=== PATIENT | male | born 1970 | race African-American/Black ===

== ENCOUNTER 2017-10-21 19:10 | Emergency (ER) | payer OTHER, MEDICAID, SELFPAY ==
[2017-10-21 19:12] VITALS: BP 158/117; PULSE 122; RESP 20; TEMP 38.2; O2SAT 94; BMI 51.6
--- NOTE | 2017-10-21 19:19 | ED.DCSUM_ITS ---
- ER Visit Summary Date of Service: 10/21/17 Chief Complaint: Cough, fever, chills History of Present Illness: The patient is a 47 M with history of coronary vascular disease status post stenting, diabetes, hypertension presents with cough, fever, and chills. Patient symptoms began yesterday. He states he started with a mild sore throat and some myalgias. Over the past 24 hours, he had worsening cough. He does describe some scant sputum. He states he has had episodes where his cough somewhat she felt like he wanted to vomit. He has had no chest pain. He denies leg swelling or orthopnea. He has 2 young children at home who are sick, but they have a diarrhea illness. He began have a fevers today. He has no underlying history of lung disease. He does not smoke. Physical Examination: Vital signs reviewed General: Well-nourished, well-developed Head: Normocephalic, atraumatic Eyes: Pupils equal and reactive, extraocular muscles intact Neck, supple, no lymphadenopathy Heart: Regular rate and rhythm Respiratory: No distress, scant wheezing heard throughout Abdomen: Soft, nontender, nondistended, no peritoneal signs Back: Nontender Extremities: Nontender, no edema, no cords Skin: Normal color no rash Neuro: Alert and oriented, no focal or lateralizing deficits Test Results: [] Emergency Department Course and Treatment: The patient did have scant wheezing heard in all lung hickman. He was given a nebulized aerosol with some improvement. He did have a T-max of 100.7. IV was established. He was given fluids, Toradol, and Zofran. He did have improvement of his myalgias. Screening labs were obtained and do demonstrate a chronic anemia which is unchanged. His x-ray does not show focal infiltrate. The patient's had cough with some scant sputum. I am going to treat him for an infectious bronchitis. He is started on doxycycline here. He is counseled on concerning symptoms and reasons to return. He has no hypoxia. He is resting comfortably. I do feel that he is safe for outpatient therapy. I am hesitant to start prednisone as the patient has significant diabetes that is borderline controlled. He is comfortable with this plan of care. Treatment Plan: [] Disposition: Discharge Impression: 1. Infectious bronchitis This note was generated with [employer] software. It may contain incorrect words, spelling, and punctuation that were not noted in review of the chart prior to signing ED Disposition - Plan for ED Patient: Chief Complaint: Cough Instructions: ED Upper Resp Infec Abx Tx Prescriptions: Albuterol Inhaler [Ventolin Hfa] 1 - 2 puff INHALATION Q4H PRN PRN #1 inhaler PRN Reason: Wheezing Benzonatate [Tessalon Perle] 200 mg PO TID PRN PRN #20 cap PRN Reason: Cough Doxycycline Monohydrate 100 mg PO BID #20 cap Referrals: Darion Jasmine DO [Primary Care Provider] -
[2017-10-21] MEDS: Ketorolac 30 MG/ML Syringe IV (19:27)
[2017-10-21] MEDS: Ondansetron 4 MG/2 ML Vial IV (19:27)
[2017-10-21] MEDS: Acetaminophen 500 MG Tablet 1000 MG PO (19:27)
[2017-10-21] MEDS: Ipratropium/Albuterol Sulfate 3 ML AMPUL.NEB INHALATION (19:32)
--- NOTE | 2017-10-21 19:50 | RAD_ITS ---
STUDY: X-RAY CHEST REASON FOR EXAM: Male, 47 years old. Malaise TECHNIQUE: Frontal and lateral views of the chest COMPARISON: 10/20/2015 FINDINGS: The lungs are clear. There are no pleural effusions. There is no pneumothorax. The heart is normal in size. The visualized osseous structures are within normal limits. RAD/Chest PA and Lateral IMPRESSION: No acute thoracic pathology. Electronically Signed: Fabien Padilla, at 20:24 EDT Tel , Service support ,
[2017-10-21 19:53] VITALS: PULSE 122; RESP 20
[2017-10-21 20:16] LABS: Absolute Lymphocyte Count 0.82 X10^3/ul (0.83-4.51); Absolute Neutrophil Count 4.7 X10^3/uL (2.0-7.7); Basophil# 0.03 X10^3/uL; Basophil% 0.4 % (0-1); Eosinophil# 0.11 X10^3/uL; Eosinophils% 1.5 % (0-5); Hematocrit 38.4 % (40-54); Hemoglobin 12.4 g/dl (13.0-16.5); Lymphocyte # 0.82 X10^3/ul (4.0); Lymphocyte % 11.5 % (19-41); Mean Corp Hgb Conc 32.3 g/gl (32-36); Mean Corpuscular Hgb 27.2 pg (27.0-32.0); Mean Corpuscular Volume 84.2 fL (80-94); Mean Platelet Vol. 11.6 fl (6.2-12.0); Monocyte# 1.45 X10^3/uL; Monocyte% 20.3 % (0-10); Neutrophil # 4.73 X10^3/uL (2.7-7.7); Platelet Count 253 K/mm3 (150-450); RBC Distribution Width CV 14.8 % (11.6-14.6); RBC Distribution Width SD 45.4 fl (35.1-43.9); Red Blood Count 4.56 M/mm3 (4.6-6.2); White Blood Count 7.2 K/mm3 (4.4-11.0)
[2017-10-21 20:21] LABS: POSITIVE COUNT NO; POSITIVE DIFFERENTIAL NO; POSITIVE MORPHOLOGY NO
[2017-10-21 20:34] LABS: Anion Gap 9 (5-15); BUN 22 mg/dL (7-18); BUN/Creat Ratio 15.5 RATIO (10-20); Chloride 101 mmol/L (98-107); Creatinine, Serum 1.42 mg/dL (0.70-1.30); EST Glomerular Filtration Rate 57 mL/min (>60); Est Glom Filt Rate - Afr Amer 68 mL/min (>60); Estimated Creatinine Clearance 73.97 ml/min; Glucose 139 mg/dL (74-106); Potassium 5.3 mmol/L (3.5-5.1); Sodium Level 134 mmol/L (136-145)
[2017-10-21] MEDS: Doxycycline 100 MG CAPSULE PO (20:39)
[2017-10-21 20:40] VITALS: BP 137/72; PULSE 119; RESP 20; TEMP 37.8; O2SAT 92
== END 2017-10-21 20:50 | disposition home or self-care (01) ==
LOC: ED 20:13
PROVIDERS: Emergency Provider Emergency Medicine; Family Provider Family Medicine; PCP Family Medicine
DX: J20.8 Acute bronchitis due to other specified organisms (principal); D53.9 Nutritional anemia, unspecified; E66.9 Obesity, unspecified; I25.10 Atherosclerotic heart disease of native coronary artery without angina pectoris; E11.9 Type 2 diabetes mellitus without complications; I10 Essential (primary) hypertension; E78.00 Pure hypercholesterolemia, unspecified; Z95.5 Presence of coronary angioplasty implant and graft; Z79.82 Long term (current) use of aspirin; Z79.4 Long term (current) use of insulin; Z79.84 Long term (current) use of oral hypoglycemic drugs; Z79.899 Other long term (current) drug therapy
CPT/HCPCS: 71046; 80048; 85025; 87804; 94640; 96361; 96374; 96375; 99285; J7030; J7040; A4216; J2405

== ENCOUNTER → 2018-10-28 10:30 | Outpatient (CLI) | payer MEDICAID, SELFPAY ==
[2018-10-28 11:54] LABS: Absolute Lymphocyte Count 4.17 X10^3/ul (0.83-4.51); Basophil# 0.08 X10^3/uL; Eosinophils% 2.5 % (0-5); Hematocrit 42.2 % (40-54); Hemoglobin 13.8 g/dl (13.0-16.5); Lymphocyte # 4.17 X10^3/ul (4.0); Lymphocyte % 52.6 % (19-41); Mean Corp Hgb Conc 32.7 g/gl (32-36); Mean Corpuscular Hgb 27.4 pg (27.0-32.0); Mean Corpuscular Volume 83.9 fL (80-94); Mean Platelet Vol. 10.7 fl (6.2-12.0); Monocyte# 0.47 X10^3/uL; Monocyte% 5.9 % (0-10); Neutrophil % 37.9 % (47-70); POSITIVE COUNT NO; POSITIVE DIFFERENTIAL NO; POSITIVE MORPHOLOGY NO; Platelet Count 241 K/mm3 (150-450); RBC Distribution Width CV 14.6 % (11.6-14.6); RBC Distribution Width SD 44.3 fl (35.1-43.9); Red Blood Count 5.03 M/mm3 (4.6-6.2); White Blood Count 7.9 K/mm3 (4.4-11.0)
[2018-10-28 12:10] LABS: Microalbumin:Creatinine Ratio 86.3 mg/g CRE (<30 mg/g CRE)
[2018-10-28 12:12] LABS: ALB/GLOB Ratio 0.9 RATIO (0.9-2.4); AST(SGOT) 40 U/L (15-37); Alanine Aminotransfer ALT/SGPT 60 U/L (16-61); Alkaline Phosphatase 75 U/L (45-117); Anion Gap 7 (5-15); BUN 14 mg/dL (7-18); BUN/Creat Ratio 11.6 RATIO (10-20); Chloride 105 mmol/L (98-107); Cholesterol 204 mg/dL (200); Creatinine, Serum 1.21 mg/dL (0.70-1.30); EST Glomerular Filtration Rate 68 mL/min (>60); Est Glom Filt Rate - Afr Amer 82 mL/min (>60); Globulin 4.3 g/dL (2.2-4.2); Glucose 124 mg/dL (74-106); High Density Lipoprotein 40 mg/dL; Potassium 3.8 mmol/L (3.5-5.1); Protein, Total 8.3 g/dL (6.4-8.2); Sodium Level 139 mmol/L (136-145); Triglycerides 214 mg/dL; Uric Acid 8.4 mg/dL (3.5-7.2); Very Low Density Lipoprotein 43 mg/dL (5-40)
[2018-10-28 12:22] LABS: Hemoglobin A1c 7.9 % (4.2-6.3)
== END ==
PROVIDERS: Family Provider Family Medicine; PCP Family Medicine; Referring Provider Family Medicine; Visit Provider Family Medicine
DX: E11.59 Type 2 diabetes mellitus with other circulatory complications (principal); I12.9 Hypertensive chronic kidney disease with stage 1 through stage 4 chronic kidney disease, or unspecified chronic kidney disease; E11.22 Type 2 diabetes mellitus with diabetic chronic kidney disease; N18.3 Chronic kidney disease, stage 3 (moderate); E78.5 Hyperlipidemia, unspecified
CPT/HCPCS: 36415; 80053; 80061; 82043; 82570; 83036; 84550; 85025

== ENCOUNTER 2021-02-06 03:58 | Emergency (ER) | payer MEDICAID, SELFPAY ==
[2021-02-06 04:00] VITALS: BP 207/126; PULSE 107; RESP 20; TEMP 36.1; O2SAT 98; BMI 46.2
--- NOTE | 2021-02-06 04:28 | CT_ITS ---
STUDY: CT ABDOMEN AND PELVIS WITH CONTRAST REASON FOR EXAM: Male, 50 years old. Colitis. TECHNIQUE: Transaxial images were obtained from the dome of the diaphragm to the symphysis pubis without oral contrast. IV 100mL Isovue-370 was administered. Sagittal and coronal images were reconstructed. Individualized dose optimization techniques were used for this CT. COMPARISON: 12/20/2015 CT abdomen. FINDINGS: Partially visualized lower chest: Lung bases unremarkable. Liver: Diffuse steatosis again demonstrated. No focal lesions are evident. Gallbladder and biliary tree: No visible gallstones. No pericholecystic inflammation. No biliary ductal dilation. Pancreas: No pancreatic lesions or inflammation. Spleen: Normal size, no splenic lesions. Adrenal glands: No concerning masses. Kidneys and ureters: No hydronephrosis or renal stones. No concerning masses. No ureteral dilation. Bowel: Normal appendix. Wall thickening of the cecum, ascending and transverse colon with mild adjacent edema. Sigmoid colon diverticulosis, no diverticulitis. Fluid throughout the bowel with no formed stool. Small bowel unremarkable. No obstruction. Urinary bladder: No stones or wall thickening. Reproductive:Normal size prostate. Vascular: No abdominal aortic aneurysm. Retroperitoneal and peritoneal spaces: No ascites or free air. No retroperitoneal lesions. Osseous: No acute osseous abnormality. Abdominal and pelvic wall: No concerning findings. CT/Abdomen/Pelvis W IV Cont ONLY IMPRESSION: Mild in severity infectious versus inflammatory right colitis with resulting diarrhea. Hepatic steatosis. Electronically Signed: Dima Hwang MD at 7:12 EDT Tel , Service support ,
[2021-02-06 04:44] LABS: Absolute Lymphocyte Count 1.59 X10^3/uL (0.83-4.51); Absolute Neutrophil Count 6.7 X10^3/uL (2.0-7.7); Basophil# 0.04 X10^3/uL; Basophil% 0.4 % (0-1); Eosinophil# 0.03 X10^3/uL; Eosinophils% 0.3 % (0-5); Hematocrit 43.4 % (40-54); Lymphocyte # 1.59 X10^3/ul (0.83-4.51); Lymphocyte % 16.8 % (19-41); Mean Corp Hgb Conc 32.3 g/dL (32-36); Mean Corpuscular Hgb 26.1 pg (27.0-32.0); Mean Platelet Vol. 9.9 fl (6.2-12.0); Monocyte# 1.02 X10^3/uL; Monocyte% 10.8 % (0-10); NRBC Flagged by Analyzer 0 % (0-5); Neutrophil # 6.74 X10^3/uL (2.7-7.7); Neutrophil % 71.4 % (47-70); Platelet Count 226 K/mm3 (150-450); RBC Distribution Width CV 14.2 % (11.6-14.6); RBC Distribution Width SD 41.1 fl (35.1-43.9); Red Blood Count 5.36 M/mm3 (4.6-6.2); White Blood Count 9.5 K/mm3 (4.4-11.0)
[2021-02-06] MEDS: Ondansetron 4 MG/2 ML Vial IV (04:45)
[2021-02-06] MEDS: 0.9% Normal Saline 1,000 ML 1000 ML IV (04:45)
[2021-02-06] MEDS: Dicyclomine 20 MG/2 ML Vial IM (04:47)
[2021-02-06 05:22] LABS: ALB/GLOB Ratio 0.8 RATIO (0.9-2.4); AST(SGOT) 26 U/L (15-37); Alanine Aminotransfer ALT/SGPT 40 U/L (16-61); Albumin, Serum 3.5 g/dL (3.2-5.0); Alkaline Phosphatase 83 U/L (45-117); Anion Gap 9 (5-15); BUN 11 mg/dL (7-18); BUN/Creat Ratio 9.6 RATIO (10-20); Calcium,Total 8.9 mg/dL (8.5-10.1); Chloride 102 mmol/L (98-107); Creatinine, Serum 1.15 mg/dL (0.70-1.30); EST Glomerular Filtration Rate 71 mL/min (>60); Est Glom Filt Rate - Afr Amer 86 mL/min (>60); Estimated Creatinine Clearance 88.36 ml/min; Globulin 4.4 g/dL (2.2-4.2); Glucose 180 mg/dL (74-106); Lipase 102 U/L (73-393); Potassium 3.6 mmol/L (3.5-5.1); Protein, Total 7.9 g/dL (6.4-8.2); Sodium Level 135 mmol/L (136-145)
--- NOTE | 2021-02-06 06:52 | EX.ED.DYSGE1 ---
HPI History of Present Illness Chief Complaint: Nausea/Vomiting/Diarrhea Informant: patient and spouse/S.O. Narrative Narrative: 50-year-old male presents to the emergency department with 2 days of nausea and diarrhea. He states that initially he thought it was going to be a quick 24-hour illness but is persisted. He notes intermittent abdominal cramping. He states he has had a prior history of diverticulitis. No reported fevers. He denies any bad food exposure [facility] Medical History Congestive heart failure (CHF) Hypertension Home Medications amlodipine 10 mg PO DAILY 12/01/14 [History Last Taken 10/20/15] aspirin 81 mg PO DAILY 12/01/14 [History Last Taken 10/20/15] clopidogrel 75 mg PO DAILY 12/01/14 [History Last Taken 10/20/15] furosemide 40 mg PO DAILY 12/01/14 [History Last Taken 10/20/15] lisinopril 20 mg PO BID 12/01/14 [History Last Taken 10/20/15] spironolactone 25 mg PO BID 12/01/14 [History Last Taken 10/20/15] allopurinol 400 mg PO DAILYCM 05/24/15 [History Last Taken 10/20/15] glipizide 10 mg PO BID 05/24/15 [History Last Taken 10/20/15] linagliptin [Tradjenta] 5 mg PO DAILY 10/20/15 [History Last Taken 10/20/15] oxycodone 7.5 mg PO 4X/DAY 10/20/15 [History Last Taken 10/20/15] atorvastatin 40 mg PO QHS #30 tablet 10/21/15 [Rx Last Taken Unknown] carvedilol 25 mg PO BID #60 tablet 10/21/15 [Rx Last Taken Unknown] albuterol sulfate 1 - 2 puff INHALATION Q4H PRN PRN #1 inhaler 10/21/17 [Rx Last Taken Unknown] benzonatate 200 mg PO TID PRN PRN #20 cap 10/21/17 [Rx Last Taken Unknown] doxycycline monohydrate 100 mg PO BID #20 cap 10/21/17 [Rx Last Taken Unknown] esomeprazole magnesium [Nexium] 20 mg PO BID 10/21/17 [History Last Taken Unknown] insulin degludec [Tresiba Flextouch U-100] 63 unit SQ DAILY 10/21/17 [History Last Taken Unknown] liraglutide [Victoza] 1.8 mg SQ DAILY 10/21/17 [History Last Taken Unknown] ciprofloxacin HCl 500 mg PO BID #14 tablet 02/06/21 [Rx Last Taken Unknown] dicyclomine 20 mg PO TIDAC #20 capsule 02/06/21 [Rx Last Taken Unknown] metronidazole 500 mg PO Q8H #21 tab 02/06/21 [Rx Last Taken Unknown] ondansetron 4 mg PO Q6H PRN PRN #15 tab 02/06/21 [Rx Last Taken Unknown] Allergy/AdvReac Type Severity Reaction Status Date / Time Penicillins Allergy Intermediate Rash Verified 02/06/21 03:58 hydrocodone bitartrate Allergy Mild Itching Verified 02/06/21 03:58 [From Vicodin] Social History (Updated 02/06/21 @ 06:[address] Justen Gaytan, DO) Smoking Status: Never smoker substance use type: does not use ROS ROS ED Constitutional Constitutional ED: Denies chills or weight loss Eyes Eyes: Denies change in vision or diplopia ENT ENT ED: Denies ear pain, rhinorrhea or sore throat Cardiovascular Cardiovascular: Denies chest pain, orthopnea, palpitations or racing heartbeat Respiratory/Chest Respiratory/Chest: Denies cough, dyspnea or orthopnea Gastrointestinal Gastrointestinal: Reports abdominal pain, diarrhea and nausea; Denies vomiting Genitourinary Genitourinary ED: Denies dysuria, hematuria or urinary frequency Musculoskeletal Musculoskeletal: Denies arthralgias or myalgias Integumentary Denies abscess or rash Neurologic Neurologic: Denies headache(s) or weakness Psychiatric Psychiatric: Denies anxiety, depression, suicidal ideation or suicidal thoughts Endocrine Endocrinology: Denies polydipsia, polyphagia or polyuria Allergic/Immunologic Allergic/Immunologic ED: Denies mouth swelling, tongue swelling or urticaria EXAM Physical Exam Const Vital Signs: 02/06/21 04:00 Temperature 96.9 F L Temperature Source Temporal Pulse Rate 107 H Respiratory Rate 20 H Blood Pressure 207/126 H Blood Pressure Mean 153 Pulse Ox 98 Oxygen Delivery Method Room Air Positive well nourished and well developed General Appearance ED: well developed HEENT Reports normocephalic, head/scalp atraumatic and moist mucous membranes Eyes PERRL and EOMs intact bilaterally Neck no lymphadenopathy, supple and no JVD Resp normal respiratory effort and clear to auscultation bilaterally Cardio regular rate, regular rhythm and no murmurs GI normal to inspection, nondistended, normoactive bowel sounds and non-tender Palpation: soft Back/Spine no CVA tenderness and normal ROM Extremity normal to inspection General Extremety ED: Negative for edema General Extremity: Negative for edema Neuro oriented x3 and CN's II-XII intact bilaterally Sensorium / Orientation: alert Motor Exam: strength 5/5 throughout Psych mental status grossly normal Mood & Affect: Negative for depressed or tearful Skin no rashes or lesions noted and no wounds MDM MDM MDM Narrative Medical decision making narrative: Patient received IV fluids Zofran and Bentyl here in the department has been resting more comfortably. Basic blood work was obtained and essentially negative. CT the abdomen pelvis demonstrates some wall thickening of the cecum the ascending and transverse colon with some mild adjacent edema questionable colitis. I recommend that he use Zofran Bentyl and Imodium as needed and continue to orally hydrate. I will also write for Cipro Flagyl. Lab Data Attestation: I reviewed the patient's lab results. Labs: Laboratory Results - last 24 hr 02/06/21 02/06/21 04:40 04:40 WBC 9.5 RBC 5.36 Hgb 14.0 Hct 43.4 MCV 81.0 MCH 26.1 L MCHC 32.3 RDW Std Deviation 41.1 RDW Coeff of Madhavi 14.2 Plt Count 226 MPV 9.9 Immature Gran % (Auto) 0.300 Neut % (Auto) 71.4 H Lymph % (Auto) 16.8 L [place] % (Auto) 10.8 H Eos % (Auto) 0.3 Baso % (Auto) 0.4 Absolute Neuts (auto) 6.7 Absolute Lymphs (auto) 1.59 Nucleated RBC % 0 Sodium 135 L Potassium 3.6 Chloride 102 Carbon Dioxide 24.0 Anion Gap 9 BUN 11 Creatinine 1.15 Estim Creat Clear Calc 88.36 Est GFR (MDRD) Af Amer 86 Est GFR (MDRD) Non-Af 71 BUN/Creatinine Ratio 9.6 L Glucose 180 H Calcium 8.9 Total Bilirubin 0.50 AST 26 ALT 40 Alkaline Phosphatase 83 Total Protein 7.9 Albumin 3.5 Globulin 4.4 H Albumin/Globulin Ratio 0.8 L Lipase 102 Radiography Diagnostic Testing: Radiology Impression Abdomen/Pelvis CT 02/06/21 04:28 IMPRESSION: Mild in severity infectious versus inflammatory right colitis with resulting diarrhea. Hepatic steatosis. Electronically Signed: Dima Hwang MD at 7:12 EDT Tel , Service support , Discharge Plan Triage Chief Complaint: Nausea/Vomiting/Diarrhea ED Provider: Justen Gaytan Dx/Rx/DC Orders Clinical Impression: Diarrhea, Nausea, Abdominal pain Instructions: ED Diarrhea, Unknown Cause Prescriptions: New ondansetron [ondansetron] 4 MG tablet 4 mg PO Q6H PRN PRN (Reason: Nausea) Qty: 15 RF: 0 dicyclomine 10 MG capsule 20 mg PO TIDAC Qty: 20 RF: 0 metronidazole [metronidazole] 500 MG tablet 500 mg PO Q8H Qty: 21 RF: 0 ciprofloxacin HCl [ciprofloxacin HCl] 500 MG tablet 500 mg PO BID Qty: 14 RF: 0 No Action furosemide 40 MG tablet 40 mg PO DAILY RF: 0 lisinopril 20 MG tablet 20 mg PO BID RF: 0 clopidogrel 75 MG tablet 75 mg PO DAILY RF: 0 spironolactone 25 MG tablet 25 mg PO BID RF: 0 amlodipine 10 MG tablet 10 mg PO DAILY RF: 0 aspirin 81 MG tablet,chewable 81 mg PO DAILY RF: 0 allopurinol 100 MG tablet 400 mg PO DAILYCM RF: 0 glipizide 5 MG tablet 10 mg PO BID RF: 0 oxycodone 5 MG tablet 7.5 mg PO 4X/DAY RF: 0 linagliptin [Tradjenta] 5 MG tablet 5 mg PO DAILY RF: 0 atorvastatin 40 MG tablet 40 mg PO QHS Qty: 30 RF: 0 carvedilol 25 MG tablet 25 mg PO BID Qty: 60 RF: 0 esomeprazole magnesium [Nexium] 20 MG capsule 20 mg PO BID RF: 0 liraglutide [Victoza 2-Kirby] 0.6 MG/0.1 ML pen injector 1.8 mg SQ DAILY RF: 0 insulin degludec [Tresiba FlexTouch U-100] 100 UNIT/ML insulin pen 63 unit SQ DAILY RF: 0 benzonatate 100 MG capsule 200 mg PO TID PRN PRN (Reason: Cough) Qty: 20 RF: 0 doxycycline monohydrate 100 MG capsule 100 mg PO BID Qty: 20 RF: 0 albuterol sulfate 1 INHALER inhaler 1 - 2 puff INHALATION Q4H PRN PRN (Reason: Wheezing) Qty: 1 RF: 0 Primary Care Provider: Darion Jasmine Referrals: Darion Jasmine DO [Primary Care Provider] - Activity Restrictions/Additional Instructions: Continue to orally hydrate. Imodium as needed for diarrhea Disposition Disposition: Home, Self Care
== END 2021-02-06 07:33 | disposition home or self-care (01) ==
PROVIDERS: Emergency Provider Emergency Medicine; PCP Family Medicine
DX: R19.7 Diarrhea, unspecified (principal); R11.2 Nausea with vomiting, unspecified; R10.9 Unspecified abdominal pain
CPT/HCPCS: 74177; 80053; 83690; 85025; 96361; 96372; 96374; 99283; J7030; Q9967; A4216; J2405

== ENCOUNTER 2021-10-22 01:11 | Emergency (ER) | payer MEDICAID, SELFPAY ==
[2021-10-22 01:12] VITALS: BP 223/159; PULSE 108; RESP 19; TEMP 38; O2SAT 97; BMI 49.2
--- NOTE | 2021-10-22 01:32 | EKG12_ITS ---
Test Reason : DYSRHYTHMIA Blood Pressure : / mmHG Vent. Rate : 103 BPM Atrial Rate : 103 BPM P-R Int : 222 ms QRS Dur : 102 ms QT Int : 356 ms P-R-T Axes : 052 005 054 degrees QTc Int : 466 ms Sinus tachycardia with 1st degree A-V block with Premature atrial complexes Low voltage QRS Borderline ECG Confirmed by KWADWO ARIZMENDI, JEFFREY ([id number]), mapping editor JULIUS BENSON ([id number]) on 10/22/2021 2:14:17 PM Referred By: JOE Confirmed By:JEFFREY BURKETT MD
--- NOTE | 2021-10-22 01:32 | RAD_ITS ---
INDICATION: cough EXAMINATION/TECHNIQUE: X-RAY - XR Chest 2 Views COMPARISON: 10/21/2017. FINDINGS: LUNGS: No consolidation. No pneumothorax. MEDIASTINUM: Unremarkable. CARDIAC SILHOUETTE: Not enlarged. BONES AND SOFT TISSUES: No acute abnormalities. IMPRESSION: No evidence of active intrathoracic disease. Electronically Signed: Ghazala Pierce MD at 2:42 EDT , RAD/Chest PA and Lateral
[2021-10-22 01:41] VITALS: PULSE 92; RESP 20; RESP 22; O2SAT 95
[2021-10-22] MEDS: Ipratropium/Albuterol Sulfate 3 ML AMPUL.NEB INHALATION (01:41)
[2021-10-22] MEDS: Albuterol 2.5 MG/3 ML VIAL.NEB. INHALATION (01:41)
[2021-10-22] MEDS: MethylPREDNISolone 125 MG/2 ML Vial IV (01:44)
[2021-10-22] MEDS: Labetalol (Prefilled) 20 MG/4 ML 40 MG IV (01:45)
[2021-10-22] MEDS: Acetaminophen 500 MG Tablet 1000 MG PO (01:45)
[2021-10-22] MEDS: cloNIDine HCl 0.2 MG Tablet PO (01:46)
[2021-10-22 01:51] LABS: Absolute Lymphocyte Count 1.16 X10^3/uL (0.83-4.51); Absolute Neutrophil Count 5.9 X10^3/uL (2.0-7.7); Basophil# 0.04 X10^3/uL; Basophil% 0.5 % (0-1); Eosinophil# 0.06 X10^3/uL; Eosinophils% 0.7 % (0-5); Hematocrit 44.2 % (40-54); Hemoglobin 14.4 g/dL (13.0-16.5); Lymphocyte # 1.16 X10^3/ul (0.83-4.51); Lymphocyte % 13.7 % (19-41); Mean Corp Hgb Conc 32.6 g/dL (32-36); Mean Corpuscular Hgb 26.4 pg (27.0-32.0); Mean Corpuscular Volume 81.1 fL (80-94); Mean Platelet Vol. 10.9 fl (6.2-12.0); Monocyte# 1.24 X10^3/uL; Monocyte% 14.7 % (0-10); NRBC Flagged by Analyzer 0 % (0-5); Neutrophil # 5.91 X10^3/uL (2.7-7.7); Platelet Count 215 K/mm3 (150-450); RBC Distribution Width CV 13.6 % (11.6-14.6); RBC Distribution Width SD 39.4 fl (35.1-43.9); Red Blood Count 5.45 M/mm3 (4.6-6.2); White Blood Count 8.4 K/mm3 (4.4-11.0)
[2021-10-22 01:55] VITALS: BP 175/103; PULSE 80; RESP 18; O2SAT 98
--- NOTE | 2021-10-22 01:56 | EX.ED.DYSGE1 ---
HPI History of Present Illness Chief Complaint: Shortness of Breath Narrative Narrative: Patient is a 51-year-old male who states that his entire family was sick with influenza about 2 to 3 weeks ago. He states he did not get out however and has been doing fine onto the last few days. He states now he has increased congestion and drainage and has been developing long bouts of coughing spells. He states that over the last day or so he developed a fever and feels like his shortness of breath has been slowly worsening. He reports vaping occasionally but denies any history of lung pathology or need for supplemental oxygen. With concern he is developing pneumonia he presents for evaluation [facility] Medical History CAD (coronary artery disease) Cardiomyopathy Congestive heart failure (CHF) Diabetes HLD (hyperlipidemia) Hypertension Morbid obesity with BMI of 40.0-44.9, adult [place] (obstructive sleep apnea) Systolic CHF, chronic Home Medications amlodipine 10 mg PO DAILY 12/01/14 [History Last Taken 10/20/15] aspirin 81 mg PO DAILY 12/01/14 [History Last Taken 10/20/15] clopidogrel 75 mg PO DAILY 12/01/14 [History Last Taken 10/20/15] furosemide 40 mg PO DAILY 12/01/14 [History Last Taken 10/20/15] lisinopril 20 mg PO BID 12/01/14 [History Last Taken 10/20/15] spironolactone 25 mg PO BID 12/01/14 [History Last Taken 10/20/15] allopurinol 400 mg PO DAILYCM 05/24/15 [History Last Taken 10/20/15] Tradjenta 5 mg PO DAILY 10/20/15 [History Last Taken 10/20/15] oxycodone 7.5 mg PO 4X/DAY 10/20/15 [History Last Taken 10/20/15] carvedilol 25 mg PO BID #60 tablet 10/21/15 [Rx Last Taken Unknown] albuterol sulfate 1 - 2 puff INHALATION Q4H PRN PRN #1 inhaler 10/21/17 [Rx Last Taken Unknown] benzonatate 200 mg PO TID PRN PRN #20 cap 10/21/17 [Rx Last Taken Unknown] esomeprazole magnesium [Nexium] 20 mg PO BID 10/21/17 [History Last Taken Unknown] insulin degludec [Tresiba Flextouch U-100] 93 unit SQ DAILY 10/21/17 [History Last Taken Unknown] liraglutide [Victoza] 19 mg SQ DAILY 10/21/17 [History Last Taken Unknown] albuterol sulfate [Ventolin HFA] 2 puff INHALATION Q4H PRN PRN #1 device 10/22/21 [Rx Last Taken Unknown] azelastine 2 spray INTRANASAL BID #30 ml 10/22/21 [Rx Last Taken Unknown] prednisone 40 mg PO DAILY 5 Days #10 tab 10/22/21 [Rx Last Taken Unknown] Allergy/AdvReac Type Severity Reaction Status Date / Time Penicillins Allergy Intermediate Rash Verified 10/22/21 01:17 hydrocodone bitartrate Allergy Mild Itching Verified 10/22/21 01:17 [From Vicodin] ciprofloxacin Allergy PT UNABLE Verified 10/22/21 01:17 TO RESPOND-NEEDS F/U Family History (Updated 10/22/21 @ 01:[address] Jewels Combs MD) Mother Heart disease Hypertension Father Heart disease Hypertension Surgical History (Updated 10/22/21 @ 01:[address] Jewels Combs MD) Coronary angioplasty status S/P hernia repair Social History (Updated 10/22/21 @ 02:[address] Jewels Combs MD) household members: spouse Smokeless tobacco user: other alcohol intake: never substance use type: does not use ROS ROS ED Constitutional Constitutional ED: Reports chills and fever(s) ENT ENT ED: Reports rhinorrhea and sore throat Cardiovascular Cardiovascular: Denies chest pain Respiratory/Chest Respiratory/Chest: Reports cough and dyspnea Gastrointestinal Gastrointestinal: Denies abdominal pain, diarrhea, nausea or vomiting Genitourinary Genitourinary ED: Denies dysuria Musculoskeletal Musculoskeletal: Reports myalgias Integumentary Denies rash Neurologic Neurologic: Denies headache(s) Hematologic/Lymphatic Hematologic/Lymphatic: Reports easy bleeding and easy bruising EXAM Physical Exam Const Vital Signs: 10/22/21 01:12 10/22/21 01:41 10/22/21 01:55 Temperature 100.4 F H Temperature Source Oral Pulse Rate 108 H 92 80 Respiratory Rate 19 H 22 H 18 Respiratory Effort Non-Labored Short of Breath Respiratory Depth Shallow Respiratory Pattern Tachypnea Blood Pressure 223/159 H 175/103 H Blood Pressure Mean 180 127 Pulse Ox 97 95 98 Oxygen Delivery Method Room Air Room Air Room Air 10/22/21 02:39 Temperature Temperature Source Pulse Rate Respiratory Rate Respiratory Effort Respiratory Depth Respiratory Pattern Blood Pressure 186/111 H Blood Pressure Mean 136 Pulse Ox 93 Oxygen Delivery Method Room Air Positive well nourished, well developed and obese General Appearance ED: well developed Nutritional Appearance: obese HEENT Reports moist mucous membranes HEENT Narrative: Cobblestoning the posterior pharynx consistent with sinus drainage but no airway edema or compromise no tongue or lip swelling noted Eyes PERRL and EOMs intact bilaterally Neck supple and no JVD Neck Narrative: Positive anterior cervical lymphadenopathy Resp normal respiratory effort Resp Narrative: Breath sounds are diminished throughout with diffuse expiratory wheeze and rhonchi noted in the right lower lobe however no signs of respiratory distress Cardio regular rhythm Rate: tachycardic GI normal to inspection, nondistended, normoactive bowel sounds, non-tender, non-distended and no masses Auscultation: normoactive bowel sounds Palpation: soft Extremity normal to inspection Extremity Narrative: No asymmetric edema no pitting edema negative Homans' sign bilaterally Neuro oriented x3 and CN's II-XII intact bilaterally Sensorium / Orientation: alert Motor Exam: strength 5/5 throughout Psych mental status grossly normal Skin no rashes or lesions noted MDM MDM MDM Narrative Medical decision making narrative: Patient presented to the ER slightly febrile 100.4 and hypertensive but states he is not been taking his blood pressure medication. He does not have signs of respiratory distress and his pulse ox is in the mid 90s on room air. He has been exposed to people with viral syndrome at home but he does have asymmetric rhonchi on his exam concerning for pneumonia development. Therefore because of his past medical history fever and hypertension I did elect to perform basic laboratory studies as well as viral swabs and chest x-ray. Labs revealed no clinically significant findings. Viral swabs for Covid and influenza were negative. Chest x-ray also revealed no acute lung pathology. Patient was given steroids and breathing treatments and on reevaluation reports feeling much better and he remains in no acute respiratory distress with a pulse ox in the mid 90s. At this time his history and exam appears to be consistent with a viral infection but as he is not requiring supplemental oxygen or having signs of endorgan damage from hypertension he is safe for discharge Lab Data Attestation: I reviewed the patient's lab results. Labs: Laboratory Results - last 24 hr 10/22/21 10/22/21 10/22/21 01:45 01:45 01:45 WBC 8.4 RBC 5.45 Hgb 14.4 Hct 44.2 MCV 81.1 MCH 26.4 L MCHC 32.6 RDW Std Deviation 39.4 RDW Coeff of Madhavi 13.6 Plt Count 215 MPV 10.9 Immature Gran % (Auto) 0.400 Neut % (Auto) 70.0 Lymph % (Auto) 13.7 L [place] % (Auto) 14.7 H Eos % (Auto) 0.7 Baso % (Auto) 0.5 Absolute Neuts (auto) 5.9 Absolute Lymphs (auto) 1.16 Nucleated RBC % 0 Sodium 133 L Potassium 4.1 Chloride 101 Carbon Dioxide 26.0 Anion Gap 6 BUN 10 Creatinine 1.22 Estim Creat Clear Calc 82.35 Est GFR (MDRD) Af Amer 80 Est GFR (MDRD) Non-Af 66 BUN/Creatinine Ratio 8.2 L Glucose 240 H Calcium 9.2 Magnesium 1.9 B-Natriuretic Peptide 122.0 H Radiography Diagnostic Testing: Clinical Impression(s) from Imaging Studies Chest X-Ray 10/22/21 01:32 Chest x-ray as interpreted by the emergency medicine physician reveals no acute infiltrate pneumothorax or pleural effusion Discharge Plan Triage Chief Complaint: Shortness of Breath ED Provider: James Muñoz Dx/Rx/DC Orders Clinical Impression: Viral URI with cough, Hypertension Instructions: Controlling High Blood Pressure, ED URI, Viral W/ Wheezing (Adult) Prescriptions: New prednisone 20 mg tablet 40 mg PO DAILY 5 Days Qty: 10 RF: 0 azelastine 137 mcg (0.1 %) aerosol,spray 2 spray intranasal BID Qty: 30 RF: 0 albuterol sulfate [Ventolin HFA] 90 mcg/actuation HFA aerosol inhaler 2 puff inhalation Q4H PRN PRN (Reason: Wheezing) Qty: 1 RF: 1 No Action furosemide 40 MG tablet 40 mg PO DAILY RF: 0 lisinopril 20 MG tablet 20 mg PO BID RF: 0 clopidogrel 75 MG tablet 75 mg PO DAILY RF: 0 spironolactone 25 MG tablet 25 mg PO BID RF: 0 amlodipine 10 MG tablet 10 mg PO DAILY RF: 0 aspirin 81 MG tablet,chewable 81 mg PO DAILY RF: 0 allopurinol 100 MG tablet 400 mg PO DAILYCM RF: 0 oxycodone 5 MG tablet 7.5 mg PO 4X/DAY RF: 0 Tradjenta 5 MG tablet 5 mg PO DAILY RF: 0 carvedilol 25 MG tablet 25 mg PO BID Qty: 60 RF: 0 esomeprazole magnesium [Nexium] 20 MG capsule 20 mg PO BID RF: 0 Victoza 2-Kirby 0.6 MG/0.1 ML pen injector 19 mg SQ DAILY RF: 0 Tresiba FlexTouch U-100 100 UNIT/ML insulin pen 93 unit SQ DAILY RF: 0 benzonatate 100 MG capsule 200 mg PO TID PRN PRN (Reason: Cough) Qty: 20 RF: 0 albuterol sulfate 1 INHALER inhaler 1 - 2 puff INHALATION Q4H PRN PRN (Reason: Wheezing) Qty: 1 RF: 0 Primary Care Provider: Darion Jasmine Referrals: Darion Jasmine, [Primary Care Provider] - Activity Restrictions/Additional Instructions: Please continue with Tylenol and/or Motrin to control your fever and take your medications as directed to help reduce cough and improve your breathing. Please return to the ER should you have any further concerns or symptoms fail to improve with outpatient Disposition Disposition: Home, Self Care
[2021-10-22 02:05] LABS: Anion Gap 6 (5-15); BUN 10 mg/dL (7-18); BUN/Creat Ratio 8.2 RATIO (10-20); Calcium,Total 9.2 mg/dL (8.5-10.1); Chloride 101 mmol/L (98-107); Creatinine, Serum 1.22 mg/dL (0.70-1.30); EST Glomerular Filtration Rate 66 mL/min (>60); Est Glom Filt Rate - Afr Amer 80 mL/min (>60); Estimated Creatinine Clearance 82.35 ml/min; Glucose 240 mg/dL (74-106); Magnesium 1.9 mg/dL (1.6-2.6); Potassium 4.1 mmol/L (3.5-5.1); Sodium Level 133 mmol/L (136-145)
[2021-10-22 02:39] VITALS: BP 186/111; O2SAT 93
--- NOTE | 2021-10-22 02:43 | CPS ---
x1 Albuterol given to pt. as well
[2021-10-22 05:00] VITALS: BP 139/88; PULSE 84; O2SAT 98
== END 2021-10-22 05:08 | disposition home or self-care (01) ==
PROVIDERS: Emergency Provider Emergency Medicine; PCP Family Medicine; Visit Provider Emergency Medicine
DX: J06.9 Acute upper respiratory infection, unspecified (principal); I11.0 Hypertensive heart disease with heart failure; I50.22 Chronic systolic (congestive) heart failure; I42.9 Cardiomyopathy, unspecified; E11.9 Type 2 diabetes mellitus without complications; Z79.4 Long term (current) use of insulin; I25.10 Atherosclerotic heart disease of native coronary artery without angina pectoris; G47.33 Obstructive sleep apnea (adult) (pediatric); E66.9 Obesity, unspecified; Z79.82 Long term (current) use of aspirin; Z79.899 Other long term (current) drug therapy
CPT/HCPCS: 83735; 96375; 71046; 93005; 94640; G0463; 85025; 87428; 96374; 83880; 99282; 80048; 99251; A4216

== ENCOUNTER 2021-10-23 18:18 | Inpatient (IN) | payer MEDICAID, SELFPAY ==
[2021-10-23] VITALS (15 sets, daily range): BP systolic 123–231; BP diastolic 73–168; PULSE 95–122; RESP 15–24; TEMP 36.4–37.1; O2SAT 90–98; BMI 48.5; BMI 48.4
--- NOTE | 2021-10-23 18:35 | EKG12_ITS ---
Test Reason : TACHYCARIA Blood Pressure : / mmHG Vent. Rate : 109 BPM Atrial Rate : 109 BPM P-R Int : 198 ms QRS Dur : 100 ms QT Int : 324 ms P-R-T Axes : 067 024 034 degrees QTc Int : 436 ms Sinus tachycardia with Premature atrial complexes Poor R- wave progression Nonspecific T- wave abnormalities Confirmed by JAUN ARIZMENDI, LIVAN ([id number]), primer expeditor and drier MIKE GARCIA ([id number]) on 10/29/2021 11:04:36 AM Referred By: Confirmed By:LIVAN ZAMORANO MD
--- NOTE | 2021-10-23 18:37 | EDS_ITS ---
HPI History of Present Illness Chief Complaint: Shortness of Breath Detail of Chief Complaint: Shortness of breath, orthopnea Informant: patient Onset/Context/Timing Onset: Days Context: Sudden Onset Timing: Continuous and Waxes and wanes Quality: Shortness of breath at rest and increased with activity Location: Respiratory Current Severity: Mild Maximum Severity: Moderate Worsened by: Activity Relieved by: Nothing Associated Symptoms Associated Symptoms: Wheezing Narrative Narrative: Patient is a 51-year-old male with history of coronary disease, hypertension, hypercholesterolemia, diabetes mellitus and congestive heart failure who was recently seen and diagnosed with upper respiratory infection. He presents today because of increased shortness of breath. He presently denies rhinorrhea or sore throat. He does have a cough which is nonproductive. He does endorse two-pillow orthopnea. He was unaware that his lower extremity exam mildly swollen. He has not taken any of his blood pressure medication since yesterday. He is not compliant with his CPAP/BiPAP machine. He denies chest pressure or heaviness. He denies fever, chills night sweats. Denies weight loss or weight gain. He denies abdominal pain or back pain. He denies urologic symptoms. He denies leg pain, discoloration or asymmetry. There is no history of DVT. Prior similar symptoms: Yes (Diagnosed with upper respiratory infection) Recent Illness/Hospitalization: [facility] Medical History CAD (coronary artery disease) Cardiomyopathy Congestive heart failure (CHF) Diabetes HLD (hyperlipidemia) Hypertension Morbid obesity with BMI of 40.0-44.9, adult GEORGES (obstructive sleep apnea) Systolic CHF, chronic Home Medications amlodipine 10 mg PO DAILY 12/01/14 [History Last Taken 10/20/15] aspirin 81 mg PO DAILY 12/01/14 [History Last Taken 10/20/15] clopidogrel 75 mg PO DAILY 12/01/14 [History Last Taken 10/20/15] furosemide 40 mg PO DAILY 12/01/14 [History Last Taken 10/20/15] lisinopril 20 mg PO BID 12/01/14 [History Last Taken 10/20/15] spironolactone 25 mg PO BID 12/01/14 [History Last Taken 10/20/15] allopurinol 400 mg PO DAILYCM 05/24/15 [History Last Taken 10/20/15] Tradjenta 5 mg PO DAILY 10/20/15 [History Last Taken 10/20/15] oxycodone 7.5 mg PO 4X/DAY 10/20/15 [History Last Taken 10/20/15] carvedilol 25 mg PO BID #60 tablet 10/21/15 [Rx Last Taken Unknown] albuterol sulfate 1 - 2 puff INHALATION Q4H PRN PRN #1 inhaler 10/21/17 [Rx Last Taken Unknown] benzonatate 200 mg PO TID PRN PRN #20 cap 10/21/17 [Rx Last Taken Unknown] esomeprazole magnesium [Nexium] 20 mg PO BID 10/21/17 [History Last Taken Unknown] insulin degludec [Tresiba Flextouch U-100] 93 unit SQ DAILY 10/21/17 [History Last Taken Unknown] liraglutide [Victoza] 19 mg SQ DAILY 10/21/17 [History Last Taken Unknown] albuterol sulfate [Ventolin HFA] 2 puff INHALATION Q4H PRN PRN #1 device 10/22/21 [Rx Last Taken Unknown] azelastine 2 spray INTRANASAL BID #30 ml 10/22/21 [Rx Last Taken Unknown] prednisone 40 mg PO DAILY 5 Days #10 tab 10/22/21 [Rx Last Taken Unknown] Allergy/AdvReac Type Severity Reaction Status Date / Time Penicillins Allergy Intermediate Rash Verified 10/23/21 18:21 hydrocodone bitartrate Allergy Mild Itching Verified 10/23/21 18:21 [From Vicodin] ciprofloxacin Allergy PT UNABLE Verified 10/23/21 18:21 TO RESPOND-NEEDS F/U Family History Mother Heart disease Hypertension Father Heart disease Hypertension Surgical History Coronary angioplasty status S/P hernia repair Social History household members: spouse Smoking Status: Never smoker Smokeless tobacco user: other alcohol intake: never substance use type: does not use ROS ROS ED Constitutional Constitutional ED: Denies chills, fever(s), subjective, sweats or weight loss Eyes Eyes: Denies blurry vision, change in vision or diplopia ENT ENT ED: Denies ear pain, rhinorrhea or sore throat Cardiovascular Cardiovascular: Reports orthopnea, palpitations and racing heartbeat; Denies chest pain or paroxysmal nocturnal dyspnea Respiratory/Chest Respiratory/Chest: Reports cough, dyspnea, dyspnea on exertion and orthopnea; Denies paroxysmal nocturnal dyspnea or sputum Gastrointestinal Gastrointestinal: Denies abdominal pain, constipation, diarrhea, nausea or vomiting Genitourinary Genitourinary ED: Denies dysuria, hematuria or urinary frequency Musculoskeletal Musculoskeletal: Denies arthralgias, back pain, myalgias or neck pain Integumentary Denies rash Neurologic Neurologic: Denies headache(s), paresthesias or weakness Endocrine Endocrinology: Denies polydipsia, polyphagia or polyuria EXAM Physical Exam Const Vital Signs: 10/23/21 18:18 10/23/21 18:43 Temperature 97.8 F 98.7 F Temperature Source Oral Temporal Pulse Rate 121 H 111 H Respiratory Rate 24 H 20 H Blood Pressure 231/168 H 196/132 H Blood Pressure Mean 189 153 Pulse Ox 97 97 Oxygen Delivery Method Room Air Room Air Positive well nourished, well developed and obese General Appearance ED: well developed and other Patient has mild respiratory distress. He is tachycardic and tachypneic. He is not hypoxic. His blood pressure is markedly elevated 231/168. ; Negative for cyanotic, diaphoretic, NAD or pallor Nutritional Appearance: obese HEENT Reports TM's clear and moist mucous membranes HEENT Narrative: Uvula is midline. There is no angioedema. There is no erythema or exudate of the posterior pharynx. Negative for trauma or tenderness Tympanic Membrane ED: Yes TM's clear Eyes PERRL and EOMs intact bilaterally General Eye ED: Negative for pale conjunctiva or scleral icterus Neck no lymphadenopathy and supple General: other Chest Wall Chest: other Trachea is midline. There is no inspiratory expiratory stridor. Resp No normal respiratory effort and No clear to auscultation bilaterally Effort and Inspection: Negative for pain with movement Auscultation: rales right base and wheezes expiratory wheezes, posterior and throughout; Negative for rhonchi Cardio regular rhythm, S1 normal heart sound, S2 normal heart sound and no murmurs Rate: tachycardic GI normal to inspection, nondistended, normoactive bowel sounds, non-tender and non-distended Auscultation: normoactive bowel sounds Palpation: soft Back/Spine no CVA tenderness General Back: Negative for CVA tenderness Cervical Spine: Negative for cervical spine tenderness Thoracic Spine / Upper Back: Negative for thoracic spinal tenderness Extremity normal to inspection Extremity Narrative: Minimal pitting edema 1 to 2 mm General Extremety ED: Yes edema; Negative for tenderness General Extremity: edema Neuro oriented x3, CN's II-XII intact bilaterally and no sensory deficits noted Sensorium / Orientation: alert Motor Exam: strength 5/5 throughout Psych mental status grossly normal Skin no rashes or lesions noted and no wounds General Skin Exam: Negative for jaundice or pallor MDM MDM MDM Narrative Medical decision making narrative: Differential diagnosis is upper respiratory fraction with bronchospasm, congestive heart failure due to hypertensive urgency/emergency. Since he has not had a UA since 2015 UA was obtained to assess for proteinuria and hematuria and casts. Basic metabolic panel to assess renal function. CBC to evaluate white count and H&H. Troponin to rule out non- ST elevation TX since he had a non-ST elevation TX 5 years ago. BNP to evaluate for congestive heart failure. Will reassess blood pressure if his pressure is still markedly elevated after additional readings will initiate therapy. Lab Data Attestation: I reviewed the patient's lab results. Lab results narrative: Troponin was normal 2 days ago. Troponin today is 761. Patient was started on nitroglycerin for blood pressure reduction as well as preload reduction since there is evidence of mild heart failure on his chest x- ray. The hospitalist was paged for admission. Labs: Laboratory Results - last 24 hr 10/23/21 10/23/21 18:40 18:40 WBC 10.7 RBC 5.52 Hgb 15.0 Hct 43.8 MCV 79.3 L MCH 27.2 MCHC 34.2 RDW Std Deviation 39.4 RDW Coeff of Madhavi 13.7 Plt Count 225 MPV 10.7 Immature Gran % (Auto) 0.600 Neut % (Auto) 70.8 H Lymph % (Auto) 13.7 L [place] % (Auto) 12.0 H Eos % (Auto) 2.3 Baso % (Auto) 0.6 Absolute Neuts (auto) 7.6 Absolute Lymphs (auto) 1.47 Nucleated RBC % 0 Sodium 134 L Potassium 4.0 Chloride 102 Carbon Dioxide 26.0 Anion Gap 6 BUN 23 H Creatinine 1.47 H Estim Creat Clear Calc 68.34 Est GFR (MDRD) Af Amer 65 Est GFR (MDRD) Non-Af 53 L BUN/Creatinine Ratio 15.6 Glucose 317 H Calcium 9.1 Troponin I High Sens 761 H* Radiography Chest X-Ray - ED: 1 View (Single view portable chest x-ray reveals cephalization. Cardiac silhouette is unremarkable. Osseous structures are unremarkable. There is no infiltrate or fullness of the perihilar region. The chest x-ray interpreted by me at 1920.) Diagnostic Testing: Clinical Impression(s) from Imaging Studies Chest X-Ray 10/23/21 19:03 IMPRESSION: There are no acute findings. Electronically Signed: Ricardo Trevino MD at 19:38 EDT Reading Location ID and State: [facility] / MD , Service support , EKG Initial EKG: Attestation: I personally reviewed and interpreted this EKG as follows: Interpretation: Sinus Tachycardia (Ventricular rate is 109. ND interval is 198 ms. Cures duration 100 ms. QT duration 3 and 24 ms. [place] is normal. Computer is reading premature atrial beat. There is 1 premature beat noted. There is no acute ischemic changes. Decreased anterior force noted.) Critical Care Time Critical Care Time: Yes Critical care time (excluding procedures): 30-74 minutes (33 minutes), Including time spent: (History, physical, documentation, review of prior visit, interpretation laboratory results and initiation of therapy), Discussing w/Patient &/or Family/Automatic Vulcanizing Operator, Discussing w/Consultants and Arranging Admission or Transfer Discharge Plan Dx/Rx/DC Orders Clinical Impression: Non-ST elevated myocardial infarction, Congestive heart failure (CHF), Hypertensive emergency Disposition Disposition: Acute Care Hospital [facility]
[2021-10-23 18:46] LABS: Absolute Lymphocyte Count 1.47 X10^3/uL (0.83-4.51); Absolute Neutrophil Count 7.6 X10^3/uL (2.0-7.7); Basophil# 0.06 X10^3/uL; Basophil% 0.6 % (0-1); Eosinophil# 0.25 X10^3/uL; Eosinophils% 2.3 % (0-5); Hematocrit 43.8 % (40-54); Lymphocyte # 1.47 X10^3/ul (0.83-4.51); Lymphocyte % 13.7 % (19-41); Mean Corp Hgb Conc 34.2 g/dL (32-36); Mean Corpuscular Hgb 27.2 pg (27.0-32.0); Mean Corpuscular Volume 79.3 fL (80-94); Mean Platelet Vol. 10.7 fl (6.2-12.0); Monocyte# 1.29 X10^3/uL; NRBC Flagged by Analyzer 0 % (0-5); Neutrophil # 7.61 X10^3/uL (2.7-7.7); Neutrophil % 70.8 % (47-70); Platelet Count 225 K/mm3 (150-450); RBC Distribution Width CV 13.7 % (11.6-14.6); RBC Distribution Width SD 39.4 fl (35.1-43.9); Red Blood Count 5.52 M/mm3 (4.6-6.2); White Blood Count 10.7 K/mm3 (4.4-11.0)
--- NOTE | 2021-10-23 19:03 | RAD_ITS ---
STUDY: X-RAY CHEST REASON FOR EXAM: Male, 51 years old. CHEST PAIN Dyspnea, orthopnea and wheezing TECHNIQUE: XR Chest 1 View COMPARISON: Study done yesterday FINDINGS: There is no demonstrated pleural abnormality. Normal size heart. Normal mediastinum and marshal. Normal visualized pulmonary arteries. Normal visualized aortic arch and descending thoracic aorta. Normal visualized thoracic spine. Normal visualized ribs, clavicles, and shoulders. There is no demonstrated abnormality of the visualized soft tissue structures of the upper abdomen. RAD/Chest 1 View (Portable) IMPRESSION: There are no acute findings. Electronically Signed: Ricardo Trevino MD at 19:38 EDT ,
[2021-10-23 19:16] LABS: Anion Gap 6 (5-15); BUN 23 mg/dL (7-18); BUN/Creat Ratio 15.6 RATIO (10-20); Calcium,Total 9.1 mg/dL (8.5-10.1); Chloride 102 mmol/L (98-107); Creatinine, Serum 1.47 mg/dL (0.70-1.30); EST Glomerular Filtration Rate 53 mL/min (>60); Est Glom Filt Rate - Afr Amer 65 mL/min (>60); Estimated Creatinine Clearance 68.34 ml/min; Glucose 317 mg/dL (74-106); Sodium Level 134 mmol/L (136-145); Troponin-I HS 761 pg/mL (3.0-78.0)
--- NOTE | 2021-10-23 19:30 | PCM.HP.STD ---
HPI - General General Date of Admission: 10/23/21 Date of Service: 10/23/21 Chief Complaint: Fatigue, malaise, severe coughing fits, worsening. HPI Narrative The patient is a 51 y/o M w/ PMHx: GEORGES on CPAP bilevel per records but patient denies ever having it officially set-up at home, CAD s/p PCI circumflex and LAD, GERD, HTN, HLD, Chronic CHF/Ischemic Cardiomyopathy, Hx Lung CA, Gout, Diabetes mellitus type II, Morbid Obesity with recent evaluation [facility] ED on 10/22/21 with history of his entire family recently being ill with influenza A approximately 2 to 3 weeks prior noting that over the last few days he seemed to improve initially however now he has had increased congestion, significant coughing spells without productive sputum with onset of fever and shortness of breath which has progressively been worsening prompting eventual ED evaluation with admitted failure to take his home medications including his hypertensive regimen with discharge on steroids and PRN albuterol however he noted continued fatigue, malaise and severe bouts of coughing prompting ED return for repeat evaluation on 10/23/21. He notes he was never officially set-up for CPAP and that he has not taken his medications x 3 days secondary to how poorly he had been feeling. Work-up on 10/23/21 included T 98.7, heart rate 111, BP 196/132, respiratory rate 20, 97% on room air, CBC with WC 10.7, hemoglobin 15, platelet 225 without marked shift, BMP with sodium 134, BUN/creat 23/1.47, glucose 317, troponin VII 61, BNP pending, chest x-ray with concern for mild cephalization although radiology read no acute cardiopulmonary findings, EKG with sinus tachycardia with no acute ischemic changes. In the ED patient administered aspirin 324 mg p.o. x1 as well as initiated on a nitroglycerin drip. Patient of note had work-up and interventions on 10/22/21 that including T 100.4, heart rate 108, BP 223/159, respiratory rate 19, 97% on room air--> heart rate 80, BP 175/103, respiratory rate 18, 98% on room air, CBC with WBC 8.4, hemoglobin 14.4, platelet 215 without marked shift, BMP with sodium 133, glucose 240, BNP 122, rapid influenza negative, rapid Covid antigen negative, magnesium 1.9, EKG with ST without acute evidence of ischemia, chest x-ray with no acute cardiopulmonary findings. In the ED patient administered Solu-Medrol, labetalol 40 mg IV x1, clonidine 0.2 mg p.o. x1, albuterol, DuoNeb therapy and Tylenol. [facility] Medical History CAD (coronary artery disease) Cardiomyopathy Congestive heart failure (CHF) Diabetes HLD (hyperlipidemia) Hypertension Morbid obesity with BMI of 40.0-44.9, adult GEORGES (obstructive sleep apnea) Systolic CHF, chronic Home Medications amlodipine 10 mg PO DAILY 12/01/14 [History Last Taken 10/20/15] aspirin 81 mg PO DAILY 12/01/14 [History Last Taken 10/20/15] clopidogrel 75 mg PO DAILY 12/01/14 [History Last Taken 10/20/15] furosemide 40 mg PO DAILY 12/01/14 [History Last Taken 10/20/15] lisinopril 20 mg PO BID 12/01/14 [History Last Taken 10/20/15] spironolactone 25 mg PO BID 12/01/14 [History Last Taken 10/20/15] allopurinol 400 mg PO DAILYCM 05/24/15 [History Last Taken 10/20/15] Tradjenta 5 mg PO DAILY 10/20/15 [History Last Taken 10/20/15] oxycodone 7.5 mg PO 4X/DAY 10/20/15 [History Last Taken 10/20/15] carvedilol 25 mg PO BID #60 tablet 10/21/15 [Rx Last Taken Unknown] albuterol sulfate 1 - 2 puff INHALATION Q4H PRN PRN #1 inhaler 10/21/17 [Rx Last Taken Unknown] benzonatate 200 mg PO TID PRN PRN #20 cap 10/21/17 [Rx Last Taken Unknown] esomeprazole magnesium [Nexium] 20 mg PO BID 10/21/17 [History Last Taken Unknown] insulin degludec [Tresiba Flextouch U-100] 93 unit SQ DAILY 10/21/17 [History Last Taken Unknown] liraglutide [Victoza] 19 mg SQ DAILY 10/21/17 [History Last Taken Unknown] albuterol sulfate [Ventolin HFA] 2 puff INHALATION Q4H PRN PRN #1 device 10/22/21 [Rx Last Taken Unknown] azelastine 2 spray INTRANASAL BID #30 ml 10/22/21 [Rx Last Taken Unknown] prednisone 40 mg PO DAILY 5 Days #10 tab 10/22/21 [Rx Last Taken Unknown] Allergy/AdvReac Type Severity Reaction Status Date / Time Penicillins Allergy Intermediate Rash Verified 10/23/21 18:21 hydrocodone bitartrate Allergy Mild Itching Verified 10/23/21 18:21 [From Vicodin] ciprofloxacin Allergy PT UNABLE Verified 10/23/21 18:21 TO RESPOND-NEEDS F/U Family History Mother Heart disease Hypertension Father Heart disease Hypertension Surgical History Coronary angioplasty status S/P hernia repair Social History household members: spouse Smoking Status: Never smoker Smokeless tobacco user: other alcohol intake: never substance use type: does not use ROS ROS Narrative Admission Review of Systems: CONSTITUTIONAL: No weight loss, + fever, chills, weakness or fatigue. HEENT: + Congestion, rhinorrhea, facial pressure, sore throat. Eyes: No visual loss, blurred vision, double vision or yellow sclerae. Ears, Nose, Throat: No hearing loss. SKIN: No rash or itching, lesions, wounds. CARDIOVASCULAR: No chest pain, chest pressure or chest discomfort, palpitations, edema, orthopnea, syncopal events. RESPIRATORY: + shortness of breath, cough without marked sputum, wheezing, harsh coughing fits. No hemoptysis. GASTROINTESTINAL: + Anorexia, No nausea, vomiting or diarrhea, abdominal pain, melena, BRBPR. GENITOURINARY: No dysuria, frequency, urgency or retention. NEUROLOGICAL: No headache, dizziness, syncope, paralysis, ataxia, numbness or tingling in the extremities, focal weakness, change in bowel or bladder control, seizure. MUSCULOSKELETAL: + muscle, back pain, joint pain or stiffness. HEMATOLOGIC: No anemia, bleeding or bruising. LYMPHATICS: No enlarged nodes. No history of splenectomy. PSYCHIATRIC: No history of depression or anxiety. ENDOCRINOLOGIC: No reports of sweating, cold or heat intolerance. No polyuria or polydipsia. ALLERGIES: No history of asthma, hives, eczema or rhinitis. Vital Signs Vital Signs Vital Signs: 10/23/21 18:18 10/23/21 18:43 Temperature 97.8 F 98.7 F Temperature Source Oral Temporal Pulse Rate 121 H 111 H Respiratory Rate 24 H 20 H Blood Pressure 231/168 H 196/132 H Blood Pressure Mean 189 153 Pulse Ox 97 97 Oxygen Delivery Method Room Air Room Air Weight Weight: 378 lb 3.2 oz Body Mass Index (BMI) 48.5 Physical Exam Narrative Physical Examination: General: Awake, alert, oriented x 3 and cooperative, seated upright in the ED bed, fatigued and ill-appearing Skin: Normal color, normal turgor, no icterus, no cyanosis. HEENT: AT/NC, EOMI, PERRLA, moderately dry MM, posterior OP erythema without exudate, no carotid bruits or JVD noted. Lungs: Diffusely diminished, greater bases, end expiratory wheezing, harsh coughing fits with any increased inspiratory attempts, no current rhonchi, minimal rales BL bases noted. Heart: Mildly tachycardic with regular rhythm; no gallop, rub audible. Abdomen: Soft, morbidly obese, NTTP, no obvious distention but habitus makes examination difficult, distant normal bowel sounds, no obvious HSM however difficult exam secondary to habitus. Extremities: No cyanosis, no clubbing, mild BL distal not marked pitting ankle edema. Neurological: Patient awake, alert, oriented as noted, cognitive function intact; pupils equally reactive to light and accommodation, cranial nerves II-XII grossly normal, moving all 4 extremities, no focal deficits, strength moderately to severely globally creased secondary to acute presentation. Psychiatric: Affect appears fatigued and ill-appearing, no acute evidence of depressive or anxiety feelings. Results Lab / Micro Data Result Diagrams: 10/23/21 18:40 10/23/21 18:40 Labs: Laboratory Results - last 24 hr 10/23/21 18:40: WBC 10.7, RBC 5.52, Hgb 15.0, Hct 43.8, MCV 79.3 L, MCH 27.2, MCHC 34.2, RDW Std Deviation 39.4, RDW Coeff of Madhavi 13.7, Plt Count 225, MPV 10.7, Immature Gran % (Auto) 0.600, Neut % (Auto) 70.8 H, Lymph % (Auto) 13.7 L, [place] % (Auto) 12.0 H, Eos % (Auto) 2.3, Baso % (Auto) 0.6, Absolute Neuts (auto) 7.6, Absolute Lymphs (auto) 1.47, Nucleated RBC % 0 10/23/21 18:40: Sodium 134 L, Potassium 4.0, Chloride 102, Carbon Dioxide 26.0, Anion Gap 6, BUN 23 H, Creatinine 1.47 H, Estim Creat Clear Calc 68.34, Est GFR (MDRD) Af Amer 65, Est GFR (MDRD) Non-Af 53 L, BUN/Creatinine Ratio 15.6, Glucose 317 H, Calcium 9.1, Troponin I High Sens 761 H* Assessment & Plan Assessment/Plan (1) Hypertensive emergency: (2) Congestive heart failure (CHF): QUALIFIERS: Heart failure type: systolic Heart failure chronicity: acute Qualified Code(s): I50.21 - Acute systolic (congestive) heart failure (3) Non-ST elevated myocardial infarction: (4) Viral URI with cough: PLAN: The patient is a 51 y/o M w/ PMHx: GEORGES on CPAP bilevel per records but patient denies ever having it officially set-up at home, CAD s/p PCI circumflex and LAD, GERD, HTN, HLD, Chronic CHF/Ischemic Cardiomyopathy, Hx Lung CA, Gout, Diabetes mellitus type II, Morbid Obesity with recent evaluation [facility] ED on 10/22/21 with history of his entire family recently being ill with influenza A approximately 2 to 3 weeks prior noting that over the last few days he seemed to improve initially however now he has had increased congestion, significant coughing spells without productive sputum with onset of fever and shortness of breath which has progressively been worsening prompting eventual ED evaluation with admitted failure to take his home medications including his hypertensive regimen with discharge on steroids and PRN albuterol however he noted continued fatigue, malaise and severe bouts of coughing prompting ED return for repeat evaluation on 10/23/21. #1. Acute NSTEMI, likely associated with #2, #3, #4, possibly type II with demand: EKG in ED w/ T with no acute evidence of ischemia, CXR w/ with minimal cephalization concerns otherwise with no acute cardiopulmonary findings. Trop elevated, 761. Will admit to ICU, will consult irrigation teacher and body shop estimator given ICU bed placement, maintain on a monitored bed, continue serial cardiac enzymes and EKGs, obtain magnesium level upon admission. Start Heparin drip pending cardiac enzyme trending. We will plan n.p.o. after midnight be cautious. Continue medical management w/ asa, Plavix, BB, statin w/ AM FLP. ASA, NG, morphine. #2. Hypertensive emergency: Initiated on nitroglycerin drip, contributing to #1 and unfortunately complicating presentation as patient did not take his hypertensive regimen for the last 3 days, will resume these medicines, IV Lasix pulse dose now upon presentation as some concern for mild cephalization with resumption of oral Lasix the following day if appropriate, as needed IV hydralazine additionally and wean off nitroglycerin drip as able. #3. Mild Acute on Chronic systolic CHF/ischemic cardiopathy: Most recent echocardiogram noted 09/17/2014 with mild to moderate segmental systolic dysfunction, EF 40%, moderate to severe concentric LVH, mildly enlarged LA, mild MVI, trivial TVI, RVSP 33 mmHg. Will maintain patient on aspirin, Plavix, Coreg, lisinopril, spironolactone, statin therapy. Will maintain on IV lasix pulse dose upon admission and transition to oral following. NG drip ongoing given BP as noted. ECHO requested. #4. Suspected Recent Acute Viral Syndrome, likely influenza A given family was all ill and tested with Acute Bronchospasms: Will maintain on oxygen with wean as tolerated to room air, continue ATC duonebs, PRN albuterol, maintain on IV solumedrol, HOB, IS parameters w/ pending sputum cultures, obtain full respiratory viral panel and urine antigens to be cautious. #5. CAD: Status post PCI circumflex and LAD, history GA, will continue patient aspirin, Plavix, Coreg, lisinopril, statin therapy. #6. Diabetes mellitus type II: Hold oral home regimen, continue home insulin regimen, ADA diet until midnight, accu checks w/ ISS. #7. Hyperlipidemia: Continue home statin regimen. FLP in AM. #8. Morbid Obesity: Weight loss and lifestyle changes encouraged. #9. Gout: We will continue patient home allopurinol regimen. #10. GERD: We will continue patient on PPI. #11. GEORGES: CPAP nightly will be initiated #12. DVT prophylaxis: SCDs, heparin drip. Charges/Coding Visit Charges Inpatient E&M: 65705 Init Hosp L3
[2021-10-23] MEDS: Aspirin 81 MG TAB.CHEW 324 MG PO (20:07)
[2021-10-23] MEDS: Nitroglycerin Infusion 250 ML 3 MG CONT INF (20:08)
[2021-10-23 21:20] LABS: Color, Urine Yellow (Yellow); Glucose, Dipstick 1000 mg/dl (Normal); Ketone-Dipstick 5 mg/dl (Negative); Leukocyte Esterase-Dipstick Negative /ul (Negative); Nitrite-Dipstick Negative (Negative); Occult Blood-Urine 50 /ul (Negative); Protein-Dipstick 100 mg/dl (Negative); Urine Bilirubin Dipstick Negative (Negative); Urine Clarity Clear (Clear); Urine Urobilinogen Normal (Normal)
--- NOTE | 2021-10-23 21:20 | ECHOCS_ITS ---
Reason For Study: NSTEMI Procedure This was a 2D Doppler, Color Flow transthoracic echocardiogram. The study was technically difficult. Exam performed portable in ICU/CCU. Left Ventricle Severe eccentric left ventricular hypertrophy. The estimated ejection fraction is 50 %. Right Ventricle Mildly dilated right ventricle. Normal systolic function. Atria The left atrium is mildly enlarged. Normal right atrium. Mitral Valve The mitral valve is structurally normal. No prolapse or stenosis seen. Mild (1+) mitral valve insufficiency. Tricuspid Valve Normal tricuspid valve. Trivial tricuspid valve insufficiency. Aortic Valve Normal aortic valve. Pulmonic Valve The pulmonic valve is not well visualized. Great Vessels Normal aortic root. Pericardium/Pleural No pericardial effusion. Medication Diluted definity 3ml given slow IV push to enhance endocardial definition. MMode/2D Measurements & Calculations LVIDd: 5.7 cm IVSd: 1.4 cm Ao root diam: 3.1 cm LVIDs: 4.2 cm LVPWd: 1.2 cm RVDd: 4.1 cm FS: 26.9 % LAV(MOD-bp): 95.4 ml LVAd ap4: 44.4 cm2 SV(MOD-sp4): 74.0 ml LAV(MOD-bp) Indexed: 33.5 ml/m2 LVLd ap4: 9.8 cm LAV(MOD-sp2): 90.3 ml EDV(MOD-sp4): 162.5 ml LAV(MOD-sp4): 91.3 ml EDV(sp4-el): 171.5 ml LVAs ap4: 29.0 cm2 LVLs ap4: 7.7 cm ESV(MOD-sp4): 88.5 ml ESV(sp4-el): 92.2 ml EF(MOD-sp4): 45.5 % EF(sp4-el): 46.2 % SV(sp4-el): 79.2 ml LA A4 area: 28.0 cm2 LA dimension(2D): 3.9 cm RA A4 area: 23.1 cm2 Time Measurements MV dec time: 0.18 sec Doppler Measurements & Calculations MV E max sage: 80.8 cm/sec Lat Peak E' Sage: 3.4 cm/sec Med Peak E' Sage: 5.9 cm/sec MV A max sage: 110.9 cm/sec E/E' lat: 23.6 E/E' med: 13.7 MV E/A: 0.73 Ao V2 max: 160.9 cm/sec LV V1 max: 123.0 cm/sec PA V2 max: 128.2 cm/sec Ao max P.4 mmHg LV V1 max P.1 mmHg TR max sage: 243.1 cm/sec TR max P.6 mmHg ECHO/Echo Complete W/ Contrast Interpretation Summary The estimated ejection fraction is 50 %. Grade #1 Diastolic Dysfunction RV systolic pressure estimated 30 mmhg No significant changes from prior echo Ordering Physician: Jewels Combs Referring Physician: DELLA MONREAL Performed By: Amy Nichols RDCS
--- NOTE | 2021-10-23 21:20 | EKG12_ITS ---
Test Reason : AM EKG Blood Pressure : / mmHG Vent. Rate : 081 BPM Atrial Rate : 081 BPM P-R Int : 210 ms QRS Dur : 096 ms QT Int : 398 ms P-R-T Axes : 058 017 102 degrees QTc Int : 462 ms Sinus rhythm with 1st degree A-V block with Premature atrial complexes Low voltage QRS Nonspecific T wave abnormality Prolonged QT Abnormal ECG When compared with ECG of 23-OCT-2021 18:43, MANUAL COMPARISON REQUIRED, DATA IS UNCONFIRMED Confirmed by CYN ARIZMENDI, MOHINI ([id number]), editor trade journal KALLI GUAJARDO ([id number]) on 10/31/2021 1:31:46 PM Referred By: IRINEO Confirmed By:AMA ADDISON MD
[2021-10-23 21:36] LABS: BNP,B-Type NATRIURETIC PEPTIDE 56.2 pg/mL (0-100)
[2021-10-23 21:42] LABS: AST(SGOT) 48 U/L (15-37); Alanine Aminotransfer ALT/SGPT 52 U/L (16-61); Albumin, Serum 3.6 g/dL (3.2-5.0); Alkaline Phosphatase 106 U/L (45-117); Globulin 4.4 g/dL (2.2-4.2); Magnesium 1.8 mg/dL (1.6-2.6)
[2021-10-23] MEDS: Pantoprazole Sodium 20 MG Tablet PO (21:44)
[2021-10-23] MEDS: Lisinopril 20 MG Tablet PO (21:44)
[2021-10-23] MEDS: Spironolactone 25 MG Tablet PO (21:44)
[2021-10-23] MEDS: Nitroglycerin Infusion 250 ML 3 MG IV (21:46)
[2021-10-23] MEDS: Carvedilol 25 MG Tablet PO (21:51)
[2021-10-23] MEDS: oxyCODONE 5 MG Tablet 7.5 MG PO (21:51)
[2021-10-23] MEDS: Furosemide 40 MG/4 ML Vial IV (21:52)
[2021-10-23 21:54] LABS: Partial Thromboplast Time 32.4 Seconds (24.1-36.2)
[2021-10-23] MEDS: guaiFENesin/Codeine 5 ML UDC PO (22:08)
[2021-10-23] MEDS: Insulin Lispro 100 UNIT/ML INSULN.PEN SC (22:08)
[2021-10-23] MEDS: Heparin Injection (Vial) 5,000 UNIT/ML VIAL 14000 UNIT IV (22:14)
[2021-10-23 22:21] LABS: Procalcitonin 0.31 ng/mL (0.00-0.09)
[2021-10-23 22:30] LABS: Bedside Glucose 312 mg/dL (74-106)
--- NOTE | 2021-10-23 23:29 | PCM.CONS.C ---
Assessment & Plan Assessment/Plan (1) Hypertensive emergency: (2) Congestive heart failure (CHF): QUALIFIERS: Heart failure type: systolic Heart failure chronicity: acute Qualified Code(s): I50.21 - Acute systolic (congestive) heart failure (3) S/P PTCA (percutaneous transluminal coronary angioplasty): (4) Obesity: (5) Troponin I above reference range: (6) Non-ST elevated myocardial infarction: PLAN: 52-year-old patient with history of CAD, cardiomyopathy with congestive heart failure Presented with symptoms of fatigue, severe coughing No symptoms of chest pain. This patient had history of CAD with prior PCI and stent of LAD and the left circumflex artery Nonischemic cardiomyopathy and history of lung cancer diabetes mellitus morbid obesity. Hypertensive urgency, he had progressive symptoms of cough shortness of breath and family had history of influenza A. And his chest x-ray showed evidence of congestive heart failure. He had persistently elevated high sensitive troponin from prior evaluation Cardiac care plan recommendations; Discontinue the nitroglycerin as she had mild lightheadedness and dizziness he has no active symptoms of chest pain Elevated cardiac biomarker high sensitive troponin secondary to type II NM with demand myocardial ischemia congestive heart failure with acute on chronic systolic heart failure. Agree to continue the current treatment with the aspirin Plavix, carvedilol, statin, lisinopril. Other medical problems with diabetes mellitus, hypertension, hyperlipidemia, morbid obesity and obstructive sleep apnea Patient has been on treatment with IV Solu-Medrol and albuterol as needed and awaiting respiratory viral panel result We will repeat echocardiogram and will have a series of high sensitive troponin We will discuss further plan based on his clinical progression during this admission. HPI Consult Data Date of Consult: 10/23/21 HPI Narrative Reason for Consultation: CAD/CHF HPI Narrative: STAN CABRERA, is a 51 M who presents [facility] Medical History CAD (coronary artery disease) Cardiomyopathy Congestive heart failure (CHF) Diabetes HLD (hyperlipidemia) Hypertension Morbid obesity with BMI of 40.0-44.9, adult [place] (obstructive sleep apnea) Systolic CHF, chronic Home Medications amlodipine 10 mg PO DAILY 12/01/14 [History Last Taken 10/20/15] aspirin 81 mg PO DAILY 12/01/14 [History Last Taken 10/20/15] clopidogrel 75 mg PO DAILY 12/01/14 [History Last Taken 10/20/15] furosemide 40 mg PO DAILY 12/01/14 [History Last Taken 10/20/15] lisinopril 20 mg PO BID 12/01/14 [History Last Taken 10/20/15] spironolactone 25 mg PO BID 12/01/14 [History Last Taken 10/20/15] allopurinol 400 mg PO DAILYCM 05/24/15 [History Last Taken 10/20/15] Tradjenta 5 mg PO DAILY 10/20/15 [History Last Taken 10/20/15] oxycodone 7.5 mg PO 4X/DAY 10/20/15 [History Last Taken 10/20/15] carvedilol 25 mg PO BID #60 tablet 10/21/15 [Rx Last Taken Unknown] albuterol sulfate 1 - 2 puff INHALATION Q4H PRN PRN #1 inhaler 10/21/17 [Rx Last Taken Unknown] benzonatate 200 mg PO TID PRN PRN #20 cap 10/21/17 [Rx Last Taken Unknown] esomeprazole magnesium [Nexium] 20 mg PO BID 10/21/17 [History Last Taken Unknown] insulin degludec [Tresiba Flextouch U-100] 93 unit SQ DAILY 10/21/17 [History Last Taken Unknown] liraglutide [Victoza] 19 mg SQ DAILY 10/21/17 [History Last Taken Unknown] albuterol sulfate [Ventolin HFA] 2 puff INHALATION Q4H PRN PRN #1 device 10/22/21 [Rx Last Taken Unknown] azelastine 2 spray INTRANASAL BID #30 ml 10/22/21 [Rx Last Taken Unknown] prednisone 40 mg PO DAILY 5 Days #10 tab 10/22/21 [Rx Last Taken Unknown] Allergy/AdvReac Type Severity Reaction Status Date / Time Penicillins Allergy Intermediate Rash Verified 10/23/21 18:21 hydrocodone bitartrate Allergy Mild Itching Verified 10/23/21 18:21 [From Vicodin] ciprofloxacin Allergy PT UNABLE Verified 10/23/21 18:21 TO RESPOND-NEEDS F/U Family History Mother Heart disease Hypertension Father Heart disease Hypertension Surgical History Coronary angioplasty status S/P hernia repair Social History household members: spouse Smoking Status: Never smoker Smokeless tobacco user: other alcohol intake: never substance use type: does not use Physical Exam Narrative Patient seen and evaluated at bedside along with the nursing staff Has symptoms of dizziness lightheadedness with shortness of breath Cardiovascular examination; Cardiac telemetry showed underlying normal sinus, S1-S2 is normal, no systolic or diastolic murmur Chest examination mildly diminished air entry bilateral with minimal basilar rales Examination lower extremity no clubbing no cyanosis no extremity edema Risk Stratification Risk Stratification Applicable: Yes Age >/= 65: No >/= 3 CAD Risk Factors (HTN, HLD, DM, family hx of CAD, or current smoker): Yes Aspirin Use in the Past 7 Days: Yes Severe Angina (>/= episodes in 24 hours): No EKG ST Changes >/= 0.5mm: No Positive Cardiac Marker: Yes KEVYN Risk Stratification Score: 3 KEVYN % Risk: 13% Risk Objective Data Vital Signs: Vital Signs Temp Pulse Resp BP Pulse Ox 98.8 F 116 H 20 H 158/73 H 97 10/23/21 20:00 10/23/21 21:46 10/23/21 20:00 10/23/21 21:46 10/23/21 20:00 Oxygen Delivery Method Room Air Weight: 377 lb 3.375 oz Body Mass Index (BMI) 48.4 Intake & Output: Intake and Output for Last 24 Hours 10/21/21 10/22/21 10/23/21 23:59 23:59 23:59 Intake Total 7.35 / 7.35 Balance 7.35 / 7.35 Lab / Micro Data Result Diagrams: 10/23/21 18:40 10/23/21 18:40 Labs: Laboratory Results - last 24 hr 10/23/21 18:40: WBC 10.7, RBC 5.52, Hgb 15.0, Hct 43.8, MCV 79.3 L, MCH 27.2, MCHC 34.2, RDW Std Deviation 39.4, RDW Coeff of Madhavi 13.7, Plt Count 225, MPV 10.7, Immature Gran % (Auto) 0.600, Neut % (Auto) 70.8 H, Lymph % (Auto) 13.7 L, [place] % (Auto) 12.0 H, Eos % (Auto) 2.3, Baso % (Auto) 0.6, Absolute Neuts (auto) 7.6, Absolute Lymphs (auto) 1.47, Nucleated RBC % 0 10/23/21 18:40: Sodium 134 L, Potassium 4.0, Chloride 102, Carbon Dioxide 26.0, Anion Gap 6, BUN 23 H, Creatinine 1.47 H, Estim Creat Clear Calc 68.34, Est GFR (MDRD) Af Amer 65, Est GFR (MDRD) Non-Af 53 L, BUN/Creatinine Ratio 15.6, Glucose 317 H, Calcium 9.1, Troponin I High Sens 761 H* 10/23/21 18:40: B-Natriuretic Peptide 56.2 10/23/21 18:40: Magnesium 1.8, Total Bilirubin 0.30, Direct Bilirubin 0.10, AST 48 H, ALT 52, Alkaline Phosphatase 106, Total Protein 8.0, Albumin 3.6, Globulin 4.4 H 10/23/21 20:58: Urine Color Yellow, Urine Clarity Clear, Urine pH 5.0, Ur Specific [place] 1.020, Urine Protein 100 H, Urine Glucose (UA) 1000 H, Urine Ketones 5 H, Urine Occult Blood 50 H, Urine Nitrite Negative, Urine Bilirubin Negative, Urine Urobilinogen Normal, Ur Leukocyte Esterase Negative 10/23/21 21:36: PT 13.0, INR 1.0, APTT 32.4 10/23/21 21:36: Procalcitonin 0.31 H 10/23/21 22:06: POC Glucose 312 H Micro: Microbiology 10/23/21 20:58 Urine, Clean Catch Legionella Antigen - Final 10/23/21 20:58 Urine, Clean Catch Streptococcus pneumoniae Antigen (M - Final Cardiology Labs/Tests 10/23/21 18:40: WBC 10.7, RBC 5.52, Hgb 15.0, Hct 43.8, MCV 79.3 L, MCH 27.2, MCHC 34.2, Plt Count 225, MPV 10.7, Immature Gran % (Auto) 0.600, Neut % (Auto) 70.8 H, Lymph % (Auto) 13.7 L, [place] % (Auto) 12.0 H, Eos % (Auto) 2.3, Baso % (Auto) 0.6, Absolute Neuts (auto) 7.6, Nucleated RBC % 0 10/23/21 18:40: Sodium 134 L, Potassium 4.0, Chloride 102, Carbon Dioxide 26.0, Anion Gap 6, BUN 23 H, Creatinine 1.47 H, Est GFR (MDRD) Af Amer 65, Est GFR (MDRD) Non-Af 53 L, BUN/Creatinine Ratio 15.6, Glucose 317 H, Calcium 9.1 10/23/21 18:40: B-Natriuretic Peptide 56.2 10/23/21 18:40: Magnesium 1.8, Total Bilirubin 0.30, Direct Bilirubin 0.10 10/23/21 20:58: Urine Color Yellow, Urine Clarity Clear, Urine pH 5.0, Ur Specific [place] 1.020, Urine Protein 100 H, Urine Glucose (UA) 1000 H, Urine Ketones 5 H, Urine Occult Blood 50 H, Urine Nitrite Negative, Urine Bilirubin Negative, Urine Urobilinogen Normal, Ur Leukocyte Esterase Negative 10/23/21 21:36: PT 13.0, INR 1.0, APTT 32.4 Rhythm: Normal sinus rhythm EKG: First-degree AV block with PACs and sinus tachycardia Radiography Diagnostic Testing: Radiology Impression Chest X-Ray 10/23/21 19:03 IMPRESSION: There are no acute findings. Electronically Signed: Ricardo Trevino MD at 19:38 EDT Reading Location ID and State: Formerly named [facility] / [place] , Service support ,
[2021-10-23 23:38] LABS: Troponin-I HS 770 pg/mL (3.0-78.0)
[2021-10-24] VITALS (26 sets, daily range): BP systolic 109–172; BP diastolic 61–135; PULSE 77–102; RESP 15–26; TEMP 36.4–37.2; O2SAT 90–98
[2021-10-24 01:17] LABS: Troponin-I HS 777 pg/mL (3.0-78.0)
[2021-10-24 02:05] LABS: M R Staph aureus DNA By PCR Negative (Negative); Probe Check PASS; Specimen Processing Control PASS
[2021-10-24] MEDS: guaiFENesin/Codeine 5 ML UDC PO ×3 (04:17→17:40)
[2021-10-24 04:19] LABS: Absolute Lymphocyte Count 0.99 X10^3/uL (0.83-4.51); Absolute Neutrophil Count 7.9 X10^3/uL (2.0-7.7); Basophil# 0.03 X10^3/uL; Basophil% 0.3 % (0-1); Hematocrit 42.4 % (40-54); Hemoglobin 13.8 g/dL (13.0-16.5); Lymphocyte # 0.99 X10^3/ul (0.83-4.51); Lymphocyte % 10.2 % (19-41); Mean Corp Hgb Conc 32.5 g/dL (32-36); Mean Corpuscular Hgb 26.4 pg (27.0-32.0); Mean Corpuscular Volume 81.2 fL (80-94); Mean Platelet Vol. 11.1 fl (6.2-12.0); Monocyte# 0.64 X10^3/uL; Monocyte% 6.6 % (0-10); NRBC Flagged by Analyzer 0 % (0-5); Neutrophil # 7.94 X10^3/uL (2.7-7.7); Neutrophil % 82.2 % (47-70); Platelet Count 232 K/mm3 (150-450); RBC Distribution Width CV 13.8 % (11.6-14.6); RBC Distribution Width SD 40.4 fl (35.1-43.9); Red Blood Count 5.22 M/mm3 (4.6-6.2); White Blood Count 9.7 K/mm3 (4.4-11.0)
[2021-10-24 05:09] LABS: ALB/GLOB Ratio 0.8 RATIO (0.9-2.4); AST(SGOT) 39 U/L (15-37); Alanine Aminotransfer ALT/SGPT 48 U/L (16-61); Albumin, Serum 3.4 g/dL (3.2-5.0); Alkaline Phosphatase 96 U/L (45-117); Anion Gap 6 (5-15); BUN 26 mg/dL (7-18); BUN/Creat Ratio 16.5 RATIO (10-20); Calcium,Total 8.5 mg/dL (8.5-10.1); Chloride 98 mmol/L (98-107); Cholesterol 173 mg/dL (200); Creatinine, Serum 1.58 mg/dL (0.70-1.30); EST Glomerular Filtration Rate 49 mL/min (>60); Est Glom Filt Rate - Afr Amer 60 mL/min (>60); Estimated Creatinine Clearance 63.59 ml/min; Globulin 4.2 g/dL (2.2-4.2); Glucose 454 mg/dL (74-106); High Density Lipoprotein 42 mg/dL; Potassium 4.7 mmol/L (3.5-5.1); Protein, Total 7.6 g/dL (6.4-8.2); Sodium Level 130 mmol/L (136-145); Triglycerides 131 mg/dL; Very Low Density Lipoprotein 26 mg/dL (5-40)
--- NOTE | 2021-10-24 06:16 | EX.PCM.CONCC ---
Assessment & Plan Assessment/Plan (1) Viral URI with cough: (2) Non-ST elevated myocardial infarction: PLAN: RECOMMENDATIONS: 1. Continue home antihypertensive regimen. 2. Continue supportive care for viral URI with bronchodilators and steroids. 3. Continue as needed cough suppressant. 4. Await results of echocardiogram. 5. Encourage incentive spirometer use and mobilize patient as tolerated. 6. The patient is medically stable for transfer out of the intensive care unit. IMPRESSIONS: 1. Shortness of breath and cough secondary to human metapneumovirus upper respiratory infection The patient is currently maintaining appropriate oxygen saturations on room air. Plan to continue current supportive measures including bronchodilators and steroids. Encourage incentive spirometer use and mobilize patient as tolerated. Continue as needed cough suppressant. 2. Hypertensive urgency Secondary to noncompliance with outpatient medication regimen. The patient has been weaned from the nitro glycerin infusion. He will be restarted on his home antihypertensive regimen and monitored clinically. 3. Non-ST segment elevation [place] to be secondary to demand ischemia in the setting of numbers 1 and 2. Cardiology is currently following with plans to complete an echocardiogram today. 4. History of systolic CHF/ischemic cardiomyopathy/diabetes mellitus/morbid obesity/[place]ES with PAP noncompliance Complicates care, management, recovery and prognosis. Continue home medications as indicated. Nocturnal Pap therapy can be offered to the patient while admitted to the hospital. This note was generated with [employer] dictation software. It may contain incorrect words, spelling, and punctuation that were not noted in checking the note before signing. HPI Consult Data Date of Consult: 10/24/21 HPI Narrative Reason for Consultation: NSTEMI/hypertensive urgency/CHF HPI Narrative: The patient is a 51-year-old male, with a history as outlined below, who presented to the emergency department on October 23 with upper respiratory symptoms and shortness of breath. The patient had been evaluated in the emergency department the day prior with similar complaints. At that time swabs for Covid and influenza were negative. Chest x-ray was unremarkable. The patient was treated with aerosolized bronchodilators and steroids. He was subsequently discharged home with new prescriptions for prednisone, azelastine and albuterol. The patient has a known history of coronary artery disease status post angioplasty, along with hypertension, morbid obesity and obstructive sleep apnea. On presentation to the emergency department, the patient was noted to be afebrile but was hypertensive with a blood pressure of 196/132 mmHg. Initial laboratory evaluation revealed no evidence of a leukocytosis. Chemistry profile was notable for a creatinine of 1.47. Troponin was elevated at 761. BNP was unremarkable. Urinalysis was unrevealing. Plain film chest x-ray was again unremarkable. The patient was started on a nitroglycerin infusion due to his elevated blood pressures. A heparin infusion was also initiated along with bronchodilators, IV steroids and diuretics. The patient was subsequently admitted to the medical intensive care unit for further management. Overnight, the patient has remained clinically stable. He has been weaned off of the nitroglycerin infusion completely. The patient did complete a diagnostic polysomnogram in December 2015 which revealed an overall AHI of 36 events per hour. A follow-up titration study in March 2016 demonstrated the need for nocturnal bilevel support with a pressure setting of 22/18 centimeters of water. However, the patient is noncompliant with the use of nocturnal Pap therapy. [facility] Medical History CAD (coronary artery disease) Cardiomyopathy Congestive heart failure (CHF) Diabetes HLD (hyperlipidemia) Hypertension Morbid obesity with BMI of 40.0-44.9, adult [place]ES (obstructive sleep apnea) Systolic CHF, chronic Home Medications amlodipine 10 mg PO DAILY 12/01/14 [History Last Taken 10/20/15] aspirin 81 mg PO DAILY 12/01/14 [History Last Taken 10/20/15] clopidogrel 75 mg PO DAILY 12/01/14 [History Last Taken 10/20/15] furosemide 40 mg PO DAILY 12/01/14 [History Last Taken 10/20/15] lisinopril 20 mg PO BID 12/01/14 [History Last Taken 10/20/15] spironolactone 25 mg PO BID 12/01/14 [History Last Taken 10/20/15] allopurinol 400 mg PO DAILYCM 05/24/15 [History Last Taken 10/20/15] Tradjenta 5 mg PO DAILY 10/20/15 [History Last Taken 10/20/15] oxycodone 7.5 mg PO 4X/DAY 10/20/15 [History Last Taken 10/20/15] carvedilol 25 mg PO BID #60 tablet 10/21/15 [Rx Last Taken Unknown] albuterol sulfate 1 - 2 puff INHALATION Q4H PRN PRN #1 inhaler 10/21/17 [Rx Last Taken Unknown] benzonatate 200 mg PO TID PRN PRN #20 cap 10/21/17 [Rx Last Taken Unknown] esomeprazole magnesium [Nexium] 20 mg PO BID 10/21/17 [History Last Taken Unknown] insulin degludec [Tresiba Flextouch U-100] 93 unit SQ DAILY 10/21/17 [History Last Taken Unknown] liraglutide [Victoza] 19 mg SQ DAILY 10/21/17 [History Last Taken Unknown] albuterol sulfate [Ventolin HFA] 2 puff INHALATION Q4H PRN PRN #1 device 10/22/21 [Rx Last Taken Unknown] azelastine 2 spray INTRANASAL BID #30 ml 10/22/21 [Rx Last Taken Unknown] prednisone 40 mg PO DAILY 5 Days #10 tab 10/22/21 [Rx Last Taken Unknown] Allergy/AdvReac Type Severity Reaction Status Date / Time Penicillins Allergy Intermediate Rash Verified 10/23/21 18:21 hydrocodone bitartrate Allergy Mild Itching Verified 10/23/21 18:21 [From Vicodin] ciprofloxacin Allergy PT UNABLE Verified 10/23/21 18:21 TO RESPOND-NEEDS F/U Family History Mother Heart disease Hypertension Father Heart disease Hypertension Surgical History Coronary angioplasty status S/P hernia repair Social History household members: spouse Smoking Status: Never smoker Smokeless tobacco user: other alcohol intake: never substance use type: does not use ROS Constitutional Constitutional: Reports fever(s) and malaise Eyes Eyes: Denies blurry vision or change in vision ENT HEENT: Reports nasal congestion; Denies dizziness, dysphagia or epistaxis Cardiovascular Cardiovascular: Reports dyspnea Respiratory/Chest Respiratory/Chest: Reports cough and dyspnea Gastrointestinal Gastrointestinal: Denies abdominal pain, diarrhea, nausea or vomiting Genitourinary Genitourinary: Denies difficulty urinating Musculoskeletal Musculoskeletal: Denies arthralgias, back pain or joint pain Integumentary Integumentary: Denies lesions, rash or skin ulcer Neurologic Neurologic: Denies abnormal gait or abnormal speech Psychiatric Psychiatric: Denies anxiety or depression Endocrine Endocrinology: Reports fatigue Hematologic/Lymphatic Hematologic/Lymphatic: Denies easy bleeding or easy bruising Physical Exam Const alert and no apparent distress General Appearance: cooperative Nutritional Appearance: morbidly obese HEENT normocephalic and head/scalp atraumatic Eyes PERRL, EOMs intact bilaterally and conjunctivae normal Neck supple General: trachea midline Chest inspection of chest normal Resp Resp Narrative: Frequent paroxysms of coughing Auscultation: diminished lung sounds Cardio regular rate and regular rhythm GI normal to inspection, nondistended, normoactive bowel sounds Extremity no clubbing, cyanosis or edema Skin no rashes or lesions noted Neuro CN's II-XII intact bilaterally, moves all extremities and no focal motor deficits Psych cooperative and affect normal Lab / Micro Data Result Diagrams: 10/24/21 04:12 10/24/21 04:12 Labs: Laboratory Results - last 24 hr 10/23/21 18:40: WBC 10.7, RBC 5.52, Hgb 15.0, Hct 43.8, MCV 79.3 L, MCH 27.2, MCHC 34.2, RDW Std Deviation 39.4, RDW Coeff of Madhavi 13.7, Plt Count 225, MPV 10.7, Immature Gran % (Auto) 0.600, Neut % (Auto) 70.8 H, Lymph % (Auto) 13.7 L, [place] % (Auto) 12.0 H, Eos % (Auto) 2.3, Baso % (Auto) 0.6, Absolute Neuts (auto) 7.6, Absolute Lymphs (auto) 1.47, Nucleated RBC % 0 10/23/21 18:40: Sodium 134 L, Potassium 4.0, Chloride 102, Carbon Dioxide 26.0, Anion Gap 6, BUN 23 H, Creatinine 1.47 H, Estim Creat Clear Calc 68.34, Est GFR (MDRD) Af Amer 65, Est GFR (MDRD) Non-Af 53 L, BUN/Creatinine Ratio 15.6, Glucose 317 H, Calcium 9.1, Troponin I High Sens 761 H* 10/23/21 18:40: B-Natriuretic Peptide 56.2 10/23/21 18:40: Magnesium 1.8, Total Bilirubin 0.30, Direct Bilirubin 0.10, AST 48 H, ALT 52, Alkaline Phosphatase 106, Total Protein 8.0, Albumin 3.6, Globulin 4.4 H 10/23/21 20:58: Urine Color Yellow, Urine Clarity Clear, Urine pH 5.0, Ur Specific [place] 1.020, Urine Protein 100 H, Urine Glucose (UA) 1000 H, Urine Ketones 5 H, Urine Occult Blood 50 H, Urine Nitrite Negative, Urine Bilirubin Negative, Urine Urobilinogen Normal, Ur Leukocyte Esterase Negative 10/23/21 21:36: PT 13.0, INR 1.0, APTT 32.4 10/23/21 21:36: Procalcitonin 0.31 H 10/23/21 21:40: MRSA (PCR) Negative 10/23/21 21:40: Troponin I High Sens 770 H* 10/23/21 22:06: POC Glucose 312 H 10/24/21 00:35: Troponin I High Sens 777 H* 10/24/21 04:12: WBC 9.7, RBC 5.22, Hgb 13.8, Hct 42.4, MCV 81.2, MCH 26.4 L, MCHC 32.5, RDW Std Deviation 40.4, RDW Coeff of Madhavi 13.8, Plt Count 232, MPV 11.1, Immature Gran % (Auto) 0.700, Neut % (Auto) 82.2 H, Lymph % (Auto) 10.2 L, [place] % (Auto) 6.6, Eos % (Auto) 0.0, Baso % (Auto) 0.3, Absolute Neuts (auto) 7.9 H, Absolute Lymphs (auto) 0.99, Nucleated RBC % 0 10/24/21 04:12: Sodium 130 L, Potassium 4.7, Chloride 98, Carbon Dioxide 26.0, Anion Gap 6, BUN 26 H, Creatinine 1.58 H, Estim Creat Clear Calc 63.59, Est GFR (MDRD) Af Amer 60, Est GFR (MDRD) Non-Af 49 L, BUN/Creatinine Ratio 16.5, Glucose 454 H*, Calcium 8.5, Total Bilirubin 0.50, AST 39 H, ALT 48, Alkaline Phosphatase 96, Total Protein 7.6, Albumin 3.4, Globulin 4.2, Albumin/Globulin Ratio 0.8 L, Triglycerides 131, Cholesterol 173, LDL Cholesterol 105, VLDL Cholesterol 26, HDL Cholesterol 42 10/24/21 04:12: APTT 190.0 H* Micro: Microbiology 10/23/21 22:55 Mucosa - Nasopharyngeal Respiratory Panel (PCR) - Final Human [place] 10/23/21 20:58 Urine, Clean Catch Legionella Antigen - Final 10/23/21 20:58 Urine, Clean Catch Streptococcus pneumoniae Antigen (M - Final Radiology Impression Chest X-Ray 10/23/21 19:03 IMPRESSION: There are no acute findings. Electronically Signed: Ricardo Trevino MD at 19:38 EDT Reading Location ID and State: [facility] / [place] , Service support , Charges/Coding Visit Charges Inpatient E&M: 31113 Init Hosp L3
[2021-10-24] MEDS: Ipratropium/Albuterol Sulfate 3 ML AMPUL.NEB INHALATION ×4 (06:36→19:06)
--- NOTE | 2021-10-24 07:53 | PCM.PN.HOSP ---
Subjective Subjective Follow-up for non-STEMI and hypertensive emergency. Patient stated he got short of breath 2 days prior to admission. His all other family members except him had influenza recently and he also had URI symptoms of snuffles and it took a lot of cold medications [id number] including Robitussin, NyQuil day, Tylenol and night and other medications after he was out in the rain. Denies chest pain/pressure The patient is off nitroglycerin drip. Objective Data Objective Data Vital Signs: Vital Signs Temp Pulse Resp BP Pulse Ox 97.5 F L 95 20 H 158/122 H 95 10/24/21 00:00 10/24/21 07:04 10/24/21 07:00 10/24/21 07:00 10/24/21 07:00 Oxygen Delivery Method Room Air Weight: 362 lb 10.566 oz Body Mass Index (BMI) 48.4 Intake & Output: Intake and Output for Last 24 Hours 10/22/21 10/23/21 10/24/21 23:59 23:59 23:59 Intake Total 10.30 / 950.30 1073 / 1073 Output Total 2600 / 2600 Balance 10.30 / 50.30 -1527 / -1527 Lab / Micro Data Result Diagrams: 10/24/21 04:12 10/24/21 04:12 Labs: Laboratory Results - last 24 hr 10/23/21 18:40: WBC 10.7, RBC 5.52, Hgb 15.0, Hct 43.8, MCV 79.3 L, MCH 27.2, MCHC 34.2, RDW Std Deviation 39.4, RDW Coeff of Madhavi 13.7, Plt Count 225, MPV 10.7, Immature Gran % (Auto) 0.600, Neut % (Auto) 70.8 H, Lymph % (Auto) 13.7 L, G[place] % (Auto) 12.0 H, Eos % (Auto) 2.3, Baso % (Auto) 0.6, Absolute Neuts (auto) 7.6, Absolute Lymphs (auto) 1.47, Nucleated RBC % 0 10/23/21 18:40: Sodium 134 L, Potassium 4.0, Chloride 102, Carbon Dioxide 26.0, Anion Gap 6, BUN 23 H, Creatinine 1.47 H, Estim Creat Clear Calc 68.34, Est GFR (MDRD) Af Amer 65, Est GFR (MDRD) Non-Af 53 L, BUN/Creatinine Ratio 15.6, Glucose 317 H, Calcium 9.1, Troponin I High Sens 761 H* 10/23/21 18:40: B-Natriuretic Peptide 56.2 10/23/21 18:40: Magnesium 1.8, Total Bilirubin 0.30, Direct Bilirubin 0.10, AST 48 H, ALT 52, Alkaline Phosphatase 106, Total Protein 8.0, Albumin 3.6, Globulin 4.4 H 10/23/21 20:58: Urine Color Yellow, Urine Clarity Clear, Urine pH 5.0, Ur Specific [place] 1.020, Urine Protein 100 H, Urine Glucose (UA) 1000 H, Urine Ketones 5 H, Urine Occult Blood 50 H, Urine Nitrite Negative, Urine Bilirubin Negative, Urine Urobilinogen Normal, Ur Leukocyte Esterase Negative 10/23/21 21:36: PT 13.0, INR 1.0, APTT 32.4 10/23/21 21:36: Procalcitonin 0.31 H 10/23/21 21:40: MRSA (PCR) Negative 10/23/21 21:40: Troponin I High Sens 770 H* 10/23/21 22:06: POC Glucose 312 H 10/24/21 00:35: Troponin I High Sens 777 H* 10/24/21 04:12: WBC 9.7, RBC 5.22, Hgb 13.8, Hct 42.4, MCV 81.2, MCH 26.4 L, MCHC 32.5, RDW Std Deviation 40.4, RDW Coeff of Madhavi 13.8, Plt Count 232, MPV 11.1, Immature Gran % (Auto) 0.700, Neut % (Auto) 82.2 H, Lymph % (Auto) 10.2 L, [place] % (Auto) 6.6, Eos % (Auto) 0.0, Baso % (Auto) 0.3, Absolute Neuts (auto) 7.9 H, Absolute Lymphs (auto) 0.99, Nucleated RBC % 0 10/24/21 04:12: Sodium 130 L, Potassium 4.7, Chloride 98, Carbon Dioxide 26.0, Anion Gap 6, BUN 26 H, Creatinine 1.58 H, Estim Creat Clear Calc 63.59, Est GFR (MDRD) Af Amer 60, Est GFR (MDRD) Non-Af 49 L, BUN/Creatinine Ratio 16.5, Glucose 454 H*, Calcium 8.5, Total Bilirubin 0.50, AST 39 H, ALT 48, Alkaline Phosphatase 96, Total Protein 7.6, Albumin 3.4, Globulin 4.2, Albumin/Globulin Ratio 0.8 L, Triglycerides 131, Cholesterol 173, LDL Cholesterol 105, VLDL Cholesterol 26, HDL Cholesterol 42 10/24/21 04:12: APTT 190.0 H* Micro: Microbiology 10/23/21 22:55 Mucosa - Nasopharyngeal Respiratory Panel (PCR) - Final Human [place] 10/23/21 20:58 Urine, Clean Catch Legionella Antigen - Final 10/23/21 20:58 Urine, Clean Catch Streptococcus pneumoniae Antigen (M - Final Radiography Diagnostic Testing: Radiology Impression Chest X-Ray 10/23/21 19:03 IMPRESSION: There are no acute findings. Electronically Signed: Ricardo Trevino MD at 19:38 EDT Reading Location ID and State: [facility] / [place] , Service support , Physical Exam Narrative General: Alert, Oriented x3, Cooperative, morbid obesity 46.6 kg/m? HEENT: While in short neck, atraumatic, PERRLA, EOMI, Normocephalic Oral: Deep oropharyngeal exam could not be well visualized. No Gingival or Mucosal Lesions/ Ulcerations Neck: Supple, No JVD, Negative Carotid Bruits Lungs: Air entry diminished in bilateral lung bases. Bilateral end expiratory fine wheezing Cardiovascular: Regular rate, Regular Rhythm, Normal S1, Normal S2, No murmurs Abdomen: Bowel Sounds Present, Soft, Non Tender, Non-Distended : No renal angle tenderness. No suprapubic tenderness. Extremities: Shuttle edema bilateral ankle edema, Capillary Refill Less than 3 Seconds Skin: No rashes, No breakdown Musculoskeletal: No Tenderness to Palpation of Joints or Extremities Neurological: Cranial nerves II-XII grossly intact, DTR 2+/4 and Symmetrical, Neuro grossly intact Psych/Mental Status: Normal Affect, Appropriate Assessment & Plan Assessment/Plan (1) Hypertensive emergency: (2) Congestive heart failure (CHF): QUALIFIERS: Heart failure chronicity: acute Heart failure type: systolic Qualified Code(s): I50.21 - Acute systolic (congestive) heart failure (3) Non-ST elevated myocardial infarction: (4) Viral URI with cough: PLAN: The patient is a 51 y/o M was admitted with shortness of breath for 2 days along with URI symptoms. Patient was found hypertensive emergency. #1. Non-STEMI most likely type II, demand ischemia most likely due to acute on chronic systolic heart failure, hypertensive emergency and recent URI: Patient is being admitted in ICU. Does not have chest pain/pressure or tightness. Patient been seen by set up operator tool. Plan for 2D echo. Patient on aspirin, Plavix, carvedilol, statin, lisinopril. Serial troponins recorded high. Plan for medical management 2. Hypertensive emergency: In ED, blood pressure was 231/168, map 189, heart rate 121 400, respiratory rate 24. Patient was initiated on nitroglycerin drip. Blood pressure is improved to 158 mm systolic. Patient is off nitroglycerin drip. Patient amlodipine carvedilol 3. Acute on chronic systolic heart failure with history of coronary artery status post PCI/stent of LAD and left circumflex artery: Most recent echo in September 2014 showed mild to moderate segmental systolic dysfunction EF 40%, moderate to severe concentric LVH, enlarged LA, mild MR, RVSP 33 mmHg. Repeat echo ordered. On furosemide. 4. Suspected recent acute viral syndrome due to human metapneumovirus: In ED patient had acute bronchospasm. On bronchodilators, IV Solu-Medrol, incentive spirometry 5. Diabetes mellitus type II: Hold oral home regimen, continue home insulin regimen, ADA diet until midnight, accu checks with ISS. 6. Hyperlipidemia: Continue home statin regimen. Triglycerides 131, Cholesterol 173, LDL Cholesterol 105, VLDL Cholesterol 26, HDL Cholesterol 42. High intensity statin 7. Morbid Obesity: Weight loss and lifestyle changes encouraged. 8. Gout: continue patient home allopurinol regimen. 9 GERD: We will continue patient on PPI. 10. GEORGES/OHS: On BiPAP. Will need outpatient PFTs/sleep test 11 DVT prophylaxis: SCDs, heparin drip. Clinical Impression(s) from Imaging Studies Chest X-Ray 10/23/21 19:03 IMPRESSION: There are no acute findings. Active Medications Acetaminophen (Acetaminophen 325 Mg Tablet) 650 mg PO Q4H PRN PRN PRN Reason: Fever, pain 1-04/27 Albuterol Sulfate (Albuterol 2.5 Mg/3 Ml Vial.Neb.) 2.5 mg INHALATION Q2H PRN PRN PRN Reason: Dyspnea, wheezing Albuterol/Ipratropium (Ipratropium/Albuterol Sulfate 3 Ml Ampul.Neb) 3 ml INHALATION Q4HWA.RT [facility] Last Admin: 10/24/21 06:36 Dose: 3 ml Documented by: [facility]opurinol ([facility] 100 Mg Tablet) [facility] Admin: 10/24/21 08:34 Dose: 400 mg Documented by: Amlodipine Besylate (Amlodipine 10 Mg Tablet) 10 mg PO DAILY [facility] Last Admin: 10/24/21 08:33 Dose: 10 mg Documented by: Aspirin (Aspirin 81 Mg Tab.Chew) [facility] Last Admin: 10/24/21 08:34 Dose: 81 mg Documented by: Carvedilol (Carvedilol 25 Mg Tablet) 25 mg PO BID [facility] Last Admin: 10/24/21 08:43 Dose: 25 mg Documented by: Clopidogrel Bisulfate (Clopidogrel Bisulfate 75 Mg Tablet) 75 mg PO DAILY [facility] Last Admin: 10/24/21 08:33 Dose: 75 mg Documented by: Furosemide (Furosemide 40 Mg Tablet) 40 mg PO DAILY [facility] Last Admin: 10/24/21 08:34 Dose: 40 mg Documented by: Guaifenesin/Codeine Phosphate (Guaifenesin/Codeine 5 Ml Udc) 5 ml PO Q6H PRN PRN PRN Reason: severe coughing Last Admin: 10/24/21 04:17 Dose: 5 ml Documented by: Heparin Sodium (Porcine) (Heparin Injection (Vial) 5,000 Unit/Ml Vial) 0 unit IV UD PRN; Protocol PRN Reason: dose adjustment Hydralazine HCl (Hydralazine 20 Mg/Ml Vial) 10 mg IV Q4H PRN PRN PRN Reason: SBP > 160 Heparin Sodium (Porcine) 25, (000 unit/ Dextrose) 250 mls @ 21 mls/hr CONT INF .[id number] [facility]; Protocol Last Admin: 10/24/21 10:46 Dose: Not Given Documented by: Nitroglycerin/Dextrose () 250 mls @ 3 mls/hr IV .[id number] [facility]; Protocol Last Titration: 10/23/21 22:45 Dose: 0 mcg/min, 0 mls/hr Documented by: Sodium Chloride () 250 mls @ 15 mls/hr IV .[id number] PRN PRN Reason: Saline Flush Sodium Chloride () 250 mls @ 15 mls/hr IV .[id number] PRN PRN Reason: Additional IVPB Infusion Insulin Human Lispro (Insulin Lispro 100 Unit/Ml Insuln.Pen) 0 unit [facility]; Protocol Last Admin: 10/24/21 08:32 Dose: 8 units Documented by: Lisinopril (Lisinopril 20 Mg Tablet) 20 mg PO BID [facility] Last Admin: 10/24/21 08:33 Dose: 20 mg Documented by: Melatonin (Melatonin 3 Mg Tablet) 3 mg PO QHS PRN PRN PRN Reason: INSOMNIA Methylprednisolone (Methylprednisolone 40 Mg/Ml Vial) 40 mg IV Q8 [facility] Last Admin: 10/24/21 06:30 Dose: 40 mg Documented by: Ondansetron HCl (Ondansetron 4 Mg/2 Ml Vial) 4 mg IV Q8H PRN PRN PRN Reason: NAUSEA/VOMITING Oxycodone HCl (Oxycodone 5 Mg Tablet) 7.5 mg PO 4X/DAY [facility] Last Admin: 10/24/21 08:43 Dose: 7.5 mg Documented by: Pantoprazole Sodium (Pantoprazole Sodium 20 Mg Tablet) 20 mg PO BID [facility] Last Admin: 10/24/21 08:34 Dose: 20 mg Documented by: Prochlorperazine Edisylate (Prochlorperazine 10 Mg/2 Ml Vial) 5 mg IV Q4H PRN PRN PRN Reason: Breakthrough Nausea/Vomiting Sodium Chloride (0.9% Saline Lock 10 Ml Syringe) 10 - 40 ml IV UD PRN PRN Reason: SALINE FLUSH Spironolactone (Spironolactone 25 Mg Tablet) 25 mg PO BID [facility] Last Admin: 10/24/21 08:33 Dose: 25 mg Documented by: Charges/Coding Visit Charges Inpatient E&M: [id number] [facility] Hosp L3
[2021-10-24 08:26] LABS: Bedside Glucose 382 mg/dL (74-106)
[2021-10-24] MEDS: Insulin Lispro 100 UNIT/ML INSULN.PEN SC ×3 (08:32→21:49)
[2021-10-24] MEDS: Lisinopril 20 MG Tablet PO ×2 (08:33→21:51)
[2021-10-24] MEDS: Spironolactone 25 MG Tablet PO (08:33)
[2021-10-24] MEDS: Clopidogrel Bisulfate 75 MG Tablet PO (08:33)
[2021-10-24] MEDS: amLODIPine 10 MG Tablet PO (08:33)
[2021-10-24] MEDS: Allopurinol 100 MG Tablet 400 MG PO (08:34)
[2021-10-24] MEDS: Pantoprazole Sodium 20 MG Tablet PO ×2 (08:34→21:50)
[2021-10-24] MEDS: Aspirin 81 MG TAB.CHEW PO (08:34)
[2021-10-24] MEDS: Furosemide 40 MG Tablet PO (08:34)
[2021-10-24] MEDS: Insulin Glargine-YFGN 100 UNIT/ML Pen 93 UNIT SC (08:35)
[2021-10-24] MEDS: Carvedilol 25 MG Tablet PO ×2 (08:43→21:49)
[2021-10-24] MEDS: oxyCODONE 5 MG Tablet 7.5 MG PO ×4 (08:43→21:50)
--- NOTE | 2021-10-24 10:00 | CASEMGMT ---
RN CM OPERATIONS OFFICER CM to room to meet with patient for initial transition planning/care coordination assessment. RN PHAN introduced self and role at [facility]. Pt voices understanding and consents to assessment at this time. Pt sitting on edge of bed in no distress at this time. @ bedside. Pt is A/O at this time and answers all questions appropriately. Care providers, pharmacy, and demographics verified/updated at this time. PCP: Dr Darion Jasmine Specialists: None. Used to go to [facility], but states was cleared and no longer goes there. Preferred Pharmacy: [facility] Retail Insurance: [employer] Prescription Benefit: Yes Living Will/HPOA: States does not have LW or HCPOA . Interested in more information and would like to talk w/SW to complete. Will notify SWRebekah. Pt made aware if SW not able to meet w/him to complete these while @ [facility], this can be completed as an OP. Provided Social Service rac card with number to utilize [facility] social work as an OP, if pt chooses. Patient expresses understanding. LNOK: , Mar. 4 adult children. 4 children under 18. Living Arrangements: Lives w/ and 3 children in 2-story home. Bedroom on 2nd floor. Bathroom both 1st and 2nd floor. Independent w/ADL's and IADL's. Transportation: Pt states drives self and states no transportation concerns at this time. also drives. DME: States has the following DME: glucometer, [employer] system, nebulizer. CPAP through [employer]. States has not been compliant d/t the mask is uncomfortable. Recommended to contact [employer] to discuss possible options of different masks/nasal pieces. Pt states no need for further DME at this time. HHC/SNF: No hx of either. Pt wishes to return home and states has no concerns with going home at time of discharge. CM to follow for any further discharge planning/needs. Pt and voice no further concerns/needs at this time. PLAN: Home w/spousal support and discharge plans in place. Dell WALKER RN CM
[2021-10-24 11:35] LABS: Bedside Glucose > 500 mg/dL (74-106)
[2021-10-24] MEDS: Insulin Lispro 100 UNIT/ML INSULN.PEN 20 UNIT SC ×2 (11:59→16:42)
[2021-10-24 13:21] LABS: Partial Thromboplast Time 80.4 Seconds (24.1-36.2)
--- NOTE | 2021-10-24 15:09 | CASEMGMT ---
FELICE CHISHOLM NOTE: Pt screened with [facility] Palliative Care Screening Tool for CHF. Pt does not meet criteria. Dell WALKER RN CM
[2021-10-24] MEDS: Enoxaparin 40 MG/0.4 ML Syringe SC ×2 (15:13→23:18)
--- NOTE | 2021-10-24 16:38 | PCM.PN.CARD ---
Subjective Subjective No event from last night No symptoms of chest pain Transferred from ICU to progressive care unit Objective Data Vital Signs: Vital Signs Temp Pulse Resp BP Pulse Ox 97.8 F 86 20 H 151/94 H 95 10/24/21 15:46 10/24/21 15:46 10/24/21 15:46 10/24/21 15:46 10/24/21 15:46 Oxygen Delivery Method Room Air Weight: 362 lb 10.566 oz Body Mass Index (BMI) 48.4 Intake & Output: Intake and Output for Last 24 Hours 10/22/21 10/23/21 10/24/21 23:59 23:59 23:59 Intake Total 10.30 / 950.30 1698.1 / 1698.1 Output Total 4025 / 4025 Balance 10.30 / 50.30 -2326.9 / -2326.9 Lab / Micro Data Result Diagrams: 10/24/21 04:12 10/24/21 04:12 Labs: Laboratory Results - last 24 hr 10/23/21 18:40: WBC 10.7, RBC 5.52, Hgb 15.0, Hct 43.8, MCV 79.3 L, MCH 27.2, MCHC 34.2, RDW Std Deviation 39.4, RDW Coeff of Madhavi 13.7, Plt Count 225, MPV 10.7, Immature Gran % (Auto) 0.600, Neut % (Auto) 70.8 H, Lymph % (Auto) 13.7 L, [place] % (Auto) 12.0 H, Eos % (Auto) 2.3, Baso % (Auto) 0.6, Absolute Neuts (auto) 7.6, Absolute Lymphs (auto) 1.47, Nucleated RBC % 0 10/23/21 18:40: Sodium 134 L, Potassium 4.0, Chloride 102, Carbon Dioxide 26.0, Anion Gap 6, BUN 23 H, Creatinine 1.47 H, Estim Creat Clear Calc 68.34, Est GFR (MDRD) Af Amer 65, Est GFR (MDRD) Non-Af 53 L, BUN/Creatinine Ratio 15.6, Glucose 317 H, Calcium 9.1, Troponin I High Sens 761 H* 10/23/21 18:40: B-Natriuretic Peptide 56.2 10/23/21 18:40: Magnesium 1.8, Total Bilirubin 0.30, Direct Bilirubin 0.10, AST 48 H, ALT 52, Alkaline Phosphatase 106, Total Protein 8.0, Albumin 3.6, Globulin 4.4 H 10/23/21 20:58: Urine Color Yellow, Urine Clarity Clear, Urine pH 5.0, Ur Specific [place] 1.020, Urine Protein 100 H, Urine Glucose (UA) 1000 H, Urine Ketones 5 H, Urine Occult Blood 50 H, Urine Nitrite Negative, Urine Bilirubin Negative, Urine Urobilinogen Normal, Ur Leukocyte Esterase Negative 10/23/21 21:36: PT 13.0, INR 1.0, APTT 32.4 10/23/21 21:36: Procalcitonin 0.31 H 10/23/21 21:40: MRSA (PCR) Negative 10/23/21 21:40: Troponin I High Sens 770 H* 10/23/21 22:06: POC Glucose 312 H 10/24/21 00:35: Troponin I High Sens 777 H* 10/24/21 04:12: WBC 9.7, RBC 5.22, Hgb 13.8, Hct 42.4, MCV 81.2, MCH 26.4 L, MCHC 32.5, RDW Std Deviation 40.4, RDW Coeff of Madhavi 13.8, Plt Count 232, MPV 11.1, Immature Gran % (Auto) 0.700, Neut % (Auto) 82.2 H, Lymph % (Auto) 10.2 L, [place] % (Auto) 6.6, Eos % (Auto) 0.0, Baso % (Auto) 0.3, Absolute Neuts (auto) 7.9 H, Absolute Lymphs (auto) 0.99, Nucleated RBC % 0 10/24/21 04:12: Sodium 130 L, Potassium 4.7, Chloride 98, Carbon Dioxide 26.0, Anion Gap 6, BUN 26 H, Creatinine 1.58 H, Estim Creat Clear Calc 63.59, Est GFR (MDRD) Af Amer 60, Est GFR (MDRD) Non-Af 49 L, BUN/Creatinine Ratio 16.5, Glucose 454 H*, Calcium 8.5, Total Bilirubin 0.50, AST 39 H, ALT 48, Alkaline Phosphatase 96, Total Protein 7.6, Albumin 3.4, Globulin 4.2, Albumin/Globulin Ratio 0.8 L, Triglycerides 131, Cholesterol 173, LDL Cholesterol 105, VLDL Cholesterol 26, HDL Cholesterol 42 10/24/21 04:12: APTT 190.0 H* 10/24/21 08:17: POC Glucose 382 H 10/24/21 11:28: POC Glucose > 500 H* 10/24/21 13:06: APTT 80.4 H Micro: Microbiology 10/23/21 21:30 Sputum, Expectorated/Coughed Gram Stain - Final 10/23/21 21:30 Sputum, Expectorated/Coughed Respiratory Culture - Preliminary Alpha Hemolytic Streptococcus 10/23/21 22:55 Mucosa - Nasopharyngeal Respiratory Panel (PCR) - Final Human [place] 10/23/21 20:58 Urine, Clean Catch Legionella Antigen - Final 10/23/21 20:58 Urine, Clean Catch Streptococcus pneumoniae Antigen (M - Final Cardiology Labs/Tests 10/23/21 18:40: WBC 10.7, RBC 5.52, Hgb 15.0, Hct 43.8, MCV 79.3 L, MCH 27.2, MCHC 34.2, Plt Count 225, MPV 10.7, Immature Gran % (Auto) 0.600, Neut % (Auto) 70.8 H, Lymph % (Auto) 13.7 L, [place] % (Auto) 12.0 H, Eos % (Auto) 2.3, Baso % (Auto) 0.6, Absolute Neuts (auto) 7.6, Nucleated RBC % 0 10/23/21 18:40: Sodium 134 L, Potassium 4.0, Chloride 102, Carbon Dioxide 26.0, Anion Gap 6, BUN 23 H, Creatinine 1.47 H, Est GFR (MDRD) Af Amer 65, Est GFR (MDRD) Non-Af 53 L, BUN/Creatinine Ratio 15.6, Glucose 317 H, Calcium 9.1 10/23/21 18:40: B-Natriuretic Peptide 56.2 10/23/21 18:40: Magnesium 1.8, Total Bilirubin 0.30, Direct Bilirubin 0.10 10/23/21 20:58: Urine Color Yellow, Urine Clarity Clear, Urine pH 5.0, Ur Specific [place] 1.020, Urine Protein 100 H, Urine Glucose (UA) 1000 H, Urine Ketones 5 H, Urine Occult Blood 50 H, Urine Nitrite Negative, Urine Bilirubin Negative, Urine Urobilinogen Normal, Ur Leukocyte Esterase Negative 10/23/21 21:36: PT 13.0, INR 1.0, APTT 32.4 10/24/21 04:12: WBC 9.7, RBC 5.22, Hgb 13.8, Hct 42.4, MCV 81.2, MCH 26.4 L, MCHC 32.5, Plt Count 232, MPV 11.1, Immature Gran % (Auto) 0.700, Neut % (Auto) 82.2 H, Lymph % (Auto) 10.2 L, [place] % (Auto) 6.6, Eos % (Auto) 0.0, Baso % (Auto) 0.3, Absolute Neuts (auto) 7.9 H, Nucleated RBC % 0 10/24/21 04:12: Sodium 130 L, Potassium 4.7, Chloride 98, Carbon Dioxide 26.0, Anion Gap 6, BUN 26 H, Creatinine 1.58 H, Est GFR (MDRD) Af Amer 60, Est GFR (MDRD) Non-Af 49 L, BUN/Creatinine Ratio 16.5, Glucose 454 H*, Calcium 8.5, Total Bilirubin 0.50, Triglycerides 131, Cholesterol 173, LDL Cholesterol 105, VLDL Cholesterol 26, HDL Cholesterol 42 10/24/21 04:12: APTT 190.0 H* 10/24/21 13:06: APTT 80.4 H Rhythm: EKG: ECHO: Stress Test: Cardiac Cath: PCI: CT Surgery: Holter monitor: EPS: PPM: CXR: Chest CT Scan: Radiography Diagnostic Testing: Radiology Impression Chest X-Ray 10/23/21 19:03 IMPRESSION: There are no acute findings. Electronically Signed: Ricardo Trevino MD at 19:38 EDT Reading Location ID and State: [facility] / [place] , Service support , Echocardiogram 10/23/21 21:20 Interpretation Summary The estimated ejection fraction is 50 %. Grade #1 Diastolic Dysfunction RV systolic pressure estimated 30 mmhg No significant changes from prior echo Ordering Physician: Jewels Combs Referring Physician: DELLA MONREAL Performed By: Amy Nichols RDCS Physical Exam Narrative Patient alert orientated x3 Symptoms of shortness of breath is improving on the current treatment front desk monitor showed underlying normal sinus Cardiac exam S1-S2 regular Chest exam diminished air entry bilateral with mild bilateral basilar rales. Assessment & Plan Assessment/Plan (1) Viral URI with cough: (2) Congestive heart failure (CHF): QUALIFIERS: Heart failure type: systolic Heart failure chronicity: acute Qualified Code(s): I50.21 - Acute systolic (congestive) heart failure (3) Hypertensive emergency: (4) Non-ST elevated myocardial infarction: PLAN: Patient presentation is symptoms shortness of breath with cough with a diagnosis of viral upper respiratory infection CAD ischemic cardiomyopathy with a history of PCI and stent of LADAnd the left circumflex And also had acute on chronic systolic heart failure On this admission noted he had elevated high sensitive troponin with a clinical diagnosis of type II OR demand myocardial ischemia Patient had no active symptoms of chest pain I reviewed his echocardiogram and it showed similar ejection fraction of around 50% with mild global LV hypokinesia Cardiac care plan recommendations; 1. I discussed with his primary tactical deception plans officer cardiac care plan Dr. Ellis 2. We will continue current medical treatment. 3. We will follow-up clinically
--- NOTE | 2021-10-24 16:56 | CASEMGMT ---
Social Work SW assisted pt in completing Health care POA naming his Mar Mckeon. Pt choosing not to complete living will at this time. Original given to pt and copy placed on pt chart. KIET Tran
[2021-10-24 17:00] LABS: Bedside Glucose 368 mg/dL (74-106)
[2021-10-24] MEDS: 0.9% Saline Lock 10 ML Syringe IV (21:51)
[2021-10-24 22:16] LABS: Bedside Glucose 200 mg/dL (74-106)
[2021-10-25] VITALS (8 sets, daily range): BP systolic 146–198; BP diastolic 95–135; PULSE 66–79; RESP 16–20; TEMP 36.7–36.8; O2SAT 94–97
[2021-10-25] MEDS: 0.9% Saline Lock 10 ML Syringe IV ×2 (05:21→08:38)
[2021-10-25] MEDS: guaiFENesin/Codeine 5 ML UDC PO (05:37)
[2021-10-25 06:42] LABS: Absolute Lymphocyte Count 1.31 X10^3/uL (0.83-4.51); Basophil# 0.01 X10^3/uL; Basophil% 0.1 % (0-1); Hematocrit 42.8 % (40-54); Lymphocyte # 1.31 X10^3/ul (0.83-4.51); Lymphocyte % 16.2 % (19-41); Mean Corp Hgb Conc 32.7 g/dL (32-36); Mean Corpuscular Hgb 26.6 pg (27.0-32.0); Mean Corpuscular Volume 81.4 fL (80-94); Mean Platelet Vol. 10.5 fl (6.2-12.0); Monocyte# 0.75 X10^3/uL; Monocyte% 9.2 % (0-10); NRBC Flagged by Analyzer 0 % (0-5); Platelet Count 230 K/mm3 (150-450); RBC Distribution Width SD 40.6 fl (35.1-43.9); Red Blood Count 5.26 M/mm3 (4.6-6.2); White Blood Count 8.1 K/mm3 (4.4-11.0)
[2021-10-25 07:04] LABS: Anion Gap 7 (5-15); BUN 31 mg/dL (7-18); BUN/Creat Ratio 21.4 RATIO (10-20); Calcium,Total 8.6 mg/dL (8.5-10.1); Chloride 96 mmol/L (98-107); Creatinine, Serum 1.45 mg/dL (0.70-1.30); EST Glomerular Filtration Rate 54 mL/min (>60); Est Glom Filt Rate - Afr Amer 66 mL/min (>60); Estimated Creatinine Clearance 69.29 ml/min; Glucose 358 mg/dL (74-106); Magnesium 2.1 mg/dL (1.6-2.6); Potassium 4.4 mmol/L (3.5-5.1); Sodium Level 129 mmol/L (136-145)
[2021-10-25] MEDS: Ipratropium/Albuterol Sulfate 3 ML AMPUL.NEB INHALATION ×2 (07:41→11:27)
--- NOTE | 2021-10-25 08:08 | PCM.PN.INT ---
Assessment & Plan Assessment/Plan (1) Viral URI with cough: (2) Non-ST elevated myocardial infarction: PLAN: RECOMMENDATIONS: 1. Continue home antihypertensive regimen. 2. Continue supportive care for viral URI with bronchodilators and steroids. 3. Continue as needed cough suppressant. 4. Encourage incentive spirometer use and mobilize patient as tolerated. IMPRESSIONS: 1. Shortness of breath and cough secondary to human metapneumovirus upper respiratory infection The patient is currently maintaining appropriate oxygen saturations on room air. Plan to continue current supportive measures including bronchodilators and steroids. Encourage incentive spirometer use and mobilize patient as tolerated. Continue as needed cough suppressant. 2. Hypertensive urgency Secondary to noncompliance with outpatient medication regimen. The patient has been weaned from the nitro glycerin infusion. He will be continued on his home antihypertensive regimen and monitored clinically. 3. Non-ST segment elevation CA [place] to be secondary to demand ischemia in the setting of numbers 1 and 2. Cardiology is currently following to assist with medical management. 4. History of systolic CHF/ischemic cardiomyopathy/diabetes mellitus/morbid obesity/GEORGES with PAP noncompliance Complicates care, management, recovery and prognosis. Continue home medications as indicated. Nocturnal Pap therapy can be offered to the patient while admitted to the hospital. This note was generated with [employer] dictation software. It may contain incorrect words, spelling, and punctuation that were not noted in checking the note before signing. Subjective Subjective The patient was seen and examined at the bedside this morning. Events from the last 24 hours have been reviewed. The patient is currently afebrile, hemodynamically stable and maintaining appropriate oxygen saturations on room air. The patient continues to have a cough. Glucose is elevated this morning. Objective Data Objective Data The patient's most recent lab work, culture data and imaging studies have all been personally reviewed. Surface echocardiogram demonstrated severe LVH with an ejection fraction of 50%. Respiratory viral panel was positive for human metapneumovirus. Vital Signs: Vital Signs Temp Pulse Resp BP Pulse Ox 98.2 F 79 18 169/102 H 96 10/25/21 03:24 10/25/21 07:43 10/25/21 07:43 10/25/21 03:24 10/25/21 03:24 Oxygen Delivery Method Room Air Weight: 163.8 kg Body Mass Index (BMI) 48.4 Intake & Output: Intake and Output for Last 24 Hours 10/23/21 10/24/21 10/25/21 23:59 23:59 23:59 Intake Total 10.30 / 950.30 2977.28 / 2977.28 480 / 480 Output Total 4025 / 4025 Balance 10.30 / 50.30 -1047.72 / -1047.72 480 / 480 Lab / Micro Data Attestation: I reviewed the patient's lab results. Result Diagrams: 10/25/21 06:25 10/25/21 06:25 Labs: Laboratory Results - last 24 hr 10/24/21 08:17: POC Glucose 382 H 10/24/21 11:28: POC Glucose > 500 H* 10/24/21 13:06: APTT 80.4 H 10/24/21 16:41: POC Glucose 368 H 10/24/21 21:31: POC Glucose 200 H 10/25/21 06:25: WBC 8.1, RBC 5.26, Hgb 14.0, Hct 42.8, MCV 81.4, MCH 26.6 L, MCHC 32.7, RDW Std Deviation 40.6, RDW Coeff of Madhavi 14.0, Plt Count 230, MPV 10.5, Immature Gran % (Auto) 0.500, Neut % (Auto) 74.0 H, Lymph % (Auto) 16.2 L, Wilson % (Auto) 9.2, Eos % (Auto) 0.0, Baso % (Auto) 0.1, Absolute Neuts (auto) 6.0, Absolute Lymphs (auto) 1.31, Nucleated RBC % 0 10/25/21 06:25: Sodium 129 L, Potassium 4.4, Chloride 96 L, Carbon Dioxide 26.0, Anion Gap 7, BUN 31 H, Creatinine 1.45 H, Estim Creat Clear Calc 69.29, Est GFR (MDRD) Af Amer 66, Est GFR (MDRD) Non-Af 54 L, BUN/Creatinine Ratio 21.4 H, Glucose 358 H, Calcium 8.6, Magnesium 2.1 Micro: Microbiology 10/23/21 21:30 Sputum, Expectorated/Coughed Gram Stain - Final 10/23/21 21:30 Sputum, Expectorated/Coughed Respiratory Culture - Preliminary Alpha Hemolytic Streptococcus 10/23/21 22:55 Mucosa - Nasopharyngeal Respiratory Panel (PCR) - Final Human [place] 10/23/21 20:58 Urine, Clean Catch Legionella Antigen - Final 10/23/21 20:58 Urine, Clean Catch Streptococcus pneumoniae Antigen (M - Final Radiography Diagnostic Testing: Radiology Impression Echocardiogram 10/23/21 21:20 Interpretation Summary The estimated ejection fraction is 50 %. Grade #1 Diastolic Dysfunction RV systolic pressure estimated 30 mmhg No significant changes from prior echo Ordering Physician: Jewels Combs Referring Physician: DELLA MONREAL Performed By: Amy Nichols RDCS Physical Exam Const alert and no apparent distress General Appearance: cooperative Nutritional Appearance: morbidly obese HEENT normocephalic and head/scalp atraumatic Eyes PERRL, EOMs intact bilaterally and conjunctivae normal Neck supple General: trachea midline Chest inspection of chest normal Resp Auscultation: diminished lung sounds; Negative for rales, rhonchi or wheezes Cardio regular rate and regular rhythm GI normal to inspection, nondistended, normoactive bowel sounds Extremity no clubbing, cyanosis or edema Skin no rashes or lesions noted Neuro CN's II-XII intact bilaterally, moves all extremities and no focal motor deficits Psych cooperative and affect normal Charges/Coding Visit Charges Inpatient E&M: 13685 Subs Hosp L2
[2021-10-25] MEDS: Insulin Glargine-YFGN 100 UNIT/ML Pen 93 UNIT SC (08:22)
[2021-10-25] MEDS: Insulin Lispro 100 UNIT/ML INSULN.PEN SC ×2 (08:22→12:25)
[2021-10-25] MEDS: Insulin Lispro 100 UNIT/ML INSULN.PEN 20 UNIT SC ×2 (08:22→12:25)
[2021-10-25] MEDS: oxyCODONE 5 MG Tablet 7.5 MG PO (08:24)
[2021-10-25 08:30] LABS: Bedside Glucose 362 mg/dL (74-106)
[2021-10-25] MEDS: Enoxaparin 40 MG/0.4 ML Syringe SC (08:37)
[2021-10-25] MEDS: Spironolactone 25 MG Tablet PO (08:37)
[2021-10-25] MEDS: Lisinopril 20 MG Tablet PO (08:37)
[2021-10-25] MEDS: Pantoprazole Sodium 20 MG Tablet PO (08:37)
[2021-10-25] MEDS: amLODIPine 10 MG Tablet PO (08:37)
[2021-10-25] MEDS: Aspirin 81 MG TAB.CHEW PO (08:37)
[2021-10-25] MEDS: Carvedilol 25 MG Tablet PO (08:37)
[2021-10-25] MEDS: Clopidogrel Bisulfate 75 MG Tablet PO (08:37)
[2021-10-25] MEDS: Furosemide 40 MG/4 ML Vial IV (08:38)
--- NOTE | 2021-10-25 10:12 | PN.HOSP_ITS ---
Subjective Subjective Patient blood pressure is high 198/135. He states his blood pressure goes [place] steroid from IV Solu-Medrol discontinued. Also higher on prednisone in the past. He has history of his smoking intermittently in late teens and early 20s but not more than 10 years. Denies history of chronic cough or smoking. He has sleep apnea Objective Data Objective Data Vital Signs: Vital Signs Temp Pulse Resp BP Pulse Ox 98.3 F 76 20 H 198/135 H 94 10/25/21 08:19 10/25/21 08:19 10/25/21 08:19 10/25/21 08:19 10/25/21 08:19 Oxygen Delivery Method Room Air Weight: 361 lb 1.875 oz Body Mass Index (BMI) 48.4 Intake & Output: Intake and Output for Last 24 Hours 10/23/21 10/24/21 10/25/21 23:59 23:59 23:59 Intake Total 10.30 / 950.30 2977.28 / 2977.28 480 / 480 Output Total 4025 / 4025 Balance 10.30 / 50.30 -1047.72 / -1047.72 480 / 480 Lab / Micro Data Result Diagrams: 10/25/21 06:25 10/25/21 06:25 Labs: Laboratory Results - last 24 hr 10/24/21 11:28: POC Glucose > 500 H* 10/24/21 13:06: APTT 80.4 H 10/24/21 16:41: POC Glucose 368 H 10/24/21 21:31: POC Glucose 200 H 10/25/21 06:25: WBC 8.1, RBC 5.26, Hgb 14.0, Hct 42.8, MCV 81.4, MCH 26.6 L, MCHC 32.7, RDW Std Deviation 40.6, RDW Coeff of Madhavi 14.0, Plt Count 230, MPV 10.5, Immature Gran % (Auto) 0.500, Neut % (Auto) 74.0 H, Lymph % (Auto) 16.2 L, [place] % (Auto) 9.2, Eos % (Auto) 0.0, Baso % (Auto) 0.1, Absolute Neuts (auto) 6.0, Absolute Lymphs (auto) 1.31, Nucleated RBC % 0 10/25/21 06:25: Sodium 129 L, Potassium 4.4, Chloride 96 L, Carbon Dioxide 26.0, Anion Gap 7, BUN 31 H, Creatinine 1.45 H, Estim Creat Clear Calc 69.29, Est GFR (MDRD) Af Amer 66, Est GFR (MDRD) Non-Af 54 L, BUN/Creatinine Ratio 21.4 H, Glucose 358 H, Calcium 8.6, Magnesium 2.1 10/25/21 08:14: POC Glucose 362 H Micro: Microbiology 10/23/21 21:30 Sputum, Expectorated/Coughed Gram Stain - Final 10/23/21 21:30 Sputum, Expectorated/Coughed Respiratory Culture - Preliminary Alpha Hemolytic Streptococcus 10/23/21 22:55 Mucosa - Nasopharyngeal Respiratory Panel (PCR) - Final Human [place] 10/23/21 20:58 Urine, Clean Catch Legionella Antigen - Final 10/23/21 20:58 Urine, Clean Catch Streptococcus pneumoniae Antigen (M - Final Radiography Diagnostic Testing: Radiology Impression Echocardiogram 10/23/21 21:20 Interpretation Summary The estimated ejection fraction is 50 %. Grade #1 Diastolic Dysfunction RV systolic pressure estimated 30 mmhg No significant changes from prior echo Ordering Physician: Jewels Combs Referring Physician: DELLA MONREAL Performed By: Amy Nichols RDCS Physical Exam Narrative General: Alert, Oriented x3, Cooperative, morbid obesity 46.6 kg/m? HEENT: While in short neck, atraumatic, PERRLA, EOMI, Normocephalic Oral: Deep oropharyngeal exam could not be well visualized. No Gingival or Mucosal Lesions/ Ulcerations Neck: Supple, No JVD, Negative Carotid Bruits Lungs: Air entry diminished in bilateral lung bases. Bilateral end expiratory fine wheezing Cardiovascular: Regular rate, Regular Rhythm, Normal S1, Normal S2, No murmurs Abdomen: Bowel Sounds Present, Soft, Non Tender, Non-Distended : No renal angle tenderness. No suprapubic tenderness. Extremities: Shuttle edema bilateral ankle edema, Capillary Refill Less than 3 Seconds Skin: No rashes, No breakdown Musculoskeletal: No Tenderness to Palpation of Joints or Extremities Neurological: Cranial nerves II-XII grossly intact, DTR 2+/4 and Symmetrical, Neuro grossly intact Psych/Mental Status: Normal Affect, Appropriate Assessment & Plan Assessment/Plan (1) Hypertensive emergency: (2) Congestive heart failure (CHF): QUALIFIERS: Heart failure chronicity: acute Heart failure type: systolic Qualified Code(s): I50.21 - Acute systolic (congestive) heart failure (3) Non-ST elevated myocardial infarction: (4) Viral URI with cough: PLAN: The patient is a 51 y/o M was admitted with shortness of breath for 2 days along with URI symptoms. Patient was found hypertensive emergency. #1. Non-STEMI most likely type II, demand ischemia most likely due to acute on chronic systolic heart failure, hypertensive emergency and recent URI: Patient is being admitted in ICU. Does not have chest pain/pressure or tightness. Patient been seen by legal billing coordinator. Plan for 2D echo. Patient on aspirin, Plavix, carvedilol, statin, lisinopril. Serial troponins recorded high. Plan for medical management 2. Hypertensive emergency: In ED, blood pressure was 231/168, map 189, heart rate 121 400, respiratory rate 24. Patient was initiated on nitroglycerin drip. Blood pressure is improved to 158 mm systolic. Patient is off nitroglycerin drip. Patient amlodipine carvedilol 3. Acute on chronic systolic heart failure with history of coronary artery status post PCI/stent of LAD and left circumflex artery: Most recent echo in September 2014 showed mild to moderate segmental systolic dysfunction EF 40%, moderate to severe concentric LVH, enlarged LA, mild MR, RVSP 33 mmHg. Repeat echo ordered. On furosemide. 4. Suspected recent acute viral syndrome due to human metapneumovirus: In ED patient had acute bronchospasm. On bronchodilators, IV Solu-Medrol, incentive spirometry 5. Diabetes mellitus type II: Hold oral home regimen, continue home insulin regimen, ADA diet until midnight, accu checks with ISS. 6. Hyperlipidemia: Continue home statin regimen. Triglycerides 131, Cholesterol 173, LDL Cholesterol 105, VLDL Cholesterol 26, HDL Cholesterol 42. High intensity statin 7. Morbid Obesity: Weight loss and lifestyle changes encouraged. 8. Gout: continue patient home allopurinol regimen. 9 GERD: We will continue patient on PPI. 10. GEORGES/OHS: On BiPAP. Will need outpatient PFTs/sleep test 11 DVT prophylaxis: SCDs, heparin drip. Clinical Impression(s) from Imaging Studies Chest X-Ray 10/23/21 19:03 IMPRESSION: There are no acute findings. Active Medications Acetaminophen (Acetaminophen 325 Mg Tablet) 650 mg PO Q4H PRN PRN PRN Reason: Fever, pain 1-04/27 Albuterol Sulfate (Albuterol 2.5 Mg/3 Ml Vial.Neb.) 2.5 mg INHALATION Q2H PRN PRN PRN Reason: Dyspnea, wheezing Albuterol/Ipratropium (Ipratropium/Albuterol Sulfate 3 Ml Ampul.Neb) 3 ml INHALATION Q4HWA.RT [facility] Last Admin: 10/24/21 06:36 Dose: 3 ml Documented by: Allopurinol ([facility]opurinol 100 Mg Tablet) [address] [facility] Last Admin: 10/24/21 08:34 Dose: 400 mg Documented by: Amlodipine Besylate (Amlodipine 10 Mg Tablet) 10 mg PO DAILY [facility] Last Admin: 10/24/21 08:33 Dose: 10 mg Documented by: Aspirin (Aspirin 81 Mg Tab.Chew) [address] [facility] Last Admin: 10/24/21 08:34 Dose: 81 mg Documented by: Carvedilol (Carvedilol 25 Mg Tablet) 25 mg PO BID [facility] Last Admin: 10/24/21 08:43 Dose: 25 mg Documented by: Clopidogrel Bisulfate (Clopidogrel Bisulfate 75 Mg Tablet) 75 mg PO DAILY [facility] Last Admin: 10/24/21 08:33 Dose: 75 mg Documented by: Furosemide (Furosemide 40 Mg Tablet) 40 mg PO DAILY [facility] Last Admin: 10/24/21 08:34 Dose: 40 mg Documented by: Guaifenesin/Codeine Phosphate (Guaifenesin/Codeine 5 Ml Udc) 5 ml PO Q6H PRN PRN PRN Reason: severe coughing Last Admin: 10/24/21 04:17 Dose: 5 ml Documented by: Heparin Sodium (Porcine) (Heparin Injection (Vial) 5,000 Unit/Ml Vial) 0 unit IV UD PRN; Protocol PRN Reason: dose adjustment Hydralazine HCl (Hydralazine 20 Mg/Ml Vial) 10 mg IV Q4H PRN PRN PRN Reason: SBP > 160 Heparin Sodium (Porcine) 25, (000 unit/ Dextrose) 250 mls @ 21 mls/hr CONT INF .[id number] [facility]; Protocol Last Admin: 10/24/21 10:46 Dose: Not Given Documented by: Nitroglycerin/Dextrose () 250 mls @ 3 mls/hr IV .[id number] [facility]; Protocol Last Titration: 10/23/21 22:45 Dose: 0 mcg/min, 0 mls/hr Documented by: Sodium Chloride () 250 mls @ 15 mls/hr IV .[id number] PRN PRN Reason: Saline Flush Sodium Chloride () 250 mls @ 15 mls/hr IV .[id number] PRN PRN Reason: Additional IVPB Infusion Insulin Human Lispro (Insulin Lispro 100 Unit/Ml Insuln.Pen) 0 unit SC ACHS [facility]; Protocol Last Admin: 10/24/21 08:32 Dose: 8 units Documented by: Lisinopril (Lisinopril 20 Mg Tablet) 20 mg PO BID [facility] Last Admin: 10/24/21 08:33 Dose: 20 mg Documented by: Melatonin (Melatonin 3 Mg Tablet) 3 mg PO QHS PRN PRN PRN Reason: INSOMNIA Methylprednisolone (Methylprednisolone 40 Mg/Ml Vial) 40 mg IV Q8 [facility] Last Admin: 10/24/21 06:30 Dose: 40 mg Documented by: Ondansetron HCl (Ondansetron 4 Mg/2 Ml Vial) 4 mg IV Q8H PRN PRN PRN Reason: NAUSEA/VOMITING Oxycodone HCl (Oxycodone 5 Mg Tablet) 7.5 mg PO 4X/DAY [facility] Last Admin: 10/24/21 08:43 Dose: 7.5 mg Documented by: Pantoprazole Sodium (Pantoprazole Sodium 20 Mg Tablet) 20 mg PO BID [facility] Last Admin: 10/24/21 08:34 Dose: 20 mg Documented by: Prochlorperazine Edisylate (Prochlorperazine 10 Mg/2 Ml Vial) 5 mg IV Q4H PRN PRN PRN Reason: Breakthrough Nausea/Vomiting Sodium Chloride (0.9% Saline Lock 10 Ml Syringe) 10 - 40 ml IV UD PRN PRN Reason: SALINE FLUSH Spironolactone (Spironolactone 25 Mg Tablet) 25 mg PO BID [facility] Last Admin: 10/24/21 08:33 Dose: 25 mg Documented by:
[2021-10-25] MEDS: Allopurinol 100 MG Tablet 400 MG PO (10:34)
--- NOTE | 2021-10-25 11:18 | PCM.DC ---
Discharge Instructions Diet Discharge Diet: Low fat / Low cholesterol, 1800 Calorie Control Diet and 2000 mg Sodium Diet Activity Discharge Activity: Return to Normal Activity and May Not Drive (Follow-up PCP 1 to 2-week) Dressing / Incision Call your doctor if you observe: Fever of 101 or Higher, Coldness, Increased Pain, Numbness or Tingling, Change in Color, Inability to urinate, Inability to have a bowel movement, Shortness of breath, Dizziness, Fainting spells, Swelling in the ankles, Chest pain, Prolonged hiccupping, Increased palpitations (irregular heartbeat), Calf discomfort and Uncontrolled pain Follow Up Care Test Results: Test results from this visit will be discussed in further detail at your follow-up appointment, if applicable. Discharge Plan Admission Admit Date/Time: 10/23/21 19:38 Primary Reason for Your Visit: Hypertensive emergency/non-STEMI Attending Provider: Shashi Nathan Primary Care Provider: Darion Jasmine Consulting Providers: Mel Hartmann ; Idris Vila Discharge Orders/Prescriptions Prescriptions: New insulin lispro [Humalog KwikPen Insulin] 100 unit/mL Insulin Pen 25 unit subcut TIDAC Qty: 1 RF: 5 Continued furosemide 40 MG tablet 40 mg PO DAILY RF: 0 lisinopril 20 MG tablet 20 mg PO BID RF: 0 clopidogrel 75 MG tablet 75 mg PO DAILY RF: 0 spironolactone 25 MG tablet 25 mg PO BID RF: 0 amlodipine 10 MG tablet 10 mg PO DAILY RF: 0 aspirin 81 MG tablet,chewable 81 mg PO DAILY RF: 0 allopurinol 100 MG tablet 400 mg PO DAILYCM RF: 0 oxycodone 5 MG tablet 7.5 mg PO 4X/DAY RF: 0 Tradjenta 5 MG tablet 5 mg PO DAILY RF: 0 carvedilol 25 MG tablet 25 mg PO BID Qty: 60 RF: 0 esomeprazole magnesium [Nexium] 20 MG capsule 20 mg PO BID RF: 0 Victoza 2-Kirby 0.6 MG/0.1 ML pen injector 19 mg SQ DAILY RF: 0 benzonatate 100 MG capsule 200 mg PO TID PRN PRN (Reason: Cough) Qty: 20 RF: 0 azelastine 137 mcg (0.1 %) aerosol,spray 2 spray intranasal BID Qty: 30 RF: 0 albuterol sulfate [Ventolin HFA] 90 mcg/actuation HFA aerosol inhaler 2 puff inhalation Q4H PRN PRN (Reason: Wheezing) Qty: 1 RF: 1 Changed Tresiba FlexTouch U-100 100 UNIT/ML insulin pen 100 unit SQ DAILY Qty: 1 RF: 5 Discontinued albuterol sulfate 1 INHALER inhaler 1 - 2 puff INHALATION Q4H PRN PRN (Reason: Wheezing) Qty: 1 RF: 0 prednisone 20 mg tablet 40 mg PO DAILY 5 Days Qty: 10 RF: 0 Referrals / Follow Up: Idris Vila DO [STAFF PHYSICIAN] - Within 1 Month (For PFT and sleep study. Morbid obesity. Possible restrictive lung disease/obesity hypoventilation syndrome) Darion Jasmine DO [Primary Care Provider] - In 1 Week (Hypertensive emergency. Check blood pressure for still high systolic more than 140, can add hydralazine and isosorbide mononitrate) Scooter Douglas MD [STAFF PHYSICIAN] - Within 1 Month (For hypertensive emergency, right heart failure, diastolic heart failure) Disposition Disposition (needs filled in before D/C Order can be placed): Home, Self Care
[2021-10-25 12:36] LABS: Bedside Glucose 369 mg/dL (74-106)
--- NOTE | 2021-10-25 13:28 | PCM.DC.SUM ---
Providers Date of Admission: 10/23/21 Primary Care Physician: Dr. Della Jasmine, Consultations 10/23/21 21:20 Consult: Cardiology Routine Consulting Provider: Mel Hartmann Reason for Consult: NSTEMI, mild CHF exac EMERGENT Consult: No Notified: Yes Date Notified: 10/23/21 Time Notified: 20:40 Method of Notification: cortext Consult: [employer] / Pulmonary Medicine Routine Consulting Provider: Idris Vila Reason for Consult: ICU admit, NSTEMI, CHF, Recent viral syndrome-suspect influenza. EMERGENT Consult: No Notified: Yes Date Notified: 10/23/21 Time Notified: 20:48 Method of Notification: cortext Reason For Visit: NSTEMI, CHF EXAC., ACUTE VIRAL ILLNESS Diagnosis Discharge Diagnosis (1) Hypertensive emergency: Status: Acute Code(s): I16.1 - Hypertensive emergency (2) Congestive heart failure (CHF): Status: Acute Code(s): I50.9 - Heart failure, unspecified Qualifiers: Heart failure chronicity: acute Heart failure type: systolic Qualified Code(s): I50.21 - Acute systolic (congestive) heart failure (3) Non-ST elevated myocardial infarction: Status: Acute Code(s): I21.4 - Non-ST elevation (NSTEMI) myocardial infarction (4) Viral URI with cough: Status: Acute Code(s): J06.9 - Acute upper respiratory infection, unspecified Medications at Discharge Home Medications amlodipine 10 mg PO DAILY 12/01/14 aspirin 81 mg PO DAILY 12/01/14 clopidogrel 75 mg PO DAILY 12/01/14 furosemide 40 mg PO DAILY 12/01/14 lisinopril 20 mg PO BID 12/01/14 spironolactone 25 mg PO BID 12/01/14 allopurinol 400 mg PO DAILYCM 05/24/15 Tradjenta 5 mg PO DAILY 10/20/15 oxycodone 7.5 mg PO 4X/DAY 10/20/15 carvedilol 25 mg PO BID #60 tablet 10/21/15 Victoza 2-Kirby 19 mg SQ DAILY 10/21/17 benzonatate 200 mg PO TID PRN PRN #20 cap 10/21/17 esomeprazole magnesium [Nexium] 20 mg PO BID 10/21/17 albuterol sulfate [Ventolin HFA] 2 puff INHALATION Q4H PRN PRN #1 device 10/22/21 azelastine 2 spray INTRANASAL BID #30 ml 10/22/21 Tresiba FlexTouch U-100 100 unit SQ DAILY #1 ml 10/25/21 atorvastatin 80 mg PO QHS #30 tab 10/25/21 insulin lispro [Humalog KwikPen Insulin] 25 unit SUBCUT TIDAC #1 ml 10/25/21 ipratropium-albuterol 3 ml INHALATION Q4HWA.RT #30 ml 10/25/21 Hospital Course Summary of Care Provided Hospital Course: The patient is a 51 y/o M was admitted with shortness of breath for 2 days along with URI symptoms. Patient was found hypertensive emergency. #1. Non-STEMI most likely type II, demand ischemia most likely due to acute on chronic systolic heart failure, hypertensive emergency and recent URI: Patient is being admitted in ICU. Does not have chest pain/pressure or tightness. Patient been seen by tile professional. Patient on aspirin, Plavix, carvedilol, statin, lisinopril. Serial troponins recorded high. Patient was medically managed. 2D echo was done, EF 50%, mildly dilated RV, severe eccentric LVH. Mildly enlarged LA. Mild MR. Grade 1 diastolic dysfunction. RVSP 30 mmHg. Advised outpatient pulmonary and cardiology follow-up with PFT and sleep study test. Needs to optimal BP. Mild RV dilatation may be due to obesity hypoventilation/sleep apnea. In the past, patient did not complete his sleep study. Continue aspirin and Plavix. 2. Hypertensive emergency: In ED, blood pressure was 231/168, map 189, heart rate 121 400, respiratory rate 24. Patient was initiated on nitroglycerin drip. Blood pressure is improved to 158 mm systolic. Patient is off nitroglycerin drip. 10/25: Patient systolic blood pressure is in 140s. Does not want to lower blood pressure in 48 to 72 hours to and poor peripheral perfusion but advised to follow-up PCP in 1 week and if blood pressure is still elevated, consider hydralazine and isosorbide mononitrate. The patient already on maximum dose of amlodipine, carvedilol, Lasix 40 mg daily, spironolactone and lisinopril. Home prednisone discontinued as patient states blood pressure high after starting prednisone. 3. Acute on chronic systolic heart failure with history of coronary artery status post PCI/stent of LAD and left circumflex artery: Most recent echo in September 2014 showed mild to moderate segmental systolic dysfunction EF 40%, moderate to severe concentric LVH, enlarged LA, mild MR, RVSP 33 mmHg. 10/25: As mentioned above follow-up cardiology. Patient might need outpatient stress test. 4. Suspected recent acute viral syndrome due to human metapneumovirus: In ED patient had acute bronchospasm. On bronchodilators, IV Solu-Medrol, incentive spirometry. Prescription given for DuoNeb nebulization. 5. Diabetes mellitus type II: Hold oral home regimen, continue home insulin regimen, ADA diet until midnight, accu checks with ISS. Patient has sufficient supply of insulin. Prescription given for Humalog insulin. 6. Hyperlipidemia: Continue home statin regimen. Triglycerides 131, Cholesterol 173, LDL Cholesterol 105, VLDL Cholesterol 26, HDL Cholesterol 42. High intensity statin. Prescription for atorvastatin 80 mg at at bedtime given. 7. Morbid Obesity: Weight loss and lifestyle changes encouraged. 8. Gout: continue patient home allopurinol regimen. 9 GERD: continue patient on PPI. 10. GEORGES/OHS: On BiPAP. Will need outpatient PFTs/sleep test 11 DVT prophylaxis: SCDs, heparin drip. Discharge medication reconciliation done. Discharge follow-up instructions completed. Discharge process discussed with the patient and all questions were answered to patient's satisfaction. Discharged home. Total time spent, exact 35 minutes on discharge meds reconciliation, examination, coordination of care with nurses and ancillary staff, review of imaging and blood test and discussion with the patient on follow-up instructions. Clinical Impression(s) from Imaging Studies Chest X-Ray 10/23/21 19:03 IMPRESSION: There are no acute findings. Physical Exam Narrative Patient was seen and examined in the morning. Patient blood pressure is high 198/135. He states his blood pressure goes high steroid from prednisone therefore IV Solu-Medrol discontinued. Patient was prescribed prednisone by PCP he has history of his smoking intermittently in late teens and early 20s but not more than 10 years. Denies history of chronic cough or smoking. He has sleep apnea After morning antihypertensive medications given, his blood pressure is on baseline, systolic 146/101. Physical exam General: Alert, Oriented x3, Cooperative, morbid obesity 46.6 kg/m? HEENT: While in short neck, atraumatic, PERRLA, EOMI, Normocephalic Oral: Deep oropharyngeal exam could not be well visualized. No Gingival or Mucosal Lesions/ Ulcerations Neck: Supple, No JVD, Negative Carotid Bruits Lungs: Air entry diminished in bilateral lung bases. Occasional bilateral wheezing but mostly clear. Cardiovascular: Regular rate, Regular Rhythm, Normal S1, Normal S2, No murmurs Abdomen: Bowel Sounds Present, Soft, Non Tender, Non-Distended : No renal angle tenderness. No suprapubic tenderness. Extremities: Shuttle edema bilateral ankle edema, Capillary Refill Less than 3 Seconds Skin: No rashes, No breakdown Musculoskeletal: No Tenderness to Palpation of Joints or Extremities Neurological: Cranial nerves II-XII grossly intact, DTR 2+/4 and Symmetrical, Neuro grossly intact Psych/Mental Status: Normal Affect, Appropriate Weight / BMI Weight Weight: 361 lb 1.875 oz Body Mass Index (BMI) 48.4 ABG / Lab / Microbiology Data Result Diagrams: 10/25/21 06:25 10/25/21 06:25 Laboratory: Laboratory Results - last 24 hr 10/24/21 16:41: POC Glucose 368 H 10/24/21 21:31: POC Glucose 200 H 10/25/21 06:25: WBC 8.1, RBC 5.26, Hgb 14.0, Hct 42.8, MCV 81.4, MCH 26.6 L, MCHC 32.7, RDW Std Deviation 40.6, RDW Coeff of Madhavi 14.0, Plt Count 230, MPV 10.5, Immature Gran % (Auto) 0.500, Neut % (Auto) 74.0 H, Lymph % (Auto) 16.2 L, [place] % (Auto) 9.2, Eos % (Auto) 0.0, Baso % (Auto) 0.1, Absolute Neuts (auto) 6.0, Absolute Lymphs (auto) 1.31, Nucleated RBC % 0 10/25/21 06:25: Sodium 129 L, Potassium 4.4, Chloride 96 L, Carbon Dioxide 26.0, Anion Gap 7, BUN 31 H, Creatinine 1.45 H, Estim Creat Clear Calc 69.29, Est GFR (MDRD) Af Amer 66, Est GFR (MDRD) Non-Af 54 L, BUN/Creatinine Ratio 21.4 H, Glucose 358 H, Calcium 8.6, Magnesium 2.1 10/25/21 08:14: POC Glucose 362 H 10/25/21 12:21: POC Glucose 369 H Microbiology: Microbiology 10/23/21 21:30 Sputum, Expectorated/Coughed Gram Stain - Final 10/23/21 21:30 Sputum, Expectorated/Coughed Respiratory Culture - Preliminary Alpha Hemolytic Streptococcus 10/23/21 22:55 Mucosa - Nasopharyngeal Respiratory Panel (PCR) - Final Human [place] 10/23/21 20:58 Urine, Clean Catch Legionella Antigen - Final 10/23/21 20:58 Urine, Clean Catch Streptococcus pneumoniae Antigen (M - Final Radiography Diagnostic Testing: Radiology Impression Echocardiogram 10/23/21 21:20 Interpretation Summary The estimated ejection fraction is 50 %. Grade #1 Diastolic Dysfunction RV systolic pressure estimated 30 mmhg No significant changes from prior echo Ordering Physician: Jewels Combs Referring Physician: DELLA JASMINE Performed By: Amy Nichols RDCS D/C Instructions Discharge Diet: Low fat / Low cholesterol, 1800 Calorie Control Diet and 2000 mg Sodium Diet Call your doctor if you observe: Fever of 101 or Higher, Coldness, Increased Pain, Numbness or Tingling, Change in Color, Inability to urinate, Inability to have a bowel movement, Shortness of breath, Dizziness, Fainting spells, Swelling in the ankles, Chest pain, Prolonged hiccupping, Increased palpitations (irregular heartbeat), Calf discomfort and Uncontrolled pain Meaningful Use Info Meaningful Use Diagnoses (Choose all that apply): None applicable and AMI AMI/Post PCI/Angioplasty Aspirin given w/in 24hrs of arrival?: Yes ASA at discharge?: Yes Statins at discharge?: Yes Levon/ARB at discharge?: Yes Beta Angle at discharge?: Yes Done w/ Acute NV measure.: Yes Discharge Plan Admission Admit Date/Time: 10/23/21 19:38 Primary Reason for Your Visit: Hypertensive emergency/non-STEMI Attending Provider: Shashi Nathan Primary Care Provider: Della Jasmine Consulting Providers: Mel Hartmann ; Idris Vila Discharge Orders/Prescriptions Prescriptions: New insulin lispro [Humalog KwikPen Insulin] 100 unit/mL Insulin Pen 25 unit subcut TIDAC Qty: 1 RF: 5 ipratropium-albuterol 0.5 mg-3 mg(2.5 mg base)/3 mL Solution For Nebulization 3 ml inhalation Q4HWA.RT Qty: 30 RF: 0 atorvastatin 80 mg tablet 80 mg PO QHS Qty: 30 RF: 2 Continued furosemide 40 MG tablet 40 mg PO DAILY RF: 0 lisinopril 20 MG tablet 20 mg PO BID RF: 0 clopidogrel 75 MG tablet 75 mg PO DAILY RF: 0 spironolactone 25 MG tablet 25 mg PO BID RF: 0 amlodipine 10 MG tablet 10 mg PO DAILY RF: 0 aspirin 81 MG tablet,chewable 81 mg PO DAILY RF: 0 allopurinol 100 MG tablet 400 mg PO DAILYCM RF: 0 oxycodone 5 MG tablet 7.5 mg PO 4X/DAY RF: 0 Tradjenta 5 MG tablet 5 mg PO DAILY RF: 0 carvedilol 25 MG tablet 25 mg PO BID Qty: 60 RF: 0 esomeprazole magnesium [Nexium] 20 MG capsule 20 mg PO BID RF: 0 Victoza 2-Kirby 0.6 MG/0.1 ML pen injector 19 mg SQ DAILY RF: 0 benzonatate 100 MG capsule 200 mg PO TID PRN PRN (Reason: Cough) Qty: 20 RF: 0 azelastine 137 mcg (0.1 %) aerosol,spray 2 spray intranasal BID Qty: 30 RF: 0 albuterol sulfate [Ventolin HFA] 90 mcg/actuation HFA aerosol inhaler 2 puff inhalation Q4H PRN PRN (Reason: Wheezing) Qty: 1 RF: 1 Changed Tresiba FlexTouch U-100 100 UNIT/ML insulin pen 100 unit SQ DAILY Qty: 1 RF: 5 Discontinued albuterol sulfate 1 INHALER inhaler 1 - 2 puff INHALATION Q4H PRN PRN (Reason: Wheezing) Qty: 1 RF: 0 prednisone 20 mg tablet 40 mg PO DAILY 5 Days Qty: 10 RF: 0 Referrals / Follow Up: Idris Vila DO [STAFF PHYSICIAN] - Within 1 Month (For PFT and sleep study. Morbid obesity. Possible restrictive lung disease/obesity hypoventilation syndrome) Della Jasmine DO [Primary Care Provider] - In 1 Week (Hypertensive emergency. Check blood pressure for still high systolic more than 140, can add hydralazine and isosorbide mononitrate) Scooter Douglas MD [STAFF PHYSICIAN] - Within 1 Month (For hypertensive emergency, right heart failure, diastolic heart failure) Disposition Disposition (needs filled in before D/C Order can be placed): Home, Self Care Charges/Coding Visit Charges Inpatient E&M: 28259 Disch Hosp
== END 2021-10-25 14:41 | disposition home or self-care (01) | DRG 199 ==
LOC: ED 19:26 → ICU 19:55 → PCU 10-24 16:46
PROVIDERS: Internal Medicine Interventional Cardiology; Admitting Provider Family Medicine; Emergency Provider Emergency Medicine; PCP Family Medicine; Visit Provider Internal Medicine
DX: I16.1 Hypertensive emergency (principal); I50.23 Acute on chronic systolic (congestive) heart failure; I21.A1 Myocardial infarction type 2; I11.0 Hypertensive heart disease with heart failure; E11.9 Type 2 diabetes mellitus without complications; E66.01 Morbid (severe) obesity due to excess calories; Z68.42 Body mass index [BMI] 45.0-49.9, adult; Z79.4 Long term (current) use of insulin; M10.9 Gout, unspecified; G47.33 Obstructive sleep apnea (adult) (pediatric); K21.9 Gastro-esophageal reflux disease without esophagitis; E78.5 Hyperlipidemia, unspecified; I25.10 Atherosclerotic heart disease of native coronary artery without angina pectoris; I25.2 Old myocardial infarction; I25.5 Ischemic cardiomyopathy; J10.1 Influenza due to other identified influenza virus with other respiratory manifestations; J21.1 Acute bronchiolitis due to human metapneumovirus; Z79.02 Long term (current) use of antithrombotics/antiplatelets; Z79.82 Long term (current) use of aspirin; Z91.19 Patient's noncompliance with other medical treatment and regimen; Z79.899 Other long term (current) drug therapy
CPT/HCPCS: 36415; 71045; 71046; 80048; 80053; 80061; 80076; 81002; 82962; 83735; 83880; 84145; 84484; 85025; 85610; 85730; 87070; 87205; 87428; 87449; 87633; 87641; 93005; 93306; 94640; 96374; 96375; 97802; 99251; 99282; 99285; Q9957; A4216; C8929; G0463; J1940

== ENCOUNTER → 2022-09-11 | Outpatient (CLI) | payer MEDICAID, SELFPAY ==
[2022-09-11 15:50] LABS: Absolute Lymphocyte Count 2.92 X10^3/uL (0.83-4.51); Absolute Neutrophil Count 3.8 X10^3/uL (2.0-7.7); Basophil# 0.07 X10^3/uL; Basophil% 0.9 % (0-1); Eosinophil# 0.17 X10^3/uL; Eosinophils% 2.2 % (0-5); Hematocrit 42.7 % (40-54); Lymphocyte # 2.92 X10^3/ul (0.83-4.51); Lymphocyte % 38.2 % (19-41); Mean Corp Hgb Conc 32.8 g/dL (32-36); Mean Corpuscular Hgb 26.5 pg (27.0-32.0); Mean Corpuscular Volume 80.9 fL (80-94); Mean Platelet Vol. 11.4 fl (6.2-12.0); Monocyte# 0.67 X10^3/uL; Monocyte% 8.8 % (0-10); NRBC Flagged by Analyzer 0 % (0-5); Neutrophil % 49.6 % (47-70); Platelet Count 211 K/mm3 (150-450); RBC Distribution Width CV 13.7 % (11.6-14.6); RBC Distribution Width SD 39.3 fl (35.1-43.9); Red Blood Count 5.28 M/mm3 (4.6-6.2); White Blood Count 7.7 K/mm3 (4.4-11.0)
[2022-09-11 16:51] LABS: Amphetamine Urine VISTA NEGATIVE (<1000 ng/mL); Barbiturate Urine VISTA NEGATIVE (< 200 ng/mL); Benzodiazepine Urine VISTA NEGATIVE (< 200 ng/mL); Cocaine Urine VISTA NEGATIVE (< 300 ng/mL); Ecstacy Urine VISTA NEGATIVE (< 500 ng/mL); Methadone Urine VISTA NEGATIVE (< 300 ng/mL); PCP Urine VISTA NEGATIVE (< 25 ng/mL); THC Urine VISTA POSITIVE (< 50 ng/mL); Vista UDS pH Range 7
[2022-09-11 17:33] LABS: ALB/GLOB Ratio 0.9 RATIO (0.9-2.4); AST(SGOT) 48 U/L (15-37); Alanine Aminotransfer ALT/SGPT 67 U/L (16-61); Albumin, Serum 3.5 g/dL (3.2-5.0); Alkaline Phosphatase 150 U/L (45-117); Anion Gap 7 (5-15); BUN 22 mg/dL (7-18); BUN/Creat Ratio 15.5 RATIO (10-20); Calcium,Total 9.2 mg/dL (8.5-10.1); Chloride 98 mmol/L (98-107); Creatinine, Serum 1.42 mg/dL (0.70-1.30); EST Glomerular Filtration Rate 55 mL/min (>60); Est Glom Filt Rate - Afr Amer 67 mL/min (>60); Globulin 4.1 g/dL (2.2-4.2); Glucose 296 mg/dL (74-106); PSA,Total - Annual Screen 0.54 ng/mL (0.00-4.00); Protein, Total 7.6 g/dL (6.4-8.2); Sodium Level 134 mmol/L (136-145)
[2022-09-11 18:11] LABS: Microalbumin:Creatinine Ratio 429.7 mg/g CRE (<30 mg/g CRE)
== END | disposition home or self-care (01) ==
LOC: LAB 15:00
PROVIDERS: PCP Family Medicine; Referring Provider Family Medicine; Visit Provider Family Medicine
DX: E11.65 Type 2 diabetes mellitus with hyperglycemia (principal); I10 Essential (primary) hypertension; Z12.5 Encounter for screening for malignant neoplasm of prostate; Z79.899 Other long term (current) drug therapy
CPT/HCPCS: 84153; 36415; 80053; 80307; 82043; 82570; 85025; G0103

== ENCOUNTER 2024-08-29 09:48 | Emergency (ER) | payer MEDICAID, SELFPAY ==
[2024-08-29] VITALS (11 sets, daily range): BP systolic 165–194; BP diastolic 80–143; PULSE 87–109; RESP 16–28; TEMP 36.6–36.9; O2SAT 94–99; BMI 45.2
[2024-08-29 10:56] LABS: Absolute Lymphocyte Count 2.16 X10^3/uL (0.83-4.51); Absolute Neutrophil Count 4.6 X10^3/uL (2.0-7.7); Basophil% 1.3 % (0-1); Eosinophil# 0.05 X10^3/uL; Eosinophils% 0.7 % (0-5); Hematocrit 45.6 % (40-54); Hemoglobin 14.6 g/dL (13.0-16.5); Lymphocyte # 2.16 X10^3/ul (0.83-4.51); Lymphocyte % 28.5 % (19-41); Mean Corpuscular Hgb 25.6 pg (27.0-32.0); Mean Corpuscular Volume 79.9 fL (80-94); Monocyte# 0.62 X10^3/uL; Monocyte% 8.2 % (0-10); NRBC Flagged by Analyzer 0 % (0-5); Neutrophil # 4.62 X10^3/uL (2.7-7.7); Platelet Count 270 K/mm3 (150-450); RBC Distribution Width CV 14.6 % (11.6-14.6); RBC Distribution Width SD 41.4 fl (35.1-43.9); Red Blood Count 5.71 M/mm3 (4.6-6.2); White Blood Count 7.6 K/mm3 (4.4-11.0)
[2024-08-29 11:10] LABS: Anion Gap 6 (5-15); BUN 11 mg/dL (7-18); BUN/Creat Ratio 9.5 RATIO (10-20); Calcium,Total 9.2 mg/dL (8.5-10.1); Chloride 108 mmol/L (98-107); Creatinine, Serum 1.16 mg/dL (0.70-1.30); EST Glomerular Filtration Rate 70 mL/min (>60); Est Glom Filt Rate - Afr Amer 84 mL/min (>60); Glucose 181 mg/dL (74-106); Potassium 4.1 mmol/L (3.5-5.1); Sodium Level 139 mmol/L (136-145)
--- NOTE | 2024-08-29 11:26 | RAD_ITS ---
PROCEDURE: CHEST 1 VIEW (PORTABLE) REASON FOR EXAM: Cough and shortness of breath. TECHNIQUE: Frontal view of the chest. COMPARISON: 10/23/2021 RAD/Chest 1 View (Portable) IMPRESSION: Lungs are somewhat hypoinflated, with mild areas left lower lung atelectasis se en. Can not exclude the presence of pneumonitis at the left lower lung, however. Also, given the limitations of this exam, can not exclude a mild degree of inte rstitial pulmonary edema. Probable small left pleural effusion. No right pleural effusion is evident. No pneumothorax is seen. The cardiomediastinal silhouette is stable, without evidence of cardiomegaly. Reading Location: [id number]
--- NOTE | 2024-08-29 11:40 | ED.RN ---
PT BROUGHT BACKN FROM WAITING AREA, FULL ED, PROTOCOLS STARTED IN TRIAGE WITH IV, LAB, CHEST X-RAY, WAITING FOR DR TO SEE PT. PT DENIES ANY CHEST PAIN, STATES HE HAD SOME INTERMITTENT SOB AND DIFFICULTY CLEARING SECRETIONS. FAMILY AT HOME WAS SICK.
--- NOTE | 2024-08-29 12:17 | ED.VIS.DYS ---
HPI History of Present Illness Chief Complaint: Shortness of Breath Narrative Narrative: 53-year-old male past medical history of CHF, hypertension, chronic renal insufficiency, diabetes, presents with upper respiratory infection type symptoms and shortness of breath that has had for the last 8 days. He states he gets like this approximately every 3 years. The last time he was in the emergency department he received an albuterol inhaler and DuoNeb aerosolized treatments, and was prescribed these and he improved. He states over the last 8 days he has had coughing fits to the point where he gets chest pain from coughing so hard. His blood pressure has been under control and is currently being taken care of by his primary care provider. He has been losing weight as well. Is to the point where they took him off some of his medications for his high blood pressure. He presents because of the shortness of breath. He still has an occasional cough. No recent fevers or chills. [facility] Medical History Hypertensive emergency Congestive heart failure (CHF) GEORGES (obstructive sleep apnea) Diabetes Congestive heart failure (CHF) Hypertension Obesity HLD (hyperlipidemia) Cardiomyopathy CAD (coronary artery disease) Systolic CHF, chronic Morbid obesity with BMI of 40.0-44.9, adult Home Medications ?Medication ?Instructions ?Recorded ?Last Taken ?Type amlodipine 10 mg tablet 10 mg PO DAILY 12/01/14 08/29/24 History aspirin 81 mg chewable tablet 81 mg PO DAILY 12/01/14 10/20/15 History clopidogrel 75 mg tablet 75 mg PO DAILY 12/01/14 08/29/24 History lisinopril 20 mg tablet 20 mg PO BID 12/01/14 08/29/24 History allopurinol 100 mg tablet 400 mg PO DAILYCM 05/24/15 08/28/24 History linagliptin 5 mg tablet (Tradjenta) 5 mg PO DAILY 10/20/15 08/29/24 History oxycodone 5 mg tablet 7.5 mg PO 4X/DAY 10/20/15 10/20/15 History carvedilol 25 mg tablet 25 mg PO BID ##60 10/21/15 08/29/24 Rx esomeprazole magnesium 20 mg 20 mg PO BID 10/21/17 08/29/24 History capsule,delayed release (Nexium) albuterol sulfate 90 mcg/actuation 2 puff inhalation Q4H PRN PRN 10/22/21 Unknown Rx aerosol inhaler (Ventolin HFA) Wheezing #1 device atorvastatin 80 mg tablet 80 mg PO QHS #30 tabs 10/25/21 08/28/24 Rx insulin degludec 100 unit/mL (3 100 unit SQ DAILY #1 mL 10/25/21 Unknown Rx mL) subcutaneous pen (Tresiba FlexTouch U-100 insulin) insulin lispro 100 unit/mL 25 unit (0.25 mL) subcut TID #15 mL 10/25/21 Unknown Rx subcutaneous pen ipratropium 0.5 mg-albuterol 3 mg 3 ml inhalation Q4H shortness of 10/25/21 Unknown Rx (2.5 mg base)/3 mL nebulization breath 30 days #180 mL soln insulin degludec 200 unit/mL (3 unit subcut 08/29/24 Unknown History mL) subcutaneous pen (Tresiba FlexTouch U-200 insulin) ipratropium 0.5 mg-albuterol 3 mg 3 ml inhalation Q6H PRN shortness 08/29/24 Unknown Rx (2.5 mg base)/3 mL nebulization of breath #90 mL soln Allergy/AdvReac Type Severity Reaction Status Date / Time Penicillins Allergy Intermediate Rash Verified 08/29/24 11:43 hydrocodone bitartrate (From Allergy Mild Itching Verified 08/29/24 11:43 Vicodin) ciprofloxacin Allergy PT UNABLE Verified 08/29/24 11:43 TO RESPOND-NEEDS F/U Family History Mother Heart disease Hypertension Father Heart disease Hypertension Surgical History S/P hernia repair Coronary angioplasty status S/P PTCA (percutaneous transluminal coronary angioplasty) Social History household members: spouse Smoking Status: Never smoker Smokeless tobacco user: other alcohol intake: never substance use type: does not use ROS ROS ED ROS Narrative Review of systems positive for cough, no fever or chills. Positive shortness of breath. No chest pain. Positive chest wall pain in the lower ribs when coughing. Positive weight loss. Recently started on Mounjaro. EXAM Physical Exam Narrative Exam Narrative: Afebrile. Vital signs noted. Cardiovascular examination reveals a regular rate and rhythm. Lungs are clear to auscultation bilaterally, there is slightly prolonged expiratory phase. Examination limited by body habitus. Abdomen soft, nontender, and obese without guarding or rebound. Neurological examination nonfocal and nonlateralizing. Const Vital Signs: 08/29/24 09:49 08/29/24 10:01 08/29/24 10:01 Temperature 98.5 F Temperature Source Oral Pulse Rate 109 H Respiratory Rate 20 H Respiratory Effort Respiratory Depth Respiratory Pattern Blood Pressure 185/129 H Blood Pressure Mean 147 Pulse Ox 95 95 95 Oxygen Delivery Method Room Air Room Air Room Air 08/29/24 11:00 08/29/24 11:38 08/29/24 11:43 Temperature 98.2 F Temperature Source Oral Pulse Rate 95 Respiratory Rate 16 Respiratory Effort Normal Normal Respiratory Depth Normal Respiratory Pattern Normal Blood Pressure 193/143 H Blood Pressure Mean 159 Pulse Ox 94 Oxygen Delivery Method Room Air Room Air 08/29/24 12:25 08/29/24 12:48 08/29/24 12:56 Temperature 98.4 F Temperature Source Oral Pulse Rate 96 99 88 Respiratory Rate 16 17 20 H Respiratory Effort Respiratory Depth Respiratory Pattern Normal Blood Pressure 180/136 H 194/134 H Blood Pressure Mean 150 154 Pulse Ox 97 95 Oxygen Delivery Method Room Air Room Air 08/29/24 13:00 08/29/24 14:00 08/29/24 14:36 Temperature 98.4 F Temperature Source Oral Pulse Rate 91 87 Respiratory Rate 20 H 28 H Respiratory Effort Respiratory Depth Respiratory Pattern Blood Pressure 182/133 H 165/116 H 190/80 H Blood Pressure Mean 149 132 116 Pulse Ox 96 95 Oxygen Delivery Method Room Air Room Air MDM MDM MDM Narrative Medical decision making narrative: Differential diagnosis includes but not limited to congestive heart failure versus pneumonia versus pneumothorax versus bronchitis. I have very low suspicion for pulmonary embolism. Protocol laboratories and workup was started. I reviewed his laboratory work and he has normal white count of 7.6, hemoglobin 14.6 and platelet count normal at 270. Chloride slightly elevated at 108 which I think is nonspecific with BUN of 11 and creatinine 1.16. Glucose elevated at 181 consistent with his diabetes but he has normal anion gap of 6. Chest x-ray interpreted by myself independently in 1 view shows atelectasis in the left base, but no obvious rib fracture. I reviewed the radiology report which comments on atelectasis versus pneumonitis. As he does not have a white count or fever here, I do not feel that he requires antibiotics. He requested nebulizer treatments be written for him. He was given 1 albuterol aerosolized treatment here in the emergency department. He will keep a track of his blood pressures as well. I feel he can use the nebulizer treatments and follow-up with his primary care provider. Return instructions to the emergency department were reviewed. Disposition is discharged home in stable condition. Of note, patient did have elevated blood pressure and he remained asymptomatic. I dosed him with hydralazine and observed him. Repeat examination after aerosolized treatment shows him ambulatory and breathing well. In discussion with the patient, he usually takes his blood pressure once a week. On his last visit his blood pressure was 130 systolic at his primary care provider's office. He states that last week when he took it it was elevated at 155 systolic. I did discuss the patient with his primary care provider, Dr. Jasmine. He states that he will write the prescriptions for the patient's additional antihypertensives that he should rock picker at the pharmacy. He already has a follow-up appointment. I reviewed return instructions with the patient's including sustained blood pressure over 200 systolic, symptomatic elevated blood pressure such as chest pain and shortness of breath and/or headache. Repeat blood pressure is 174 systolic. Disposition is discharged home in stable condition. History & Record Review Discussion w/independent historian: Patient Additional record(s) reviewed:: Prior ED visit Lab Data Attestation: I reviewed the patient's lab results. Labs: Laboratory Results - last 24 hr 08/29/24 10:45 WBC 7.6 RBC 5.71 Hgb 14.6 Hct 45.6 MCV 79.9 L MCH 25.6 L MCHC 32.0 RDW Std Deviation 41.4 RDW Coeff of Madhavi 14.6 Plt Count 270 MPV 11.0 Immature Gran % (Auto) 0.300 Neut % (Auto) 61.0 Lymph % (Auto) 28.5 Worth % (Auto) 8.2 Eos % (Auto) 0.7 Baso % (Auto) 1.3 H Absolute Neuts (auto) 4.6 Absolute Lymphs (auto) 2.16 Nucleated RBC % 0 Sodium 139 Potassium 4.1 Chloride 108 H Carbon Dioxide 25.0 Anion Gap 6 BUN 11 Creatinine 1.16 Estim Creat Clear Calc 116.60 Est GFR (MDRD) Af Amer 84 Est GFR (MDRD) Non-Af 70 BUN/Creatinine Ratio 9.5 L Glucose 181 H Calcium 9.2 Radiography Chest X-Ray - ED: 1 View, Read by ED Physician and Read by Radiologist Diagnostic Testing: Clinical Impression(s) from Imaging Studies Chest X-Ray 08/29/24 11:26 IMPRESSION: Lungs are somewhat hypoinflated, with mild areas left lower lung atelectasis seen. Can not exclude the presence of pneumonitis at the left lower lung, however. Also, given the limitations of this exam, can not exclude a mild degree of interstitial pulmonary edema. Probable small left pleural effusion. No right pleural effusion is evident. No pneumothorax is seen. The cardiomediastinal silhouette is stable, without evidence of cardiomegaly. Reading Location: [address] Discharge Plan Triage Chief Complaint: Shortness of Breath Other Complaint: Chest Other ED Provider: Kelby Villafuerte Dx/Rx/DC Orders Clinical Impression: Bronchitis, Hypertension Instructions: ED Bronchitis, No Antibiotic (Adult), ED Chest Wall Pain, Costochondritis, ED High Blood Pressure Hypertension Prescriptions: New ipratropium-albuterol 0.5 mg-3 mg(2.5 mg base)/3 mL solution for nebulization 3 ml inhalation Q6H PRN (Reason: shortness of breath) Qty: 90 0RF No Action lisinopril 20 MG tablet 20 mg PO BID Patient Comments: BLOOD PRESSURE clopidogrel 75 MG tablet 75 mg PO DAILY Patient Comments: blood thinner amlodipine 10 MG tablet 10 mg PO DAILY Patient Comments: BLOOD PRESSURE aspirin 81 MG tablet,chewable 81 mg PO DAILY Patient Comments: BLOOD THINNER/HEART HEALTH allopurinol 100 MG tablet 400 mg PO DAILYCM Patient Comments: gout oxycodone 5 MG tablet 7.5 mg PO 4X/DAY Patient Comments: pain Tradjenta 5 MG tablet 5 mg PO DAILY Patient Comments: diabetes carvedilol 25 MG tablet 25 mg PO BID Qty: 60 0RF Patient Comments: blood pressure/heart esomeprazole magnesium [Nexium] 20 MG capsule 20 mg PO BID albuterol sulfate [Ventolin HFA] 90 mcg/actuation HFA aerosol inhaler 2 puff inhalation Q4H PRN PRN (Reason: Wheezing) Qty: 1 1RF Tresiba FlexTouch U-100 100 UNIT/ML insulin pen 100 unit SQ DAILY Qty: 1 5RF atorvastatin 80 mg tablet 80 mg PO QHS Qty: 30 0RF ipratropium-albuterol 0.5 mg-3 mg(2.5 mg base)/3 mL solution for nebulization 3 ml inhalation Q4H 30 Days Qty: 180 0RF insulin lispro 100 unit/mL insulin pen 25 unit subcut TID Qty: 15 0RF insulin degludec [Tresiba FlexTouch U-200] 200 unit/mL (3 mL) insulin pen subcut Primary Care Provider: Darion Jasmine Referrals: Darion Jasmine DO [Primary Care Provider] - 3-5 Days Activity Restrictions/Additional Instructions: Return to the emergency department with consistent systolic blood pressure readings over 200. supervisor gelatin plant the medications that your primary care provider called in for you at your local pharmacy. Follow-up with him regarding your blood pressure. Return with chest pain, headache, or any new or worsening symptoms. Print Language: Belizean Disposition Disposition: Home, Self Care
[2024-08-29] MEDS: hydrALAZINE 20 MG/ML Vial 10 MG IV ×2 (12:22→14:28)
[2024-08-29] MEDS: Albuterol 2.5 MG/3 ML VIAL.NEB. INHALATION (12:48)
== END 2024-08-29 16:10 | disposition home or self-care (01) ==
LOC: ED 12:15
PROVIDERS: Emergency Provider Emergency Medicine; PCP Family Medicine; Visit Provider Emergency Medicine
DX: J40 Bronchitis, not specified as acute or chronic (principal); I13.0 Hypertensive heart and chronic kidney disease with heart failure and stage 1 through stage 4 chronic kidney disease, or unspecified chronic kidney disease; I50.22 Chronic systolic (congestive) heart failure; E11.22 Type 2 diabetes mellitus with diabetic chronic kidney disease; Z79.4 Long term (current) use of insulin; J98.11 Atelectasis; N18.9 Chronic kidney disease, unspecified; E78.5 Hyperlipidemia, unspecified; I25.10 Atherosclerotic heart disease of native coronary artery without angina pectoris; G47.33 Obstructive sleep apnea (adult) (pediatric); Z88.1 Allergy status to other antibiotic agents; Z88.0 Allergy status to penicillin; Z79.82 Long term (current) use of aspirin; Z79.02 Long term (current) use of antithrombotics/antiplatelets; Z79.899 Other long term (current) drug therapy
CPT/HCPCS: 71045; 80048; 85025; 94640; 94760; 96374; 96376; 99284; A4216

== ENCOUNTER → 2024-09-18 | Outpatient (CLI) | payer MEDICAID, SELFPAY ==
[2024-09-18 21:22] LABS: AST(SGOT) 26 U/L (<=37); Alanine Aminotransfer ALT/SGPT 30 U/L (<=46); Albumin, Serum 4.5 g/dL (3.5-5.0); Alkaline Phosphatase 101 U/L (40-129); Globulin 3.8 g/dL (2.2-4.2); PSA,Total - Annual Screen 0.69 ng/mL (0.02-4.00); Protein, Total 8.3 g/dL (5.9-8.4); Total Bilirubin 0.57 mg/dL (0.00-1.30)
[2024-09-18 21:29] LABS: Amphetamine Urine NEGATIVE (<1000 ng/mL); Barbiturate Urine NEGATIVE (< 200 ng/mL); Benzodiazepine Urine NEGATIVE (< 200 ng/mL); Buprenorphine Urine NEGATIVE (< 200 ng/mL); Cocaine Urine NEGATIVE (< 300 ng/mL); Fentanyl, Urine NEGATIVE; Methadone Urine NEGATIVE (< 300 ng/mL); Opiates Urine NEGATIVE (< 300 ng/mL); Oxycodone, Urine PRESUMTIVE POSITIVE (< 100 ng/mL); PCP Urine NEGATIVE (< 25 ng/mL); THC Urine PREUMTIVE POSITIVE (< 50 ng/mL)
[2024-09-18 21:50] LABS: Cholesterol 246 mg/dL (<=200); High Density Lipoprotein 44 mg/dL; Low Density Lipoprotein Calc. 132 mg/dL; Triglycerides 349 mg/dL; Very Low Density Lipoprotein 70 mg/dL (5-40)
[2024-09-18 21:52] LABS: Microalbumin:Creatinine Ratio 4168.1 mg/g CRE; Uric Acid 8.3 mg/dL (3.5-7.2)
== END | disposition home or self-care (01) ==
PROVIDERS: PCP Family Medicine; Referring Provider Family Medicine; Visit Provider Family Medicine
DX: E11.65 Type 2 diabetes mellitus with hyperglycemia (principal); E11.22 Type 2 diabetes mellitus with diabetic chronic kidney disease; N18.31 Chronic kidney disease, stage 3a; I25.10 Atherosclerotic heart disease of native coronary artery without angina pectoris; I12.9 Hypertensive chronic kidney disease with stage 1 through stage 4 chronic kidney disease, or unspecified chronic kidney disease; M10.9 Gout, unspecified; Z79.899 Other long term (current) drug therapy; Z12.5 Encounter for screening for malignant neoplasm of prostate
CPT/HCPCS: 84153; 36415; 80061; 80076; 80307; 82043; 82570; 84443; 84550; G0103

== ENCOUNTER 2024-11-13 11:18 | Emergency (ER) | payer MEDICAID, SELFPAY ==
[2024-11-13 11:19] VITALS: BP 170/115; PULSE 78; RESP 18; TEMP 36.9; O2SAT 99; BMI 44.4
--- NOTE | 2024-11-13 12:59 | ED.VIS.LOWEX ---
HPI History of Present Illness Chief Complaint: Lower Extremity Injury Informant: patient Narrative Narrative: Through history on left swelling left lateral ankle. History of gout 2 years ago in his toe. Using ibuprofen with improved however come back. He is on allopurinol. He is diabetic. Denies history of kidney injuries. GI issues had ultrasounds today along with labs. Does not know results. Denies fevers. Prior similar symptoms: No PFSH PFSH Medical History Diverticulosis Diverticulosis of colon Primary erectile dysfunction Gout LVH (left ventricular hypertrophy) Stage 3 chronic kidney disease Hypertensive emergency Congestive heart failure (CHF) GEORGES (obstructive sleep apnea) Diabetes Congestive heart failure (CHF) Hypertension Obesity HLD (hyperlipidemia) Cardiomyopathy CAD (coronary artery disease) Systolic CHF, chronic Morbid obesity with BMI of 40.0-44.9, adult Home Medications ?Medication ?Instructions ?Recorded ?Last Taken ?Type amlodipine 10 mg tablet 10 mg PO DAILY 12/01/14 08/29/24 History clopidogrel 75 mg tablet 75 mg PO DAILY 12/01/14 08/29/24 History lisinopril 20 mg tablet 20 mg PO BID 12/01/14 08/29/24 History linagliptin 5 mg tablet (Tradjenta) 5 mg PO DAILY 10/20/15 08/29/24 History oxycodone 5 mg tablet 7.5 mg PO 4X/DAY 10/20/15 10/20/15 History albuterol sulfate 90 mcg/actuation 2 puff inhalation Q4H PRN PRN 10/22/21 Unknown Rx aerosol inhaler (Ventolin HFA) Wheezing #1 device insulin lispro 100 unit/mL 25 unit (0.25 mL) subcut TID #15 mL 10/25/21 Unknown Rx subcutaneous pen insulin degludec 200 unit/mL (3 unit subcut 08/29/24 Unknown History mL) subcutaneous pen (Tresiba FlexTouch U-200 insulin) ipratropium 0.5 mg-albuterol 3 mg 3 ml inhalation Q6H PRN shortness 08/29/24 Unknown Rx (2.5 mg base)/3 mL nebulization of breath #90 mL soln allopurinol 100 mg tablet 300 mg PO DAILYCM 10/02/24 Unknown History aspirin 81 mg tablet,delayed 81 mg PO QDAY 10/02/24 Unknown History release atorvastatin 80 mg tablet 40 mg PO QHS 10/02/24 Unknown History benzonatate 200 mg capsule 200 mg PO BID-TID PRN 10/02/24 Unknown History carvedilol 25 mg tablet 12.5 mg PO BID 10/02/24 Unknown History cholecalciferol (vitamin D3) 125 125 mcg PO QDAY 10/02/24 Unknown History mcg (5,000 unit) capsule (D3-5000) hydrochlorothiazide 25 mg tablet 25 mg PO QDAY 10/02/24 Unknown History sildenafil 25 mg tablet 20 mg PO .2-5 tabs daily PRN 10/02/24 Unknown History tadalafil 20 mg tablet 20 mg PO QDAY PRN 10/02/24 Unknown History bismuth subsalicylate 262 mg/15 mL 524 mg PO Q30-60M PRN 10/16/24 Unknown History oral suspension (Pepto-Bismol) esomeprazole magnesium 20 mg 40 mg PO QDAY 10/16/24 Unknown History capsule,delayed release (Nexium) indomethacin 25 mg capsule 25 mg PO BID PRN pain #20 caps 11/13/24 Unknown Rx Allergy/AdvReac Type Severity Reaction Status Date / Time metformin Allergy Intermediate NEEDS Verified 11/13/24 11:21 FOLLOW-UP Penicillins Allergy Intermediate Rash Verified 11/13/24 11:21 hydrocodone bitartrate (From Allergy Mild Itching Verified 11/13/24 11:21 Vicodin) ciprofloxacin Allergy PT UNABLE Verified 11/13/24 11:21 TO RESPOND-NEEDS F/U omeprazole AdvReac Mild doesn't Verified 11/13/24 11:21 work ranitidine (From Zantac) AdvReac Mild ineffective Verified 11/13/24 11:21 Family History Mother Heart disease Hypertension Diabetes CAD (coronary artery disease) CVA (cerebral vascular accident) Father Heart disease Hypertension Sister Diabetes CAD (coronary artery disease) Hypertension Surgical History History of heart artery stent S/P hernia repair Coronary angioplasty status S/P PTCA (percutaneous transluminal coronary angioplasty) Social History household members: spouse Smoking Status: Former smoker Smokeless tobacco user: other alcohol intake: current alcohol intake frequency: holidays/special occasions only substance use type: does not use ROS ROS ED Constitutional Constitutional ED: Denies chills, fever(s) or sweats ENT ENT ED: Denies sore throat Cardiovascular Cardiovascular: Denies chest pain, leg edema, palpitations or racing heartbeat Respiratory/Chest Respiratory/Chest: Denies cough, dyspnea or dyspnea on exertion Gastrointestinal Gastrointestinal: Denies abdominal pain, diarrhea, nausea or vomiting Genitourinary Genitourinary ED: Denies dysuria, hematuria or urinary frequency Musculoskeletal Musculoskeletal: Reports extremity pain; Denies back pain or neck pain Integumentary Denies rash or wounds Neurologic Neurologic: Denies headache(s), paresthesias or weakness EXAM Physical Exam Const Vital Signs: 11/13/24 11:19 11/13/24 13:21 11/13/24 13:47 Temperature 98.4 F 98 F Temperature Source Oral Pulse Rate 78 78 65 Respiratory Rate 18 18 14 Blood Pressure 170/115 H 149/101 H Blood Pressure Mean 133 117 Pulse Ox 99 95 100 Oxygen Delivery Method Room Air Positive well nourished and well developed General Appearance ED: well developed and NAD HEENT Reports moist mucous membranes normocephalic and atraumatic Eyes General Eye ED: Yes normal appearance of both eyes Neck full ROM Chest Wall Chest: Negative for tenderness Resp normal respiratory effort and normal air movement Effort and Inspection: symmetric chest movement; Negative for respiratory distress Cardio regular rate, regular rhythm and no murmurs Peripheral Pulses: pulses 2+ throughout GI normal to inspection, nondistended, normoactive bowel sounds and non-tender Palpation: Negative for guarding or rebound tenderness present Extremity Extremity Narrative: Left lower extremity: No knee tenderness. Ankle swelling laterally tender posterior to the lateral malleolus with swelling. No pain with short arc movement. No foot tenderness. General Extremety ED: Yes edema and tenderness General Extremity: edema Neuro oriented x3 and no sensory deficits noted Sensorium / Orientation: awake and alert Skin no rashes or lesions noted and no wounds MDM MDM MDM Narrative Medical decision making narrative: Interventions / MDM: Differential diagnosis: Arthralgia, history of gout Diagnosis considered but do not suspect: No clinical septic joint My EKG interpretation: N/A Imaging independently reviewed and interpreted by myself: 3 view left ankle x-ray: Arthritic changes noted. No fracture or dislocation. External documents reviewed: N/A Test considered but not ordered:N/A ED course: History of gout nontraumatic swelling. No clinical septic joint. On and off symptoms for 3 weeks. X-ray ordered. He declines any medicines in the ED. X-ray with arthritic changes. I will start him on Indocin to use as needed he declines Levon wrap. He we will hold his ibuprofen. Outpatient follow-up. All questions answered. Re-evaluation: stable Disposition discussed with patient/family/significant other: Patient Case discussed with consulting clinician: N/A This note was generated with [employer] dictation software. It may contain incorrect words, spelling, and punctuation that were not noted in checking the note before signing. 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 Soft tissue swelling is noted at the lateral malleolus. Reading Location: [facility] Discharge Plan Triage Chief Complaint: Lower Extremity Injury ED Provider: Narciso Andino Dx/Rx/DC Orders Clinical Impression: Ankle pain, left, Hx of gout Instructions: ED Arthralgia, ED Gout Diet Prescriptions: New indomethacin 25 mg capsule 25 mg PO BID PRN (Reason: pain) Qty: 20 0RF Rx Instructions: administer with food or milk No Action atorvastatin 80 mg tablet 40 mg PO QHS benzonatate 200 mg capsule 200 mg PO BID-TID PRN carvedilol 25 mg tablet 12.5 mg PO BID Patient Comments: blood pressure/heart hydrochlorothiazide 25 mg tablet 25 mg PO QDAY sildenafil 25 mg tablet 20 mg PO .2-5 tabs daily PRN Rx Instructions: administer 30 minutes to 4 hours before activity tadalafil 20 mg tablet 20 mg PO QDAY PRN Rx Instructions: administer approximately 30min before sexual activity; do not use more than 1 dose per 24hrs aspirin 81 mg tablet,delayed release (DR/EC) 81 mg PO QDAY cholecalciferol (vitamin D3) [D3-5000] 125 mcg (5,000 unit) capsule 125 mcg PO QDAY bismuth subsalicylate [Pepto-Bismol] 262 mg/15 mL suspension 524 mg PO Q30-60M PRN Rx Instructions: do not exceed 8 doses in a 24 hour period lisinopril 20 MG tablet 20 mg PO BID Patient Comments: BLOOD PRESSURE clopidogrel 75 MG tablet 75 mg PO DAILY Patient Comments: blood thinner amlodipine 10 MG tablet 10 mg PO DAILY Patient Comments: BLOOD PRESSURE allopurinol 100 mg tablet 300 mg PO DAILYCM Patient Comments: gout oxycodone 5 MG tablet 7.5 mg PO 4X/DAY Patient Comments: pain Tradjenta 5 MG tablet 5 mg PO DAILY Patient Comments: diabetes esomeprazole magnesium [Nexium] 20 mg capsule,delayed release(DR/EC) 40 mg PO QDAY albuterol sulfate [Ventolin HFA] 90 mcg/actuation HFA aerosol inhaler 2 puff inhalation Q4H PRN PRN (Reason: Wheezing) Qty: 1 1RF insulin lispro 100 unit/mL insulin pen 25 unit subcut TID Qty: 15 0RF insulin degludec [Tresiba FlexTouch U-200] 200 unit/mL (3 mL) insulin pen subcut ipratropium-albuterol 0.5 mg-3 mg(2.5 mg base)/3 mL solution for nebulization 3 ml inhalation Q6H PRN (Reason: shortness of breath) Qty: 90 0RF Primary Care Provider: Darion Jasmine Referrals: Darion Jasmine DO [Primary Care Provider] - Activity Restrictions/Additional Instructions: Left ankle x-ray arthritic changes. Hold your ibuprofen. Use Indocin as prescribed as needed. Continue your allopurinol. Follow-up with your doctor. Print Language: Malagasy Disposition Disposition: Home, Self Care Discharge Date/Time: 11/13/24 13:51
--- NOTE | 2024-11-13 13:00 | RAD_ITS ---
PROCEDURE: ANKLE MIN 3 VIEWS 11/13/2024 REASON FOR EXAM: PAIN TECHNIQUE: Three views of the left ankle COMPARISON: None FINDINGS: No acute fracture or dislocation is identified. 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 The ankle mortise is not widened. Benign-appearing calcaneal spurs are noted. There is no visible radiopaque foreign body. Soft tissue swelling is noted at the lateral malleolus. 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 Soft tissue swelling is noted at the lateral malleolus. Reading Location: [facility]
[2024-11-13 13:21] VITALS: PULSE 78; RESP 18; O2SAT 95
[2024-11-13 13:47] VITALS: BP 149/101; PULSE 65; RESP 14; TEMP 36.6; O2SAT 100
== END 2024-11-13 13:51 | disposition home or self-care (01) ==
PROVIDERS: Emergency Provider Emergency Medicine; PCP Family Medicine; Visit Provider Emergency Medicine
DX: M25.572 Pain in left ankle and joints of left foot (principal); I13.0 Hypertensive heart and chronic kidney disease with heart failure and stage 1 through stage 4 chronic kidney disease, or unspecified chronic kidney disease; I50.22 Chronic systolic (congestive) heart failure; E11.22 Type 2 diabetes mellitus with diabetic chronic kidney disease; Z79.4 Long term (current) use of insulin; N18.30 Chronic kidney disease, stage 3 unspecified; M10.9 Gout, unspecified; M19.072 Primary osteoarthritis, left ankle and foot; E78.5 Hyperlipidemia, unspecified; I25.10 Atherosclerotic heart disease of native coronary artery without angina pectoris; G47.33 Obstructive sleep apnea (adult) (pediatric); K76.0 Fatty (change of) liver, not elsewhere classified; R19.7 Diarrhea, unspecified; Z95.1 Presence of aortocoronary bypass graft; Z79.02 Long term (current) use of antithrombotics/antiplatelets; Z79.82 Long term (current) use of aspirin; Z79.899 Other long term (current) drug therapy; Z87.891 Personal history of nicotine dependence
CPT/HCPCS: 73610; 76705; 86704; 86706; 86708; 86803; 87340; 99282

== ENCOUNTER → 2024-11-13 | Outpatient (CLI) | payer MEDICAID, SELFPAY ==
--- NOTE | 2024-11-13 10:06 | US_ITS ---
PROCEDURE: ABDOMEN LIMITED (USABDL), 11/13/2024 REASON FOR EXAM: LIVER STEATOSIS COMPARISON: None FINDINGS: Exam limited by shadowing bowel gas as well as soft tissue attenuation and difficulty penetrating the echogenic liver. Liver: Markedly echogenic likely reflecting steatosis. Probable focal fatty sparing along the gallbladder fossa. 19.8 cm in length. Gallbladder: Physiologically distended. No visualized stones, sludge, wall thickening or pericholecystic fluid. Reportedly, sonographic Negron's was negative. Biliary tree: Unremarkable. CBD measures 3 mm. Pancreas: Partially obscured by shadowing bowel gas, grossly unremarkable as visualized. Right kidney: Cysts up to 1.5 x 1.4 x 1.0 cm in the interpolar region. 12.8 cm in length. Other: No visualized free fluid. US/Abdomen Limited IMPRESSION: 1. Hepatomegaly and appearance of the hepatic parenchyma which is typically ass ociated with hepatic steatosis. Correlate with clinical and laboratory evidence of chronic liver disease and consider ultrasou nd elastography to detect/quantify fibrosis. 2. Additional description as above. Reading Location: [id number]
[2024-11-13 12:02] LABS: Hepatitis B Surface Antibody Nonreactive; Hepatitis B Surface Antigen Nonreactive (Nonreactive); Hepatitis C Antibody Nonreactive (Nonreactive)
[2024-11-14 05:06] LABS: Hepatitis A AB, Total Negative (Negative); Hepatitis B Core Ab Total Negative (Negative)
== END | disposition home or self-care (01) ==
PROVIDERS: PCP Family Medicine; Referring Provider Nurse Practitioner Acute Care; Visit Provider Nurse Practitioner Acute Care
DX: K76.0 Fatty (change of) liver, not elsewhere classified (principal); E11.9 Type 2 diabetes mellitus without complications; R19.7 Diarrhea, unspecified
CPT/HCPCS: 76705; 86704; 86706; 86708; 86803; 87340

== ENCOUNTER 2025-02-20 10:29 | Day surgery (SDC) | payer MEDICAID, SELFPAY ==
--- NOTE | 2025-02-14 11:19 | PAT.ANESEVAL ---
Pre-Assessment Diagnosis/Proposed Procedure Planned Operative Procedure(s): EGD, COLONOSCOPY Anesthesia History Anesthesia History - recruitment consultant: Anesthesia History - recruitment consultant Hx Hospitalization No 02/14/25 09:37 Any Problems With Anesthesia No 02/14/25 09:37 Cholinesterase deficiency No 02/14/25 09:37 You/Your Family Experience No 02/14/25 09:37 fever (hyperthermia) with Relationship Recent Exposure to Contagious No 05/09/14 04:55 Disease Does patient have nerve No 02/14/25 09:37 stimulator Patient instructed to have device shut off --Does patient have Pacemaker or ICD? When Was Last Pacemaker Check QUESTION #4 FULL TEXT: You/Your Family Experience fever (hyperthermia) with Anesthesia Last Oral Intake Last Oral intake: Last Oral Intake NPO since Meds taken in AM with sips of water? Meds patient instructed to take am of surgery PONV PONV - recruitment consultant: PONV - recruitment consultant Female No 02/14/25 09:37 HX of Motion Sickness No 02/14/25 09:37 HX of N/V After Surgery No 02/14/25 09:37 Non-Smoker Yes 02/14/25 09:37 Duration of Surgery greater No 02/14/25 09:37 than 60 minutes Number of Risk Factors 1 02/14/25 09:37 PONV Score Low Risk 02/14/25 09:37 Height & Weight Height & Weight: Anesthesia: Height & Weight Height 6 ft 2 in 11/15/24 14:32 Respiratory Assessment Respiratory Assessment - recruitment consultant: Respiratory Tract Infection Hx - recruitment consultant Hx Respiratory Tract Infection No 02/14/25 09:37 STOP Sleep Apnea STOP Sleep Apnea - recruitment consultant: STOP Sleep Apnea - recruitment consultant Hx Hypertension Yes 02/14/25 09:37 Hx Sleep Apnea No 02/14/25 09:37 CPAP No 10/23/21 21:22 BIPAP No 10/23/21 21:22 Do you snore loudly (louder No 02/14/25 09:37 than talking or can be heard Do you often feel tired/ No 02/14/25 09:37 fatigued/ sleepy during daytime? Has anyone observed you stop Yes 02/14/25 09:37 breathing during sleep? STOP Results Positive 02/14/25 09:37 QUESTION #5 FULL TEXT : Do you snore loudly (louder than talking or can be heard through closed doors)? 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 Specify any problems Hx of Preganancy in last 3 N/A 02/14/25 09:37 Months Nurse Filling Out Transfusion [facility] 02/14/25 09:37 & Questions: Date: 02/14/25 02/14/25 09:37 Time: 09:46 02/14/25 09:37 Patient unable to answer at this time (ie. confused, unrespo /Reproduction History /Reproductive History - recruitment consultant: /Reproductive Hx- recruitment consultant Hx Now Gestational Age (in weeks): EDC: Hx Hx Para Hx Section SAB PFSH Medical History (Updated 02/14/25 @ 09:44 by Deonna Porter) Marijuana use Arthritis History of renal disease Fatty liver History of diverticulitis Former smoker History of stress test History of echocardiogram Cardiology follow-up encounter Diverticulosis Diverticulosis of colon Primary erectile dysfunction Gout LVH (left ventricular hypertrophy) Stage 3 chronic kidney disease Hypertensive emergency Congestive heart failure (CHF) GEORGES (obstructive sleep apnea) Diabetes Congestive heart failure (CHF) Hypertension Obesity HLD (hyperlipidemia) Cardiomyopathy CAD (coronary artery disease) Systolic CHF, chronic Morbid obesity with BMI of 40.0-44.9, adult Home Medications ?Medication ?Instructions ?Recorded ?Last Taken ?Type amlodipine 10 mg tablet 10 mg PO DAILY 12/01/14 08/29/24 History clopidogrel 75 mg tablet 75 mg PO DAILY 12/01/14 08/29/24 History lisinopril 20 mg tablet 20 mg PO BID 12/01/14 08/29/24 History linagliptin 5 mg tablet (Tradjenta) 5 mg PO DAILY 10/20/15 08/29/24 History oxycodone 5 mg tablet 7.5 mg PO 4X/DAY PRN pain 10/20/15 10/20/15 History ipratropium 0.5 mg-albuterol 3 mg 3 ml inhalation Q6H PRN shortness 08/29/24 Unknown Rx (2.5 mg base)/3 mL nebulization of breath #90 mL soln allopurinol 100 mg tablet 300 mg PO DAILYCM 10/02/24 Unknown History aspirin 81 mg tablet,delayed 81 mg PO QDAY 10/02/24 Unknown History release atorvastatin 80 mg tablet 40 mg PO QHS 10/02/24 Unknown History carvedilol 25 mg tablet 12.5 mg PO BID 10/02/24 Unknown History hydrochlorothiazide 25 mg tablet 25 mg PO QDAY 10/02/24 Unknown History tadalafil 20 mg tablet 20 mg PO QDAY PRN sexual activity 10/02/24 Unknown History esomeprazole magnesium 20 mg 40 mg PO QDAY 10/16/24 Unknown History capsule,delayed release (Nexium) tirzepatide 7.5 mg/0.5 mL 7.5 mg subcut WE 01/26/25 02/05/25 History subcutaneous pen injector (Mounjaro) peg 3350-sod sulf,[id number] See Rx Instructions PO .COMPLEX #2 01/28/25 Unknown Rx 178.7-7.3-0.5-1.12-0.9 gram oral mL soln (Suflave) Allergy/AdvReac Type Severity Reaction Status Date / Time metformin Allergy Intermediate Hives Verified 02/14/25 09:30 Penicillins Allergy Intermediate Rash Verified 02/14/25 09:30 hydrocodone bitartrate (From Allergy Mild Itching Verified 02/14/25 09:30 Vicodin) ciprofloxacin Allergy PT UNABLE Verified 02/14/25 09:30 TO RESPOND-NEEDS F/U omeprazole AdvReac Mild doesn't Verified 02/14/25 09:30 work ranitidine (From Zantac) AdvReac Mild ineffective Verified 02/14/25 09:30 Family History Mother Heart disease Hypertension Diabetes CAD (coronary artery disease) CVA (cerebral vascular accident) Father Heart disease Hypertension Sister Diabetes CAD (coronary artery disease) Hypertension Surgical History (Updated 02/14/25 @ 09:44 by Deonna Porter) History of cardiac catheterization History of heart artery stent S/P hernia repair Coronary angioplasty status S/P PTCA (percutaneous transluminal coronary angioplasty) Social History household members: spouse Smoking Status: Former smoker Smokeless tobacco user: other alcohol intake: current alcohol intake frequency: holidays/special occasions only substance use type: does not use Audit: Pertinent Findings Pertinent Findings Echo (EF%) pertinent findings: MR#: [id number] Acct: [id number] Name: STAN CABRERA Rep #: [id number] : 1970 51 From: Mel Hartmann MD Attending Dr: Dr. Shashi Nathan MD Status: ADM IN Ordering Dr: Jewels Combs MD Date: 10/23/21 Location: ICU Sex: M AA Admitted: 10/23/21 Reason For Study: NSTEMI Procedure This was a 2D Doppler, Color Flow transthoracic echocardiogram. The study was technically difficult. Exam performed portable in ICU/CCU. Left Ventricle Severe eccentric left ventricular hypertrophy. The estimated ejection fraction is 50 %. Right Ventricle Mildly dilated right ventricle. Normal systolic function. Atria The left atrium is mildly enlarged. Normal right atrium. Mitral Valve The mitral valve is structurally normal. No prolapse or stenosis seen. Mild (1+) mitral valve insufficiency. Tricuspid Valve Normal tricuspid valve. Trivial tricuspid valve insufficiency. Aortic Valve Normal aortic valve. Pulmonic Valve The pulmonic valve is not well visualized. Great Vessels Normal aortic root. Pericardium/Pleural No pericardial effusion. Recommendation Anesthesia Recommendation Anesthesia recommendation: OPTIMIZED for anesthesia
[2025-02-19 10:42] VITALS: BP 145/115; PULSE 87; RESP 18; TEMP 36.5; O2SAT 99; BMI 45.3
[2025-02-19 10:55] VITALS: BP 145/115; PULSE 87; RESP 18; TEMP 36.5; O2SAT 99
--- NOTE | 2025-02-19 10:55 | PCM.PRE.AN2 ---
ASA Classification* ASA Classification ASA Classification: 3 Assessment & Plan Anesthesia* Anesthesia Assessment Anesthesia Assessment: Discussed sedation and/or anesthesia options, risks, benefits, and alternatives with patient/parents/legal guardian/POA. Questions invited. The patient/parents/legal guardian/POA seems to understand and agrees to proceed with anesthesia plan. Reviewed the physical assessment, medical history, allergy history and patient home medications list prior to surgery/procedure/anesthetic and documented any changes. Performed airway and anesthesia risk assessments. Anesthesia Type Anesthesia Type: MAC Anesthesia Focused Assessment* Temperature: 97.7 F Pulse Rate: 87 Blood Pressure: 145/115 Respiratory Rate: 18 Pulse Ox: 99 Airway Assessment Mouth opens: >3 cm Mallampati Score: II Labs Anesthesia Preop lab: CBC WBC 7.6 K/mm3 (4.4-11.0) 08/29/24 10:45 08/29/24 RBC 5.71 M/mm3 (4.6-6.2) 08/29/24 10:45 08/29/24 Hgb 14.6 g/dL (13.0-16.5) 08/29/24 10:45 08/29/24 Hct 45.6 % (40-54) 08/29/24 10:45 08/29/24 Plt Count 270 K/mm3 (150-450) 08/29/24 10:45 08/29/24 CHEMISTRY Potassium 4.1 mmol/L (3.5-5.1) 08/29/24 10:45 08/29/24 Sodium 139 mmol/L (136-145) 08/29/24 10:45 08/29/24 Magnesium 2.1 mg/dL (1.6-2.6) 10/25/21 06:25 10/25/21 BUN 11 mg/dL (7-18) 08/29/24 10:45 08/29/24 Creatinine 1.16 mg/dL (0.70-1.30) 08/29/24 10:45 08/29/24 Glucose 181 mg/dL (74-106) H 08/29/24 10:45 08/29/24 POC Glucose 369 mg/dL (74-106) H 10/25/21 12:21 10/25/21 TSH 8.600 uIU/mL (0.300-4.200) H 09/18/24 15:14 09/18/24 COAG PT 13.0 SECONDS (11.7-14.9) 10/23/21 21:36 10/23/21 Pre-Assessment Diagnosis/Proposed Procedure Planned Operative Procedure(s): EGD, COLONOSCOPY Anesthesia History Anesthesia History - joy operator helper: Anesthesia History - joy operator helper Hx Hospitalization No 02/14/25 09:37 Any Problems With Anesthesia No 02/14/25 09:37 Cholinesterase deficiency No 02/14/25 09:37 You/Your Family Experience No 02/14/25 09:37 fever (hyperthermia) with Relationship Recent Exposure to Contagious No 02/19/25 10:42 Disease Does patient have nerve No 02/14/25 09:37 stimulator Patient instructed to have device shut off --Does patient have Pacemaker No 02/19/25 10:42 or ICD? When Was Last Pacemaker Check QUESTION #4 FULL TEXT: You/Your Family Experience fever (hyperthermia) with Anesthesia Last Oral Intake Last Oral intake: Last Oral Intake NPO since 05:00 02/19/25 10:42 Meds taken in AM with sips of Yes 02/19/25 10:42 water? Meds patient instructed to AMLODIPINE 02/19/25 10:42 take am of surgery CARVEDILOL PONV PONV - joy operator helper: PONV - joy operator helper Female No 02/14/25 09:37 HX of Motion Sickness No 02/14/25 09:37 HX of N/V After Surgery No 02/14/25 09:37 Non-Smoker Yes 02/14/25 09:37 Duration of Surgery greater No 02/14/25 09:37 than 60 minutes Number of Risk Factors 1 02/14/25 09:37 PONV Score Low Risk 02/14/25 09:37 Height & Weight Height & Weight: Anesthesia: Height & Weight Height 6 ft 1 in 02/19/25 10:42 Weight: 155.7 kg 02/19/25 10:42 Body Mass Index (BMI) 45.3 02/19/25 10:42 Respiratory Assessment Respiratory Assessment - joy operator helper: Respiratory Tract Infection Hx - joy operator helper Hx Respiratory Tract Infection No 02/14/25 09:37 STOP Sleep Apnea STOP Sleep Apnea - joy operator helper: STOP Sleep Apnea - joy operator helper Hx Hypertension Yes 02/14/25 09:37 Hx Sleep Apnea No 02/14/25 09:37 CPAP No 10/23/21 21:22 BIPAP No 10/23/21 21:22 Do you snore loudly (louder No 02/14/25 09:37 than talking or can be heard Do you often feel tired/ No 02/14/25 09:37 fatigued/ sleepy during daytime? Has anyone observed you stop Yes 02/14/25 09:37 breathing during sleep? STOP Results Positive 02/14/25 09:37 QUESTION #5 FULL TEXT : Do you snore loudly (louder than talking or can be heard through closed doors)? 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 Specify any problems Hx of Preganancy in last 3 N/A 02/14/25 09:37 Months Nurse Filling Out Transfusion [facility] 02/14/25 09:37 & Questions: Date: 02/14/25 02/14/25 09:37 Time: 09:46 02/14/25 09:37 Patient unable to answer at this time (ie. confused, unrespo /Reproduction History /Reproductive History - joy operator helper: /Reproductive Hx- joy operator helper Hx Now Gestational Age (in weeks): EDC: Hx Hx Para Hx Section SAB PFSH Medical History Marijuana use Arthritis History of renal disease Fatty liver History of diverticulitis Former smoker History of stress test History of echocardiogram Cardiology follow-up encounter Diverticulosis Diverticulosis of colon Primary erectile dysfunction Gout LVH (left ventricular hypertrophy) Stage 3 chronic kidney disease Hypertensive emergency Congestive heart failure (CHF) [place]GES (obstructive sleep apnea) Diabetes Congestive heart failure (CHF) Hypertension Obesity HLD (hyperlipidemia) Cardiomyopathy CAD (coronary artery disease) Systolic CHF, chronic Morbid obesity with BMI of 40.0-44.9, adult Home Medications ?Medication ?Instructions ?Recorded ?Last Taken ?Type amlodipine 10 mg tablet 10 mg PO DAILY 12/01/14 02/19/25 History clopidogrel 75 mg tablet 75 mg PO DAILY 12/01/14 02/15/25 History lisinopril 20 mg tablet 20 mg PO BID 12/01/14 02/16/25 History linagliptin 5 mg tablet (Tradjenta) 5 mg PO DAILY 10/20/15 02/16/25 History oxycodone 5 mg tablet 7.5 mg PO 4X/DAY PRN pain 10/20/15 10/20/15 History ipratropium 0.5 mg-albuterol 3 mg 3 ml inhalation Q6H PRN shortness 08/29/24 Unknown Rx (2.5 mg base)/3 mL nebulization of breath #90 mL soln allopurinol 100 mg tablet 300 mg PO DAILYCM 10/02/24 Unknown History aspirin 81 mg tablet,delayed 81 mg PO QDAY 10/02/24 Unknown History release atorvastatin 80 mg tablet 40 mg PO QHS 10/02/24 02/16/25 History carvedilol 25 mg tablet 12.5 mg PO BID 10/02/24 02/19/25 History hydrochlorothiazide 25 mg tablet 25 mg PO QDAY 10/02/24 02/16/25 History tadalafil 20 mg tablet 20 mg PO QDAY PRN sexual activity 10/02/24 Unknown History esomeprazole magnesium 20 mg 40 mg PO QDAY 10/16/24 02/16/25 History capsule,delayed release (Nexium) tirzepatide 7.5 mg/0.5 mL 7.5 mg subcut WE 01/26/25 02/05/25 History subcutaneous pen injector (Mounjaro) peg 3350-sod sulf,[id number] See Rx Instructions PO .COMPLEX #2 01/28/25 02/19/25 Rx 178.7-7.3-0.5-1.12-0.9 gram oral mL soln (Suflave) Allergy/AdvReac Type Severity Reaction Status Date / Time metformin Allergy Intermediate Hives Verified 02/19/25 10:39 Penicillins Allergy Intermediate Rash Verified 02/19/25 10:39 hydrocodone bitartrate (From Allergy Mild Itching Verified 02/19/25 10:39 Vicodin) ciprofloxacin Allergy PT UNABLE Verified 02/19/25 10:39 TO RESPOND-NEEDS F/U omeprazole AdvReac Mild doesn't Verified 02/19/25 10:39 work ranitidine (From Zantac) AdvReac Mild ineffective Verified 02/19/25 10:39 Family History Mother Heart disease Hypertension Diabetes CAD (coronary artery disease) CVA (cerebral vascular accident) Father Heart disease Hypertension Sister Diabetes CAD (coronary artery disease) Hypertension Surgical History History of cardiac catheterization History of heart artery stent S/P hernia repair Coronary angioplasty status S/P PTCA (percutaneous transluminal coronary angioplasty) Social History household members: spouse Smoking Status: Former smoker Smokeless tobacco user: other alcohol intake: current alcohol intake frequency: holidays/special occasions only substance use type: does not use Review of Systems (Anesthesia) ROS Narrative System reviewed and no additional complaints, except as documented.
--- NOTE | 2025-02-19 11:40 | SUR.PREOP ---
PT B/P ELEVATED. CANCELLED BY ANESTHESIA. PT HAD NOT TAKEN DIURETIC IN SEVERAL DAYS. REINSTRUCTED PT WHAT MEDS TO CONT TAKING TODAY AND WHAT MEDS TO TAKE MORNING OF PROCEDURE. WRITTEN MED REC SENT WITH PT. PT VERBALIZED UNDERSTANDING. PT TO BE RESCHEDULED FOR AN EGD TOMORROW. HE IS DECLINING THE COLONOSCOPY.
[2025-02-20] VITALS (7 sets, daily range): BP systolic 112–160; BP diastolic 81–96; PULSE 75–98; RESP 16–18; TEMP 36.1–36.9; O2SAT 97–100; BMI 45.3
[2025-02-20] MEDS: Lactated Ringers 1,000 ML 15 ML IV (10:50)
--- NOTE | 2025-02-20 11:09 | PRE.ANES_ITS ---
ASA Classification* ASA Classification ASA Classification: 3 Assessment & Plan Anesthesia* Anesthesia Assessment Anesthesia Assessment: Discussed sedation and/or anesthesia options, risks, benefits, and alternatives with patient/parents/legal guardian/POA. Questions invited. The patient/parents/legal guardian/POA seems to understand and agrees to proceed with anesthesia plan. Reviewed the physical assessment, medical history, allergy history and patient home medications list prior to surgery/procedure/anesthetic and documented any changes. Performed airway and anesthesia risk assessments. Anesthesia Type Anesthesia Type: MAC History Source History Obtained from:: Chart Anesthesia Focused Assessment* Temperature: 97.7 F Pulse Rate: 75 Blood Pressure: 160/96 Respiratory Rate: 16 Pulse Ox: 100 Oxygen Delivery Method: Room Air Airway Assessment Mouth opens: >3 cm Mallampati Score: II Teeth Condition: Intact Neck Range of motion (ROM): Full ROM Labs Anesthesia Preop lab: CBC WBC 7.6 K/mm3 (4.4-11.0) 08/29/24 10:45 08/29/24 RBC 5.71 M/mm3 (4.6-6.2) 08/29/24 10:45 08/29/24 Hgb 14.6 g/dL (13.0-16.5) 08/29/24 10:45 08/29/24 Hct 45.6 % (40-54) 08/29/24 10:45 08/29/24 Plt Count 270 K/mm3 (150-450) 08/29/24 10:45 08/29/24 CHEMISTRY Potassium 4.1 mmol/L (3.5-5.1) 08/29/24 10:45 08/29/24 Sodium 139 mmol/L (136-145) 08/29/24 10:45 08/29/24 Magnesium 2.1 mg/dL (1.6-2.6) 10/25/21 06:25 10/25/21 BUN 11 mg/dL (7-18) 08/29/24 10:45 08/29/24 Creatinine 1.16 mg/dL (0.70-1.30) 08/29/24 10:45 08/29/24 Glucose 181 mg/dL (74-106) H 08/29/24 10:45 08/29/24 POC Glucose 257 mg/dL (74-106) H 02/19/25 10:46 02/19/25 TSH 8.600 uIU/mL (0.300-4.200) H 09/18/24 15:14 COAG PT 13.0 SECONDS (11.7-14.9) 10/23/21 21:36 Pre-Assessment Diagnosis/Proposed Procedure Planned Operative Procedure(s): EGD, COLONOSCOPY Anesthesia History Anesthesia History - clinical staff anesthesiologist: Anesthesia History - clinical staff anesthesiologist Hx Hospitalization No 02/14/25 09:37 Any Problems With Anesthesia No 02/14/25 09:37 Cholinesterase deficiency No 02/14/25 09:37 You/Your Family Experience No 02/14/25 09:37 fever (hyperthermia) with Relationship Recent Exposure to Contagious No 02/20/25 10:41 Disease Does patient have nerve No 02/14/25 09:37 stimulator Patient instructed to have device shut off --Does patient have Pacemaker No 02/20/25 10:41 or ICD? When Was Last Pacemaker Check QUESTION #4 FULL TEXT: You/Your Family Experience fever (hyperthermia) with Anesthesia Last Oral Intake Last Oral intake: Last Oral Intake NPO since 20:00 02/20/25 10:41 Meds taken in AM with sips of Yes 02/20/25 10:41 water? Meds patient instructed to 0700 02/20/25 10:41 take am of surgery coreg lisinopril nexium PONV PONV - clinical staff anesthesiologist: PONV - clinical staff anesthesiologist Female No 02/14/25 09:37 HX of Motion Sickness No 02/14/25 09:37 HX of N/V After Surgery No 02/14/25 09:37 Non-Smoker Yes 02/14/25 09:37 Duration of Surgery greater No 02/14/25 09:37 than 60 minutes Number of Risk Factors 1 02/14/25 09:37 PONV Score Low Risk 02/14/25 09:37 Height & Weight Height & Weight: Anesthesia: Height & Weight Height 6 ft 1 in 02/20/25 10:41 Weight: 155.7 kg 02/20/25 10:41 Body Mass Index (BMI) 45.3 02/20/25 10:41 Respiratory Assessment Respiratory Assessment - clinical staff anesthesiologist: Respiratory Tract Infection Hx - clinical staff anesthesiologist Hx Respiratory Tract Infection No 02/14/25 09:37 STOP Sleep Apnea STOP Sleep Apnea - clinical staff anesthesiologist: STOP Sleep Apnea - clinical staff anesthesiologist Hx Hypertension Yes 02/14/25 09:37 Hx Sleep Apnea No 02/14/25 09:37 CPAP No 10/23/21 21:22 BIPAP No 10/23/21 21:22 Do you snore loudly (louder No 02/14/25 09:37 than talking or can be heard Do you often feel tired/ No 02/14/25 09:37 fatigued/ sleepy during daytime? Has anyone observed you stop Yes 02/14/25 09:37 breathing during sleep? STOP Results Positive 02/14/25 09:37 QUESTION #5 FULL TEXT : Do you snore loudly (louder than talking or can be heard through closed doors)? Tobacco Use History Tobacco Use History - clinical staff anesthesiologist: Tobacco Use History - clinical staff anesthesiologist Tobacco Use Smoking Status Former smoker 02/14/25 09:37 Hx Tobacco Use No 02/14/25 09:37 Years Smoking Packs Smoked per Day Smoking Cessation Date was No - quit smoking greater 02/14/25 09:37 within the last 15 years than 15 years ago Hx Smoking Cessation Date Hx Smoking Cessation Counseling Hematologic Medial History Hematologic Hx - clinical staff anesthesiologist: Hematologic Medical Hx - television writer Hx of Blood Transfusion No 02/14/25 09:37 Hx of Transfusion in last 3 No 02/14/25 09:37 Months Date of Last Transfusion (if within last 3 months) Ever experience any problems No 02/14/25 09:37 with transfusion(s)? Specify any problems Hx of Preganancy in last 3 N/A 02/14/25 09:37 Months Nurse Filling Out Transfusion [facility] 02/14/25 09:37 & Questions: Date: 02/14/25 02/14/25 09:37 Time: 09:46 02/14/25 09:37 Patient unable to answer at this time (ie. confused, unrespo /Reproduction History /Reproductive History - clinical staff anesthesiologist: /Reproductive Hx- clinical staff anesthesiologist Hx Now Gestational Age (in weeks): EDC: Hx Hx Para Hx Section SAB Active Medications Active Medications: Current Medications Generic Name Dose Route Start Last Admin Trade Name Freq PRN Reason Stop Dose Admin Lactated Ringer's 1,000 mls @ 15 mls/hr 02/20/25 10:45 02/20/25 10:50 IV 15 mls/hr .Q48H JENNIFER Administration PFSH Medical History Marijuana use Arthritis History of renal disease Fatty liver History of diverticulitis Former smoker History of stress test History of echocardiogram Cardiology follow-up encounter Diverticulosis Diverticulosis of colon Primary erectile dysfunction Gout LVH (left ventricular hypertrophy) Stage 3 chronic kidney disease Hypertensive emergency Congestive heart failure (CHF) GEORGES (obstructive sleep apnea) Diabetes Congestive heart failure (CHF) Hypertension Obesity HLD (hyperlipidemia) Cardiomyopathy CAD (coronary artery disease) Systolic CHF, chronic Morbid obesity with BMI of 40.0-44.9, adult Home Medications ?Medication ?Instructions ?Recorded ?Last Taken ?Type amlodipine 10 mg tablet 10 mg PO DAILY 12/01/1412/10 07:00 History clopidogrel 75 mg tablet 75 mg PO DAILY 12/01/1401/18 History lisinopril 20 mg tablet 20 mg PO BID 12/01/14 07:00 History linagliptin 5 mg tablet (Tradjenta) 5 mg PO DAILY 10/0102/16/25 History oxycodone 5 mg tablet 7.5 mg PO 4X/DAY PRN pain 10/20/15 History ipratropium 0.5 mg-albuterol 3 mg 3 ml inhalation Q6H PRN shortness 08/29/24 Unknown Rx (2.5 mg base)/3 mL nebulization of breath #90 mL soln allopurinol 100 mg tablet 300 mg PO DAILYCM 10/02/24 U nknown History aspirin 81 mg tablet,delayed 81 mg PO QDAY 10/02/24 Un known History release atorvastatin 80 mg tablet 40 mg PO QHS 10/02/24 History carvedilol 25 mg tablet 12.5 mg PO BID 10/02/2412/10 07:00 History hydrochlorothiazide 25 mg tablet 25 mg PO QDAY 5 02/16/25 History tadalafil 20 mg tablet 20 mg PO QDAY PRN sexual act ivity 10/02/24 Unknown History esomeprazole magnesium 20 mg 40 mg PO QDAY 10/16/24 07:00 History capsule,delayed release (Nexium) tirzepatide 7.5 mg/0.5 mL 7.5 mg subcut WE 01/26/25 History subcutaneous pen injector (Mounjaro) peg 3350-sod sulf,[id number] See Rx Instructions PO .COMPLEX #2 01/28/25 02/19/25 Rx 178.7-7.3-0.5-1.12-0.9 gram oral mL soln (Suflave) Allergy/AdvReac Type Severity Reaction Status Date / Time metformin Allergy Intermediate Hives Verified 02/19/25 10:39 Penicillins Allergy Intermediate Rash Verified 02/19/25 10:39 hydrocodone bitartrate (From Allergy Mild Itching Verified 02/19/25 10:39 Vicodin) ciprofloxacin Allergy PT UNABLE Verified 02/19/25 10:39 TO RESPOND-NEEDS F/U omeprazole AdvReac Mild doesn't Verified 02/19/25 10:39 work ranitidine (From Zantac) AdvReac Mild ineffective Verified 02/19/25 10:39 Family History Mother Heart disease Hypertension Diabetes CAD (coronary artery disease) CVA (cerebral vascular accident) Father Heart disease Hypertension Sister Diabetes CAD (coronary artery disease) Hypertension Surgical History History of cardiac catheterization History of heart artery stent S/P hernia repair Coronary angioplasty status S/P PTCA (percutaneous transluminal coronary angioplasty) Social History household members: spouse Smoking Status: Former smoker Smokeless tobacco user: other alcohol intake: current alcohol intake frequency: holidays/special occasions only substance use type: does not use Review of Systems (Anesthesia) ROS Narrative System reviewed and no additional complaints, except as documented.
--- NOTE | 2025-02-20 11:30 | EGD_PTH ---
PATIENT: STAN CABRERA LOC: EN U#:[id number] AGE/SX: 54/M ROOM: RE02/20/[address]: Dr. Yang Matias DO : 1970 BED: DIS: 02/20/2025 SPEC #: [id number] RECD: 02/20/25 15:32 STATUS: BRIDGER TYLER #: [id number] LORI: 02/20/25 11:[address]: Yang Matias DEPT: SURGICAL PATHOLOGY RECD BY: Isaiah Churchill ENTERED: 02/20/25 15:55 SP TYPE: EGD BIOPSY OT DR: Dr. Darion Jasmine DO Tissues: A - Gastric mucous membrane B - Esophagus, NOS Procedures: Immunohistochemical Stains Surgery Specimen Level IV HEADER OPERATION: EGD with biopsy PRE-OP DIAGNOSIS: Dyspepsia, GERD TISSUE SUBMITTED: A- Gastric antrum biopsy, B- Distal esophagus biopsy MICROSCOPIC DIAGNOSIS A. Gastric antrum, biopsy: - Oxyntic mucosa with features of reactive gastropathy. - IHC negative for H.pylori organisms. B. Distal esophagus, biopsy: - Squamous mucosa with reactive changes. - Columnar mucosa negative for goblet cell metaplasia. MICROSCOPIC DESCRIPTION Slides are reviewed. All matched controls reacted appropriately. These tests were developed and their performance characteristics determined by [facility]. They may not have been cleared or approved by the U.S. Food and Drug Administration. The FDA has determined that such clearance or approval is not necessary. The above immunohistochemical/dualISH markers are viewed by the Pathologist. GROSS DESCRIPTION A. Received in fixative is one container labeled with the patient's name and designated Gastric antrum biopsy. The specimen consists of two irregular fragments of light rojas soft tissue, each measuring 0.4 cm. The specimen is totally submitted in one cassette. B. Received in fixative is one container labeled with the patient's name and designated Distal esophagus biopsy. The specimen consists of one irregular fragment of light rojas soft tissue that measures 0.4 cm. The specimen is totally submitted in one cassette. AR 02/20/2025 CPT:17630j2,83015
--- NOTE | 2025-02-20 11:39 | PCM.HP.STD ---
HPI - General General Date of Admission: 02/20/25 Date of Service: 02/20/25 HPI Narrative STAN CABRERA, is a 54 M who presents for the evaluation of abdominal pain. OV 10.16.25- ?BGI established for belching, diarrhea, gastroparesis. Hepatic steatosis on previous imaging. US abd 4.25- Hepatomegaly and hepatic steatosis OV 11.15.24 Has not completed [facility] [place] [facility] d/t scheduling conflicts. Feeling well. Denies change in GI sx. [facility] Medical History Marijuana use Arthritis History of renal disease Fatty liver History of diverticulitis Former smoker History of stress test History of echocardiogram Cardiology follow-up encounter Diverticulosis Diverticulosis of colon Primary erectile dysfunction Gout LVH (left ventricular hypertrophy) Stage 3 chronic kidney disease Hypertensive emergency Congestive heart failure (CHF) GEORGES (obstructive sleep apnea) Diabetes Congestive heart failure (CHF) Hypertension Obesity HLD (hyperlipidemia) Cardiomyopathy CAD (coronary artery disease) Systolic CHF, chronic Morbid obesity with BMI of 40.0-44.9, adult Home Medications ?Medication ?Instructions ?Recorded ?Last Taken ?Type amlodipine 10 mg tablet 10 mg PO DAILY 12/01/14 02/20/25 07:00 History clopidogrel 75 mg tablet 75 mg PO DAILY 12/01/14 02/15/25 History lisinopril 20 mg tablet 20 mg PO BID 12/01/14 02/20/25 07:00 History linagliptin 5 mg tablet (Tradjenta) 5 mg PO DAILY 10/20/15 02/16/25 History oxycodone 5 mg tablet 7.5 mg PO 4X/DAY PRN pain 10/20/15 10/20/15 History ipratropium 0.5 mg-albuterol 3 mg 3 ml inhalation Q6H PRN shortness 08/29/24 Unknown Rx (2.5 mg base)/3 mL nebulization of breath #90 mL soln allopurinol 100 mg tablet 300 mg PO DAILYCM 10/02/24 Unknown History aspirin 81 mg tablet,delayed 81 mg PO QDAY 10/02/24 Unknown History release atorvastatin 80 mg tablet 40 mg PO QHS 10/02/24 02/16/25 History carvedilol 25 mg tablet 12.5 mg PO BID 10/02/24 02/20/25 07:00 History hydrochlorothiazide 25 mg tablet 25 mg PO QDAY 10/02/24 02/16/25 History tadalafil 20 mg tablet 20 mg PO QDAY PRN sexual activity 10/02/24 Unknown History esomeprazole magnesium 20 mg 40 mg PO QDAY 10/16/24 02/20/25 07:00 History capsule,delayed release (Nexium) tirzepatide 7.5 mg/0.5 mL 7.5 mg subcut WE 01/26/25 02/05/25 History subcutaneous pen injector (Mounjaro) peg 3350-sod sulf,[id number] See Rx Instructions PO .COMPLEX #2 01/28/25 02/19/25 Rx 178.7-7.3-0.5-1.12-0.9 gram oral mL soln (Suflave) Allergy/AdvReac Type Severity Reaction Status Date / Time metformin Allergy Intermediate Hives Verified 02/19/25 10:39 Penicillins Allergy Intermediate Rash Verified 02/19/25 10:39 hydrocodone bitartrate (From Allergy Mild Itching Verified 02/19/25 10:39 Vicodin) ciprofloxacin Allergy PT UNABLE Verified 02/19/25 10:39 TO RESPOND-NEEDS F/U omeprazole AdvReac Mild doesn't Verified 02/19/25 10:39 work ranitidine (From Zantac) AdvReac Mild ineffective Verified 02/19/25 10:39 Family History Mother Heart disease Hypertension Diabetes CAD (coronary artery disease) CVA (cerebral vascular accident) Father Heart disease Hypertension Sister Diabetes CAD (coronary artery disease) Hypertension Surgical History History of cardiac catheterization History of heart artery stent S/P hernia repair Coronary angioplasty status S/P PTCA (percutaneous transluminal coronary angioplasty) Social History household members: spouse Smoking Status: Former smoker Smokeless tobacco user: other alcohol intake: current alcohol intake frequency: holidays/special occasions only substance use type: does not use ROS Constitutional Constitutional: Denies fatigue, fever(s), poor appetite, weight gain or weight loss Gastrointestinal Gastrointestinal: Denies belching, bloating, change in bowel habits, change in stool character, chewing difficulty, coffee ground emesis, constipation, cramping, diarrhea, dyspepsia, dysphagia, early satiety, excessive flatus, fecal incontinence, heartburn, hematemesis, hematochezia, hemorrhoids, loose stools, melena, nausea, odynophagia, rectal bleeding, tenesmus, vomiting or weight changes Vital Signs Vital Signs Vital Signs: 02/20/25 10:41 02/20/25 10:41 02/20/25 11:10 Temperature 97.7 F L 97.7 F L Temperature Source Temporal Pulse Rate 75 75 Respiratory Rate 16 16 Respiratory Pattern Normal Blood Pressure 160/96 H 160/96 H Blood Pressure Mean 117 Blood Pressure Source Monitor Blood Pressure Position Semi-Fowlers Blood Pressure Location Right Arm Pulse Ox 100 100 Oxygen Delivery Method Room Air Room Air Weight Weight: 343 lb 4.156 oz Body Mass Index (BMI) 45.3 Physical Exam Const alert, oriented x3, no apparent distress and healthy appearing General Appearance: cooperative GI normal to inspection, nondistended, normoactive bowel sounds, soft to palpation, non-tender and non-distended Percussion: normal to percussion Rectal Exam: deferred Results Lab / Micro Data Labs: Laboratory Results - last 24 hr 02/20/25 10:48: POC Glucose 312 H Assessment & Plan Assessment/Plan (1) Dyspepsia: (2) GERD (gastroesophageal reflux disease): QUALIFIERS: Esophagitis presence: esophagitis presence not specified Qualified Code(s): K21.9 - Gastro-esophageal reflux disease without esophagitis PLAN: Assessment and Plan Assessment and Plan (1) Metabolic dysfunction-associated steatotic liver disease (MASLD): Status: Chronic Plan: Fib 4 score is 0.97 but is morbidly obese 44.4 kg/m? therefore not accurate. Patient has not scheduled FibroScan in [place] and therefore schedule it. Serum ELF test also ordered. Patient already taking Mounjaro states 7.5 mg weekly but is not showing home medication list. It shows patient is on Tresiba, long-acting insulin but unclear about the dose. Advised follow-up with PCP. Mounjaro, GLP agonist has been found to decrease fatty liver and improved fibrosis. (2) GERD (gastroesophageal reflux disease): Status: Chronic Qualifiers: Esophagitis presence: esophagitis presence not specified Qualified Code(s): K21.9 - Gastro-esophageal reflux disease without esophagitis Plan: He has side effect improved after some time on Mounjaro. Patient is not having diarrhea. He states he has 1 BM per day and it is formed. Patient is scheduled for EGD and colonoscopy in January 2025. Follow-up with Nathalia Serrano in 3 months Orders: Orders
--- NOTE | 2025-02-20 12:20 | OP.PROVAT_ITS ---
02/20/2025 Darion Jasmine [address] [facility] [place] [address] Re : Upper GI endoscopy procedure for Manuelito Mckeon Dear Dr. Jasmine This procedure was performed on Thursday, February 20, 2025. My impressions and recommendations are as follows: Impressions : - Z-line irregular, 40 cm from the incisors. Biopsied. - Erythematous mucosa in the gastric body and antrum. Biopsied. - No gross lesions in the second portion of the duodenum. Recommendations : - Discharge patient to home. - Resume previous diet. - Continue present medications. - Await pathology results. My findings are described in the full procedure note, which is enclosed. If I can be of further assistance, please feel free to contact me at . Sincerely, Yang Matias, 02/20/2025 12:20:02 PM This report has been signed electronically.
--- NOTE | 2025-02-20 12:20 | OP.EGD_ITS ---
Patient Name: Manuelito Mckeon Procedure Date: 02/20/2025 11:34 AM Date of : 1970 Age: 54 Procedure: Upper GI endoscopy Indications: Epigastric abdominal pain Providers: Yang Matias DO Referring MD: Darion Jasmine Medicines: Monitored Anesthesia Care Patient Profile: This is a 54 year old male. Refer to note in patient chart for documentation of history and physical. Patient has symptoms of chronic abdominal distention, chronic epigastric abdominal pain and chronic dyspepsia. Complications: No immediate complications. Procedure: Pre-Anesthesia Assessment: - Prior to the procedure, a History and Physical was performed, and patient medications and allergies were reviewed. The patient is competent. The risks and benefits of the procedure and the sedation options and risks were discussed with the patient. All questions were answered and informed consent was obtained. Patient identification and proposed procedure were verified by the physician in the pre-procedure area. Mental Status Examination: alert and oriented. Airway Examination: normal oropharyngeal airway and neck mobility. Respiratory Examination: clear to auscultation. CV Examination: normal. Prophylactic Antibiotics: The patient does not require prophylactic antibiotics. Prior Anticoagulants: The patient has taken no anticoagulant or antiplatelet agents. ASA Grade Assessment: II - A patient with mild systemic disease. After reviewing the risks and benefits, the patient was deemed in satisfactory condition to undergo the procedure. The anesthesia plan was to use monitored anesthesia care (MAC). Immediately prior to administration of medications, the patient was re-assessed for adequacy to receive sedatives. The heart rate, respiratory rate, oxygen saturations, blood pressure, adequacy of pulmonary ventilation, and response to care were monitored throughout the procedure. The physical status of the patient was re-assessed after the procedure. After obtaining informed consent, the endoscope was passed under direct vision. Throughout the procedure, the patient's blood pressure, pulse, and oxygen saturations were monitored continuously. The gastroscope was introduced through the mouth, and advanced to the second part of duodenum. The upper GI endoscopy was accomplished without difficulty. The patient tolerated the procedure well. Scope In: 12:03:29 PM Scope Out: 12:11:06 PM Total Procedure Duration Time 0 hours 7 minutes 37 seconds Findings: The Z-line was irregular and was found 40 cm from the incisors. Biopsies were taken with a cold forceps for histology. Verification of patient identification for the specimen was done. Estimated blood loss was minimal. Patchy mildly erythematous mucosa without bleeding was found in the gastric body and in the gastric antrum. Biopsies were taken with a cold forceps for histology. Biopsies were taken with a cold forceps for Helicobacter pylori testing. Verification of patient identification for the specimen was done. Estimated blood loss was minimal. No gross lesions were noted in the second portion of the duodenum. Impression: - Z-line irregular, 40 cm from the incisors. Biopsied. - Erythematous mucosa in the gastric body and antrum. Biopsied. - No gross lesions in the second portion of the duodenum. Recommendation: - Discharge patient to home. - Resume previous diet. - Continue present medications. - Await pathology results. Procedure Code(s): --- Professional --- 35251, Esophagogastroduodenoscopy, flexible, transoral; with biopsy, single or multiple CPT copyright 2021 [employer]. All rights reserved. The codes documented in this report are preliminary and upon braille coder review may be revised to meet current compliance requirements. Yang Matias DO 02/20/2025 12:20:02 PM This report has been signed electronically. Number of Addenda: 0 Note Initiated On: 02/20/2025 11:34 AM
--- NOTE | 2025-02-20 12:25 | PCM.POST.ANE ---
Anesthesia: Postop Eval I Current Vital Signs Temperature: 98.5 F Pulse Rate: 94 Blood Pressure: 134/87 Respiratory Rate: 16 Pulse Ox: 97 Assessment Airway patent: Yes Spontaneous unlabored respirations: Yes nausea: No Vomiting: No Anesthesia Complication: No Fluid Hydration Crystalloid volume administer (ml): 200 Total IV fluid infused: 200 Progress Note Anesthesia document: Postop Eval 1 completed: Yes
--- NOTE | 2025-02-20 17:04 | POSTOPAN2_ITS ---
Anesthesia Postop Eval I Sum Postop Eval Completion status Anesthesia document: Postop Eval 1 completed: Yes Anesthesia Postop Eval I Summary Anesthesia Postop Eval I Summary: Anesthesia Postop Eval I: Assessment Summary Airway patent Yes 02/20/25 12:25 COLORIST [email or web address] Spontaneous unlabored Yes 02/20/25 12:25 COLORIST [email or web address].TNES respirations Mental status nausea No 02/20/25 12:25 COLORIST [email or web address].TNES Vomiting No 02/20/25 12:25 COLORIST [email or web address] Anesthesia Postop Eval I: Fluid Summary Crystalloid volume administer 200 02/20/25 12:25 COLORIST [email or web address].TNES (ml) Colloids volume administered ( ml) Blood Product volume administered (ml) Total IV fluid infused 200 02/20/25 12:25 COLORIST [email or web address] Anesthesia Postop Eval I: Summary Notes Anesthesia Complication No 02/20/25 12:25 COLORIST [email or web address].TNES Anesthesia Complication Comment: Post-operative progress note Anesthesia: Postop Eval II Evaluation Mental status: Awake and Calm Pain Level: 1 nausea: No Vomiting: No Complications Anesthesia Complication: No
--- NOTE | 2025-02-20 17:04 | PCM.POSTANE2 ---
Anesthesia Postop Eval I Sum Postop Eval Completion status Anesthesia document: Postop Eval 1 completed: Yes Anesthesia Postop Eval I Summary Anesthesia Postop Eval I Summary: Anesthesia Postop Eval I: Assessment Summary Airway patent Yes 02/20/25 12:25 [employer][email or web address] Spontaneous unlabored Yes 02/20/25 12:25 [employer].TNES respirations Mental status nausea No 02/20/25 12:25 [employer].TNES Vomiting No 02/20/25 12:25 [employer].[email or web address] Anesthesia Postop Eval I: Fluid Summary Crystalloid volume administer 200 02/20/25 12:25 [employer].TNES (ml) Colloids volume administered ( ml) Blood Product volume administered (ml) Total IV fluid infused 200 02/20/25 12:25 [employer].[email or web address] Anesthesia Postop Eval I: Summary Notes Anesthesia Complication No 02/20/25 12:25 [employer].[email or web address] Anesthesia Complication Comment: Post-operative progress note Anesthesia: Postop Eval II Evaluation Mental status: Awake and Calm Pain Level: 1 nausea: No Vomiting: No Complications Anesthesia Complication: No
== END 2025-02-20 12:58 | disposition home or self-care (01) ==
LOC: EN 10:30 → AC 10:31
PROVIDERS: PCP Family Medicine; Referring Provider Family Medicine; Visit Provider Internal Medicine Gastroenterology
PROC: 0DJ08ZZ Inspection of Upper Intestinal Tract, Via Natural or Artificial Opening Endoscopic (ICD-10-PCS; CPT 43235; principal; 2025-02-20 11:25)
DX: K21.9 Gastro-esophageal reflux disease without esophagitis (principal); E66.01 Morbid (severe) obesity due to excess calories; E11.43 Type 2 diabetes mellitus with diabetic autonomic (poly)neuropathy; E11.22 Type 2 diabetes mellitus with diabetic chronic kidney disease; N18.30 Chronic kidney disease, stage 3 unspecified; K31.84 Gastroparesis; I25.10 Atherosclerotic heart disease of native coronary artery without angina pectoris; E78.5 Hyperlipidemia, unspecified; K76.0 Fatty (change of) liver, not elsewhere classified; Z87.891 Personal history of nicotine dependence; Z79.02 Long term (current) use of antithrombotics/antiplatelets; Z79.84 Long term (current) use of oral hypoglycemic drugs; Z95.5 Presence of coronary angioplasty implant and graft; G47.33 Obstructive sleep apnea (adult) (pediatric); Z87.19 Personal history of other diseases of the digestive system; R10.13 Epigastric pain; K31.9 Disease of stomach and duodenum, unspecified
CPT/HCPCS: 43239; 82962; 88305; 88342